=== PATIENT | female | born 1955 | race Caucasian/White ===

== ENCOUNTER → 2016-06-27 | Outpatient (CLI) | payer MEDICARE, MEDICAID ==
--- NOTE | 2016-06-27 19:43 | Diagnostic Imaging Report ---
INDICATION: Right knee pain x1 week. No known injury. TECHNIQUE: Three views of the right knee. CORRELATION STUDY: None FINDINGS: There is mild asymmetric joint space narrowing medially. Mild marginal osteophyte formation present. The articular surfaces demonstrate very slight loss of smooth contour medially. No definitive calcified intra-articular loose body. Minimal spur formation at the superior pole of patella. IMPRESSION: 1. Negative for acute bony abnormality of the knee. Mild degenerative changes particularly at the medial compartment. Dictated by: Dictated on workstation # [id number]
== END ==
LOC: RAD 15:12
PROVIDERS: ATTEND Family Medicine
DX: M25.561 Pain in right knee (principal)
CPT/HCPCS: 73562

== ENCOUNTER 2016-10-26 12:13 | Emergency (ER) | payer MEDICARE, MEDICAID ==
[2016-10-26] MEDS ORDERED: VIT1TABL82 PO (12:31)
[2016-10-26] MEDS ORDERED: CETI10TA17 (12:31)
[2016-10-26] MEDS ORDERED: DIVA500T PO (12:31)
[2016-10-26] MEDS ORDERED: HYDR-757 PO (12:43)
[2016-10-26] MEDS ORDERED: NS IV 500 ML 500 ML ONE (12:44)
[2016-10-26] MEDS ORDERED: ETOMIDATE IV SOLN 20 MG/10 ML VIAL IV ONE (12:45)
== END 2016-10-26 13:44 | disposition home or self-care (01) ==
DX: S43.004A Unspecified dislocation of right shoulder joint, initial encounter (principal); X58.XXXA Exposure to other specified factors, initial encounter

== ENCOUNTER → 2016-10-26 | Outpatient (CLI) | payer MEDICARE, MEDICAID ==
[~2016-10-26] MED LIST: CETI10TA17; DIVA500T PO; HYDR-757 PO; VIT1TABL82 PO
--- NOTE | 2016-10-26 11:03 | Diagnostic Imaging Report ---
INDICATION: Patient quit using right arm. Findings: There is anterior inferior dislocation of the humeral head with respect to the glenoid fossa. There are no humeral fractures present. Elbow appears in good alignment. IMPRESSION: Dislocation of the glenohumeral joint with no fractures demonstrated. Dictated by: Dictated on workstation # [id number]
--- NOTE | 2016-10-26 11:03 | Diagnostic Imaging Report ---
INDICATION: Quit using right arm. FINDINGS: There is anterior inferior dislocation of the humeral head with respect to the glenoid fossa. No fractures are demonstrated. AC joint is in good alignment. Scapula appears intact. IMPRESSION: Anterior-inferior dislocation of the humerus. Report was called to Dr. Arellano by roberto at 11:03 am. Dictated by: Dictated on workstation # [id number]
== END ==
LOC: RAD 10:38
PROVIDERS: ATTEND Family Medicine
DX: S43.014A Anterior dislocation of right humerus, initial encounter (principal); X58.XXXA Exposure to other specified factors, initial encounter; Y99.8 Other external cause status
CPT/HCPCS: 73030; 73060

== ENCOUNTER 2020-08-02 09:46 | Emergency (ER) | payer MEDICARE, MEDICAID ==
[~2020-08-02] VITALS: Ht 149.8 cm; Wt 40.8 kg
[2020-08-02 09:46] VITALS: BP 128/84
[~2020-08-02 09:46] MED LIST changes: +HYDR-4226 PO; -HYDR-757 PO
--- NOTE | 2020-08-02 10:27 | ED General ---
General Chief Complaint: Hip/Pelvic Problems Stated Complaint: HIP PAIN Source of Information: Caregiver, Old Records Exam Limitations: Physical Impairments History of Present Illness Date Seen by Provider: Aug 02, 2020 Time Seen by Provider: 10:18 Initial Comments Patient is a 65-year-old female who is brought to the emergency department by a caregiver today with a chief complaint of concern for possible hip pain or illness. Keenan has a history of significant mental impairment and is nonverbal on a routine basis. Caregiver at the bedside states that she really did not want to get herself dressed today. She does not seem to be is eager to participate in activities and she is not moving around like she normally does. No reported fevers or chills. No vomiting or diarrhea is noted. The patient wears adult diapers. No concern for recent falls or trauma. She did receive her Covid vaccination on July 22, her first dose. Caregiver at the bedside does not believe that the symptoms have been ongoing since the Covid vaccination but he states could be related to her vaccination. She was given a dose of ibuprofen yesterday and he seemed to believe that she was a little bit more perky this morning when she was gotten up. Review of systems limited secondary to the patient's nonverbal/mental impairment state. Severity: Mild Associated Systoms: Malaise; No Nausea/Vomiting Allergies and Home Medications Allergies Coded Allergies: No Known Drug Allergies (Unverified , 10/26/16) Home Medications Hydrocodone/Acetaminophen 1 Each Tablet, 1 EACH PO Q4H PRN for PAIN-SEVERE Prescribed by: SRINIVAS LEONARD on 10/26/16 1243 Patient Home Medication List Home Medication List Reviewed: Yes Review of Systems Review of Systems Constitutional: see HPI EENTM: no symptoms reported Respiratory: no symptoms reported; No cough Cardiovascular: no symptoms reported Gastrointestinal: No diarrhea, No vomiting Genitourinary: no symptoms reported Skin: no symptoms reported Psychiatric/Neurological: Other (patient less active than normal) Past Iryqulw-Cfsskh-Oxxyvl Hx Patient Social History Alcohol Use: Denies Use Smoking Status: Never a Smoker Recent Hopitalizations: No Immunizations Up To Date Tetanus Booster (TDap): Unknown Seasonal Allergies Seasonal Allergies: Yes Past Medical History Surgeries: Yes (BILATERAL HIP PAIN) Orthopedic Respiratory: No Cardiac: No Neurological: No Genitourinary: No Gastrointestinal: No Musculoskeletal: No Endocrine: No HEENT: No Cancer: No Psychosocial: No Integumentary: No Blood Disorders: No Physical Exam Vital Signs Capillary Refill : Height, Weight, BMI Height: 5'0" Weight: 96lbs. oz. 43.798599fo; BMI Method:Stated General Appearance: No Apparent Distress, WD/WN HEENT: Other (Patient has anisocoria left eye, chronic) Neck: Normal Inspection Respiratory: Lungs Clear, Normal Breath Sounds, No Accessory Muscle Use, No Respiratory Distress Cardiovascular: Regular Rate, Rhythm Gastrointestinal: Normal Bowel Sounds, Non Tender, Soft Extremity: Normal Capillary Refill, Normal Inspection, Normal Range of Motion, Non Tender Neurologic/Psychiatric: Alert, No Motor/Sensory Deficits, Normal Mood/Affect Skin: Normal Color, Warm/Dry Procedures/Interventions Patient Education: Explained Benefits Breath Sounds per Auscultation: Clear Heart Sounds per Auscultation: Regular Airway Exam: Mouth opens >2 fingers Sedation Adminstration Time: 1257 Re-examination Time: 1326 Progress/Results/Core Measures Suspected Sepsis SIRS Temperature: Pulse: Respiratory Rate: Blood Pressure / Mean: Results/Orders Vital Signs/I&O Capillary Refill : Progress Note : Time: 10:29 Progress Note Patient seen and examined, 65-year-old with severe mental impairment presents to the emergency department with concern for "not acting right". Evaluation today includes a physical exam. On exam Keenan looks well she is appropriately alert and interactive with this examiner. She grunts and groans on a normal basis according to the caregiver at the bedside. She does not seem to be in any distress with manipulation of her lower extremities. She has good strength. Appears to have intact sensation. Palpation of the abdomen and suprapubic area does not elicit any grimacing or distress from the patient. I do not believe that she has any clinical indications for concern for urinary tract infection. She is clean and well-kept. She does not have any objective findings concerning for sepsis. She is not tachycardic hypotensive or hypoxic. Reassurance is given to the caregiver. He verbalizes understanding. All questions are sought and answered. Patient is stable for discharge. Departure Impression Primary Impression: Well adult exam Disposition: 01 HOME, SELF-CARE Condition: Stable Departure-Patient Inst. Decision time for Depature: 10:31 Referrals: JORI TOLENTINO DO (PCP/Family) Primary Care Physician Patient Instructions: Yearly Physical for Adults Add. Discharge Instructions: Continue current medications as previously prescribed. Offer a dose of Tylenol or ibuprofen today to see if this improves symptoms. Otherwise, return to the emergency room for re evaluation for any fevers, vomiting, new emergent concerns. WENDY MANNING MD Aug 02, 2020 10:27
== END 2020-08-02 10:38 | disposition home or self-care (01) ==
LOC: EDUNIT# 09:46 → ER 09:47
DX: Z00.00 Encounter for general adult medical examination without abnormal findings (principal); H57.02 Anisocoria
CPT/HCPCS: 99282

== ENCOUNTER 2021-06-16 13:54 | Inpatient (IN) | payer MEDICARE, MEDICAID ==
[~2021-06-16] VITALS: Ht 152.4 cm; Wt 43.5 kg
[~2021-06-16 13:54] MED LIST changes: -CETI10TA17; +CETI10TA17 PO
--- NOTE | 2021-06-16 14:17 | ED General ---
General Stated Complaint: DEHYDRATION Source of Information: Patient Exam Limitations: No Limitations History of Present Illness Date Seen by Provider: Jun 16, 2021 Time Seen by Provider: 14:17 Initial Comments To ER by private vehicle from Dr. Tolentino's office with reports of general weakness. She is less active today. Normally the patient is ambulatory but is not today. She is mentally retarded and nonverbal per baseline though she is typically more perk and active. She was seen at Dr. Tolentino's office, had some outpatient labs done, those showed hypernatremia with a sodium of 152, GFR 35 and some slightly elevated liver enzymes. She was referred to the emergency room. Timing/Duration: 1-2 Days Severity: Moderate Associated Systoms: Denies Symptoms Allergies and Home Medications Allergies Coded Allergies: No Known Drug Allergies (Unverified , 10/26/16) Patient Home Medication List Home Medication List Reviewed: Yes Cetirizine HCl (Cetirizine HCl) 10 Mg Tablet, (Reported) Entered as Reported by: MARCUS GONZALEZ on 10/26/16 1231 Divalproex Sodium (Depakote) 500 Mg Tablet., Unknown Dose PO, (Reported) Entered as Reported by: MARCUS GONZALEZ on 10/26/16 1231 Hydrocodone/Acetaminophen (Hydrocodone/Acetaminophen 5 MG/325 MG TAB) 1 Each Tablet, 1 EACH PO Q4H PRN for PAIN-SEVERE Prescribed by: SRINIVAS LEONARD on 10/26/16 1243 Vit B Comp/C/FA/Iron/Vit E (Vitamin B Complex Tablet) 1 Each Tablet, 1 EACH PO, (Reported) Entered as Reported by: MARCUS GONZALEZ on 10/26/16 1231 Review of Systems Review of Systems Constitutional: see HPI EENTM: see HPI Respiratory: no symptoms reported Cardiovascular: no symptoms reported Genitourinary: no symptoms reported Musculoskeletal: no symptoms reported Skin: no symptoms reported Psychiatric/Neurological: No Symptoms Reported Hematologic/Lymphatic: No Symptoms Reported Immunological/Allergic: no symptoms reported Past Avjtnlx-Jioaxe-Qlhjya Hx Immunizations Up To Date Tetanus Booster (TDap): Unknown Seasonal Allergies Seasonal Allergies: Yes Past Medical History Surgeries: Yes (BILATERAL HIP PAIN) Orthopedic Respiratory: No Cardiac: No Neurological: No Genitourinary: No Gastrointestinal: No Musculoskeletal: No Endocrine: No HEENT: No Cancer: No Psychosocial: No Integumentary: No Blood Disorders: No Physical Exam Vital Signs Vital Signs - First Documented 06/16/21 14:00 Temp 36.0 Pulse 84 Resp 16 B/P (MAP) 109/71 (84) O2 Delivery Room Air Capillary Refill : Height, Weight, BMI Height: 5'0" Weight: 96lbs. oz. 43.313994fk; 18.00 BMI Method:Stated General Appearance: No Apparent Distress, WD/WN, Thin Eyes: Bilateral Eye Normal Inspection, Bilateral Eye PERRL, Bilateral Eye EOMI Neck: Full Range of Motion, Normal Inspection Respiratory: No Accessory Muscle Use, No Respiratory Distress Cardiovascular: Regular Rate, Rhythm, Normal Peripheral Pulses Gastrointestinal: Normal Bowel Sounds, Non Tender, Soft Genital/Rectal: Other (Assisted RN with straight catheterization. 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 We were unable to pass any catheter through that including even a 5 Grenadian feeding tube.) Extremity: Normal Capillary Refill, Normal Inspection Neurologic/Psychiatric: Other Skin: Normal Color, Warm/Dry, Other (Nonverbal, alert looking around the room. Minor bruising proximal right thigh) Focused Exam Lactate Level 06/16/21 15:00: Lactic Acid Level 1.35 Lactic Acid Level Laboratory Tests Test 06/16/21 15:00 Lactic Acid Level 1.35 MMOL/L (0.50-2.00) Procedures/Interventions Patient Education: Explained Benefits Breath Sounds per Auscultation: Clear Heart Sounds per Auscultation: Regular Airway Exam: Mouth opens >2 fingers Sedation Adminstration Time: 1257 Re-examination Time: 1326 Progress/Results/Core Measures Suspected Sepsis SIRS Temperature: Pulse: Respiratory Rate: Laboratory Tests 06/16/21 14:28: White Blood Count 8.7 Blood Pressure / Mean: 06/16/21 15:00: Lactic Acid Level 1.35 Laboratory Tests 06/16/21 14:28: Creatinine 1.32H, INR Comment 1.0, Platelet Count 259, Total Bilirubin 0.5 Results/Orders Lab Results Laboratory Tests Test 06/16/21 14:28 06/16/21 15:00 Range/Units White Blood Count 8.7 4.3-11.0 10^3/uL Red Blood Count 3.47 L 3.80-5.11 10^6/uL Hemoglobin 10.8 L 11.5-16.0 g/dL Hematocrit 34 L 35-52 % Mean Corpuscular Volume 98 80-99 fL Mean Corpuscular Hemoglobin 31 25-34 pg Mean Corpuscular Hemoglobin Concent 32 32-36 g/dL Red Cell Distribution Width 16.1 H 10.0-14.5 % Platelet Count 259 130-400 10^3/uL Mean Platelet Volume 11.9 9.0-12.2 fL Immature Granulocyte % (Auto) 1 % Neutrophils (%) (Auto) 78 H 42-75 % Lymphocytes (%) (Auto) 14 12-44 % Monocytes (%) (Auto) 5 0-12 % Eosinophils (%) (Auto) 2 0-10 % Basophils (%) (Auto) 0 0-10 % Neutrophils # (Auto) 6.8 1.8-7.8 10^3/uL Lymphocytes # (Auto) 1.2 1.0-4.0 10^3/uL Monocytes # (Auto) 0.5 0.0-1.0 10^3/uL Eosinophils # (Auto) 0.2 0.0-0.3 10^3/uL Basophils # (Auto) 0.0 0.0-0.1 10^3/uL Immature Granulocyte # (Auto) 0.1 0.0-0.1 10^3/uL Prothrombin Time 13.4 12.2-14.7 SEC INR Comment 1.0 0.8-1.4 Activated Partial Thromboplast Time 34 24-35 SEC Sodium Level 151 H 135-145 MMOL/L Potassium Level 4.1 3.6-5.0 MMOL/L Chloride Level 112 H 98-107 MMOL/L Carbon Dioxide Level 28 21-32 MMOL/L Anion Gap 11 5-14 MMOL/L Blood Urea Nitrogen 46 H 7-18 MG/DL Creatinine 1.32 H 0.60-1.30 MG/DL Estimat Glomerular Filtration Rate 45 BUN/Creatinine Ratio 35 Glucose Level 122 H 70-105 MG/DL Calcium Level 10.0 8.5-10.1 MG/DL Corrected Calcium 10.5 H 8.5-10.1 MG/DL Total Bilirubin 0.5 0.1-1.0 MG/DL Aspartate Amino Transf (AST/SGOT) 136 H 5-34 U/L Alanine Aminotransferase (ALT/SGPT) 286 H 0-55 U/L Alkaline Phosphatase 175 H 40-136 U/L Total Protein 7.2 6.4-8.2 GM/DL Albumin 3.4 3.2-4.5 GM/DL Lactic Acid Level 1.35 0.50-2.00 MMOL/L My Orders Orders - SRINIVAS LEONARD APRN Cbc With Automated Diff (06/16/21 14:16) Comprehensive Metabolic Panel (06/16/21 14:16) Blood Culture (06/16/21 14:16) Sputum Culture (06/16/21 14:16) Urinalysis (06/16/21 14:16) Urine Culture (06/16/21 14:16) Protime With Inr (06/16/21 14:16) Partial Thromboplastin Time (06/16/21 14:16) Chest 1 View, Ap/Pa Only (06/16/21 14:16) Ed Iv/Invasive Line Start (06/16/21 14:16) Ed Iv/Invasive Line Start (06/16/21 14:16) Vital Signs Adult Sepsis Patie Q15M (06/16/21 14:16) O2 (06/16/21 14:16) Remove Rings In Anticipation O (06/16/21 14:16) Lactic Acid Analyzer (06/16/21 14:16) Lactated Ringers (Lr 1000 Ml Iv Solution (06/16/21 14:30) Straight Cath (Urinary) (06/16/21 14:16) Ct Head/Cervical Spine Wo (06/16/21 15:32) Pelvis With Right Hip 2-3views (06/16/21 15:30) Fentanyl Inj (Sublimaze Injection) (06/16/21 15:45) Lidocaine 2% (Urojet) (Xylocaine Urojet) (06/16/21 16:30) Medications Given in ED Current Medications Medications Dose Ordered Sig/Seng Route Start Time Stop Time Status Last Admin Dose Admin Fentanyl Citrate 25 mcg ONCE PRN IVP 06/16/21 15:45 06/16/21 16:39 25 MCG Vital Signs/I&O 06/16/21 14:00 Temp 36.0 Pulse 84 Resp 16 B/P (MAP) 109/71 (84) O2 Delivery Room Air Capillary Refill : Departure Communication (Admissions) NAME: JAMAR HUTCHINSON MED REC#: [id number] PT STATUS: REG ER : 1955 PHYSICIAN: SRINIVAS LEONARD APRN ADMIT DATE: 06/16/21/ER Draft Date of Exam:06/16/21 PELVIS WITH RIGHT HIP 2-3VIEWS INDICATION: Fall. COMPARISON: None. FINDINGS: Frontal radiographic view of the pelvis and two dedicated radiographic views of the right hip were obtained and show acute appearing intertrochanteric fracture of the proximal right femur. There is mild impaction with angulation at the fracture site. Femoroacetabular joint space is maintained. Postsurgical changes of previous left hip hemiarthroplasty are noted. Femoral component appears well seated. No unexpected radiopaque foreign bodies are seen. Included portions of the abdomen and pelvis show a large amount of air and stool within the colon and rectum. IMPRESSION: 1. Acute intertrochanteric fracture of the proximal right femur. 2. Large amount of colorectal air and stool. Please correlate for impaction/constipation. Dictated on workstation # [id number] Dict: 06/16/21 1546 Trans: 06/16/21 1550 [id number] Interpreted by: JOSE MILLER MD Electronically signed by: NAME: JAMAR HUTCHINSON [facility] REC#: [id number] PT STATUS: REG ER : 1955 PHYSICIAN: SRINIVAS LEONARD APRN ADMIT DATE: 06/16/21/ER Draft Date of Exam:06/16/21 CT HEAD/CERVICAL SPINE WO CLINICAL INDICATION: Patient is status post fall. Patient complains of abnormal labs from PCP. EXAM: Head CT without IV contrast with sagittal and coronal reformations. Axial CT scan of the cervical spine with sagittal and coronal reformations. Auto Exposure Controls were utilized during the CT exam to meet ALARA standards for radiation dose reduction. COMPARISON: None. FINDINGS: Head CT: There is no evidence of acute cerebral infarct, intracranial hemorrhage, or gross mass effect. The brain parenchymal volume appears appropriate for patient's age. There is normal sainz-white matter distinction. There is no significant midline shift or herniation. There is no evidence of hydrocephalus. The basal cisterns are unremarkable. There is no skull fracture. There is a partially visualized dystrophic appearing area of calcification involving the right nasal cavity, which measures 2.9 cm x 1.4 cm in the AP x transverse dimension. There are bony sclerotic changes and thickening of the bilateral maxillary sinuses and sphenoid sinus. Skull, extracranial soft tissue, and orbits are unremarkable. The paranasal sinuses are unremarkable. Temporal bones show no significant abnormality. Cervical spine: There is no acute cervical spine fracture or dislocation. There is loss of cervical lordosis. There are hypertrophic spurs throughout the cervical spine and facet arthropathy. There is multilevel loss of disc space height, which is severe at the C5-C6 and C6-C7 levels, moderate to severe at the C4-C5 level, and moderate at the C2-C3 and C3-C4 levels. There is no significant neck soft tissue abnormality. Visualized portions of the upper lung hernadez are clear. IMPRESSION: 1: There is no evidence of acute intracranial process. There is no skull fracture or intracranial hemorrhage. 2: There is cervical spine degenerative disease with no acute fracture. 3: There is a partially visualized area of dystrophic calcification within the right nasal region. Nonemergent CT scan of the sinuses is suggested for further evaluation. Dictated on workstation # [id number] Dict: 06/16/21 1612 Trans: 06/16/21 1624 [id number] Interpreted by: BROWN TATUM MD Electronically signed by: Family Conversation [id number] spoke with Dr. Batista from orthopedics, I would tentatively plan to ope rate sometime tomorrow depending on OR availability. We will need to get a Gardner catheter in her given that she will be bedridden and she has a very strictured distally urethral meatus. I consulted Dr. Gibson. He will be by to evaluate the patient. I also spoke with Dr. Alcazar who will write admitting orders. Dr. Gibson did stop by and with a female sound was able to identify the urethra within the vaginal introitus and was able to insert a 14 Grenadian coud catheter without much trouble. There was no bleeding patient tolerated well. Sample was collected of the urine and sent to lab. The punctum at the inferior aspect of the partial penis is an imperforate tract. [id number] discussed the broken hip with the patient's caregiver Dianna who is also a staff member from the facility [facility]. She states that Keenan has not wanted to get up for about for 5 days. They do not recall any injury but are not surprised hearing that she has an injury because she has a history of climbing on top of her dresser and jumping off. They had to put her dresser in the closet so she would not do that. Subsequently she has been climbing on furniture and jumping off. They typically do not know that she is done that until she exhibits some sort of symptom of injury such as a limp. I also discussed with Dianna the difficulties we are having with Gardner catheter placement. Dianna replies "she's both parts, male and female. The urethra is in the female part. Impression Primary Impression: Closed right hip fracture Disposition: ADMITTED INPATIENT Condition: Stable Admissions Decision to Admit Reason: Admit from ER (General) Decision to Admit/Date: Jun 16, 2021 Time/Decision to Admit Time: 15:34 Departure-Patient Inst. Referrals: JORI TOLENTINO DO (PCP/Family) Primary Care Physician SRINIVAS LEONARD APRN Jun 16, 2021 14:17
[2021-06-16] MEDS ORDERED: LACTATED RINGERS 1,000 ML IV SCH (14:30)
[2021-06-16 14:54] LABS: BASOPHILS % (AUTO) 0 % (0-10); EOSINOPHILS # (AUTO) 0.2 10^3/uL (0.0-0.3); EOSINOPHILS % (AUTO) 2 % (0-10); HEMATOCRIT 34 % (35-52); HEMOGLOBIN 10.8 g/dL (11.5-16.0); LYMPHOCYTES # (AUTO) 1.2 10^3/uL (1.0-4.0); LYMPHOCYTES % (AUTO) 14 % (12-44); MEAN CORPUSCULAR HEMOGLOBIN 31 pg (25-34); MEAN CORPUSCULAR HGB CONC 32 g/dL (32-36); MEAN CORPUSCULAR VOLUME 98 fL (80-99); MEAN PLATELET VOLUME 11.9 fL (9.0-12.2); MONOCYTES # (AUTO) 0.5 10^3/uL (0.0-1.0); MONOCYTES % (AUTO) 5 % (0-12); NEUTROPHILS # (AUTO) 6.8 10^3/uL (1.8-7.8); NEUTROPHILS % (AUTO) 78 % (42-75); PLATELET COUNT 259 10^3/uL (130-400); WHITE BLOOD COUNT 8.7 10^3/uL (4.3-11.0)
[2021-06-16 15:03] LABS: ALBUMIN 3.4 GM/DL (3.2-4.5); POTASSIUM 4.1 MMOL/L (3.6-5.0)
[2021-06-16 15:05] LABS: TOTAL PROTEIN 7.2 GM/DL (6.4-8.2)
[2021-06-16 15:06] LABS: PROTHROMBIN TIME PATIENT 13.4 SEC (12.2-14.7)
[2021-06-16 15:07] LABS: BILIRUBIN,TOTAL 0.5 MG/DL (0.1-1.0)
[2021-06-16 15:09] LABS: CREATININE SERUM 1.32 MG/DL (0.60-1.30)
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
[2021-06-16] MEDS ORDERED: fentaNYL INJ 100 MCG/2 ML AMP IVP PRN (15:45)
--- NOTE | 2021-06-16 15:50 | Diagnostic Imaging Report ---
INDICATION: Fall. COMPARISON: None. FINDINGS: Frontal radiographic view of the pelvis and two dedicated radiographic views of the right hip were obtained and show acute appearing intertrochanteric fracture of the proximal right femur. There is mild impaction with angulation at the fracture site. Femoroacetabular joint space is maintained. Postsurgical changes of previous left hip hemiarthroplasty are noted. Femoral component appears well seated. No unexpected radiopaque foreign bodies are seen. Included portions of the abdomen and pelvis show a large amount of air and stool within the colon and rectum. IMPRESSION: 1. Acute intertrochanteric fracture of the proximal right femur. 2. Large amount of colorectal air and stool. Please correlate for impaction/constipation. Dictated by: Dictated on workstation # [id number]
--- NOTE | 2021-06-16 16:24 | Diagnostic Imaging Report ---
CLINICAL INDICATION: Patient is status post fall. Patient complains of abnormal labs from PCP. EXAM: Head CT without IV contrast with sagittal and coronal reformations. Axial CT scan of the cervical spine with sagittal and coronal reformations. Auto Exposure Controls were utilized during the CT exam to meet ALARA standards for radiation dose reduction. COMPARISON: None. FINDINGS: Head CT: There is no evidence of acute cerebral infarct, intracranial hemorrhage, or gross mass effect. The brain parenchymal volume appears appropriate for patient's age. There is normal sainz-white matter distinction. There is no significant midline shift or herniation. There is no evidence of hydrocephalus. The basal cisterns are unremarkable. There is no skull fracture. There is a partially visualized dystrophic appearing area of calcification involving the right nasal cavity, which measures 2.9 cm x 1.4 cm in the AP x transverse dimension. There are bony sclerotic changes and thickening of the bilateral maxillary sinuses and sphenoid sinus. Skull, extracranial soft tissue, and orbits are unremarkable. The paranasal sinuses are unremarkable. Temporal bones show no significant abnormality. Cervical spine: There is no acute cervical spine fracture or dislocation. There is loss of cervical lordosis. There are hypertrophic spurs throughout the cervical spine and facet arthropathy. There is multilevel loss of disc space height, which is severe at the C5-C6 and C6-C7 levels, moderate to severe at the C4-C5 level, and moderate at the C2-C3 and C3-C4 levels. There is no significant neck soft tissue abnormality. Visualized portions of the upper lung hernadez are clear. IMPRESSION: 1: There is no evidence of acute intracranial process. There is no skull fracture or intracranial hemorrhage. 2: There is cervical spine degenerative disease with no acute fracture. 3: There is a partially visualized area of dystrophic calcification within the right nasal region. Nonemergent CT scan of the sinuses is suggested for further evaluation. Dictated by: Dictated on workstation # [id number]
[2021-06-16] MEDS ORDERED: LIDOCAINE UROJET 2% GEL 10 ML PKG TOP ONE (16:30)
[2021-06-16 17:33] LABS: BILIRUBIN,URINE NEGATIVE (NEGATIVE); CLARITY,URINE CLEAR; COLOR,URINE YELLOW; GLUCOSE, URINE (UA) NEGATIVE (NEGATIVE); KETONES,URINE NEGATIVE (NEGATIVE); LEUKOCYTE ESTERASE ,URINE 3+ (NEGATIVE); NITRITE,URINE NEGATIVE (NEGATIVE); PROTEIN,URINE NEGATIVE (NEGATIVE)
[2021-06-16 17:40] LABS: BACTERIA,URINE NEGATIVE /HPF
[2021-06-16 18:07] VITALS: BP 93/61
[2021-06-16] MEDS ORDERED: ANTACID SUSP 30 ML UDC (MYLANTA) PO PRN (18:30)
[2021-06-16] MEDS ORDERED: morphine INJ 4 MG/ML 1 ML (VIAL/SYRINGE) IV PRN (18:30)
[2021-06-16] MEDS ORDERED: ACETAMINOPHEN 325 MG TABLET PO PRN (18:30)
[2021-06-16] MEDS ORDERED: polyethylene glycoL POWDER 17 GM (MIRALAX) PACK PO PRN (18:30)
[2021-06-16] MEDS ORDERED: ONDANSETRON 4 MG (ZOFRAN) ORAL DISSOLVE TAB PO PRN (18:30)
[2021-06-16] MEDS ORDERED: MILK OF MAGNESIA 400 MG/5 ML 30 ML UDC PO PRN (18:30)
[2021-06-16] MEDS ORDERED: CALCIUM CARBONATE 500 MG (TUMS) TAB.CHEW PO PRN (18:30)
[2021-06-16] MEDS ORDERED: BISACODYL 10 MG SUPP (DULCOLAX) PR PRN (18:30)
[2021-06-16] MEDS ORDERED: MELATONIN 3 MG TABLET PO PRN (18:30)
[2021-06-16] MEDS ORDERED: NALOXONE 0.4 MG/ML 1 ML (NARCAN) VIAL IV PRN (18:30)
[2021-06-16] MEDS ORDERED: ONDANSETRON 4 MG/2 ML (SDV) Z0FRAN IV PRN (18:30)
[2021-06-16] MEDS ORDERED: diphenhydrAMINE 25 MG TAB (BENADRYL) PO PRN (18:30)
[2021-06-16] MEDS ORDERED: diphenhydrAMINE 50 MG/ML INJ (BENADRYL) IVP PRN (18:30)
[2021-06-16] MEDS ORDERED: LACTULOSE SYRUP 10GM/15ML (ENULOSE) 30ML UDC PO PRN (18:30)
[2021-06-16] MEDS: D5 1/2 NS W/KCL 20 MEQ/L 1,000 ML IV SCH (18:46)
[2021-06-16 19:01] VITALS: BP 96/70
[2021-06-16 19:21] VITALS: BP 109/71
[2021-06-16] MEDS ORDERED: cefTRIAXone 1 GM PRE-MIX 50 ML IV ONE (19:30)
[2021-06-16] MEDS ORDERED: RT-ALBUTEROL SULF 2.5 MG/3 ML PRE-MIX VIAL INH PRN (19:30)
[2021-06-16 20:00] VITALS: BP 96/70
[2021-06-16] MEDS: SENNOSIDES 8.6 MG (SENOKOT) TAB PO SCH (20:37)
[2021-06-16] MEDS: DOCUSATE SODIUM 100 MG (COLACE) CAP PO SCH (20:37)
[2021-06-16] MEDS: KETOROLAC 15 MG/ML VIAL IV SCH (23:28)
[2021-06-17] VITALS (15 sets, daily range): BP systolic 79–109; BP diastolic 51–71
--- NOTE | 2021-06-17 04:32 | CONSULTATION REPORT ---
DATE OF SERVICE: 06/16/2021 CONSULTATION AND PROCEDURE REPORT ATTENDING PHYSICIANS: Dr. Alcazar and Dr. Batista. 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 Maldonado. Catheter was ordered by Dr. Alcazar. Emergency room staff were unable to insert the catheter because of ambiguous genitalia and I was consulted. I came to the emergency room of course could not obtain any history from the patient because of her mental condition. Examination of the genitalia revealed a microphallus with an obliterated, pinpoint opening in the shafts of the penis that was leading to nowhere and then there was an opening that looked like a urethral meatus in a woman in a very stenotic vagina, which give the picture of pseudohermaphrodite. IMPRESSION: Ambiguous genitalia with pseudohermaphrodite and inability to insert Gardner catheter. PLAN: I went ahead using pediatric dilators starting with 8-Maltese, I was able to dilate the meatus carefully without going too deep just to opening the meatus and I was able to open it to admit a 14-Maltese coude catheter inserted. The balloon was no pressure. Irrigated the catheter easily with a recovery of barbie urine color send that for culture and sensitivity. Connected the catheter to dependent drainage. There was no trauma at all. There was no bleeding from anywhere whether in the urine or in the genitalia. PLAN: We will see how the catheter drain over the next few hours and if there is any issue or problem with that, I recommend transfer to a tertiary center more familiar with this particular rare condition. This was explained to the ER staff. CC: Dr. Mel Mcfarlane -- requested, unable to deliver. CC: Silas Montano -- requested, unable to deliver. CC: Dr. Batista. Job ID: [id number] DocumentID: [id number] Dictated Date: 06/16/2021 22:32:11 Telesales Supervisor Date: 06/17/2021 00:46:09 Dictated By: DALILA ACROS MD [facility]
[2021-06-17] MEDS: D5 1/2 NS W/KCL 20 MEQ/L 1,000 ML IV SCH ×2 (04:51→17:29)
[2021-06-17] MEDS: KETOROLAC 15 MG/ML VIAL IV SCH ×3 (04:52→17:27)
[2021-06-17] MEDS ORDERED: ceFAZolin INJECTION 1,000 MG VIAL IV NR (07:00)
[2021-06-17] MEDS ORDERED: FLU QUADRIvalent (3YOA+) 60 mcg/0.5 ml 2021-22(AFLURIA) IM ONE (07:00)
[2021-06-17] MEDS ORDERED: LACTATED RINGERS 1,000 ML IV PRN (07:15)
[2021-06-17] MEDS ORDERED: ONDANSETRON 4 MG/2 ML (SDV) Z0FRAN IVP PRN (07:15)
[2021-06-17] MEDS ORDERED: morphine INJ 10 MG/ML 1ML (SYR OR VIAL) IVP ONE (07:15)
[2021-06-17] MEDS ORDERED: proPOfol 200 MG/20 ML (DIPRIVAN) VIAL IV ONE (07:16)
[2021-06-17] MEDS ORDERED: fentaNYL INJ 100 MCG/2 ML AMP ONE (07:16)
[2021-06-17] MEDS ORDERED: MIDAZOLAM 2 MG/2 ML (VERSED) VIAL ONE (07:16)
[2021-06-17] MEDS ORDERED: ONDANSETRON 4 MG/2 ML (SDV) Z0FRAN ONE (07:16)
[2021-06-17] MEDS ORDERED: LIDOCAINE PF 2% 5 ML (XYLOCAINE) VIAL ONE (07:16)
[2021-06-17] MEDS ORDERED: ceFAZolin INJECTION 1,000 MG ONE (07:17)
--- NOTE | 2021-06-17 07:19 | Consultation - Ortho ---
Consult - Ortho Subjective Date of Exam 06/17/21 Chief Complaint Not walking HPI/Events since last exam patient lives in a retirement, was brought to ER for lack of activity and some medical issues, ER evaluation did find an intertrochanteric fracture of the right hip, I was consulted to manage the fracture Medical, Surgical History - Social History - Family History - Review of Systems - Allergies: Coded Allergies: No Known Drug Allergies (Unverified , 10/26/16) Home Meds Active Scripts Hydrocodone/Acetaminophen (Hydrocodone/Acetaminophen 5 MG/325 MG TAB) 1 Each Tablet, 1 EACH PO Q4H PRN for PAIN-SEVERE, #10 TAB Prov:SRINIVAS LEONARD HANDYMAN 10/26/16 Reported Medications Vit B Comp/C/FA/Iron/Vit E (Vitamin B Complex Tablet) 1 Each Tablet, 1 EACH PO, TAB 10/26/16 Divalproex Sodium (Depakote) 500 Mg Tablet., PO, TAB 10/26/16 Cetirizine HCl (Cetirizine HCl) 10 Mg Tablet, #30 10/26/16 Objective Exam Right Hip: skin intact, sensation grossly intact to light touch, pulses 2+ Vital Signs Vital Signs Date Time Temp Pulse Resp B/P (MAP) Pulse Ox O2 Delivery O2 Flow Rate FiO2 06/17/21 04:13 36.1 66 20 96/63 (74) 95 Room Air 06/17/21 00:52 35.9 67 109/70 (83) 96 Room Air 06/16/21 20:45 Room Air 06/16/21 20:00 36.5 74 18 96/70 (79) 89 Room Air 06/16/21 19:21 36.0 84 96 21 06/16/21 19:01 36.5 74 16 96/70 (79) 89 Room Air 06/16/21 18:50 Room Air 06/16/21 18:07 36.2 59 16 93/61 (72) 95 Room Air 06/16/21 17:42 79 16 119/68 96 Room Air 06/16/21 14:00 36.0 84 16 109/71 (84) Room Air I & O 06/17/21 07:00 Intake Total 1050 ml Output Total 0 ml Balance 1050 ml Lab Results Laboratory Tests 06/16/21 14:28: White Blood Count 8.7, Red Blood Count 3.47L, Hemoglobin 10.8L, Hematocrit 34L, Mean Corpuscular Volume 98, Mean Corpuscular Hemoglobin 31, Mean Corpuscular Hemoglobin Concent 32, Red Cell Distribution Width 16.1H, Platelet Count 259, Mean Platelet Volume 11.9, Immature Granulocyte % (Auto) 1, Neutrophils (%) (Auto) 78H, Lymphocytes (%) (Auto) 14, Monocytes (%) (Auto) 5, Eosinophils (%) (Auto) 2, Basophils (%) (Auto) 0, Neutrophils # (Auto) 6.8, Lymphocytes # (Auto) 1.2, Monocytes # (Auto) 0.5, Eosinophils # (Auto) 0.2, Basophils # (Auto) 0.0, Immature Granulocyte # (Auto) 0.1, Prothrombin Time 13.4, INR Comment 1.0, Activated Partial Thromboplast Time 34, Sodium Level 151H, Potassium Level 4.1, Chloride Level 112H, Carbon Dioxide Level 28, Anion Gap 11, Blood Urea Nitrogen 46H, Creatinine 1.32H, Estimat Glomerular Filtration Rate 45, BUN/Creatinine Ratio 35, Glucose Level 122H, Calcium Level 10.0, Corrected Calcium 10.5H, Total Bilirubin 0.5, Aspartate Amino Transf (AST/SGOT) 136H, Alanine Aminotransferase (ALT/SGPT) 286H, Alkaline Phosphatase 175H, Total Protein 7.2, Albumin 3.4 06/16/21 15:00: Lactic Acid Level 1.35 06/16/21 17:24: Urine Color YELLOW, Urine Clarity CLEAR, Urine pH 6.0, Urine Specific Telephone 1.010L, Urine Protein NEGATIVE, Urine Glucose (UA) NEGATIVE, Urine Ketones NEGATIVE, Urine Nitrite NEGATIVE, Urine Bilirubin NEGATIVE, Urine Urobilinogen 0.2, Urine Leukocyte Esterase 3+H, Urine RBC (Auto) 3+H, Urine RBC 5-10H, Urine WBC 10-25H, Urine Squamous Epithelial Cells 5-10, Urine Renal Epithelial Cells NONE, Urine Crystals NONE, Urine Bacteria NEGATIVE, Urine Casts NONE, Urine Mucus NEGATIVE, Urine Culture Indicated CULTURE PENDING 06/16/21 23:45: Influenza Type A Antigen NEGATIVE, Influenza Type B Antigen NEGATIVE, SARS-CoV-2 RNA (RT-PCR) Negative Imaging Pelvis and 2 views of the right hip dated 06/16/21 were reviewed from PACS and demonstrated a comminuted right intertrochanteric femur fracture Assessment and Plan Assessment Right Intertrochanteric Femur Fracture Problem List Right Intertrochanteric Femur Fracture Plan I have recommended proceeding with reduction and fixation of the right IT femur fracture. Consent has been obtained from her guardian. Will proceed with stabilization of the fracture this AM. Final Diagonsis Right Intertrochanteric Femur Fracture Level of the visit: Level 3 (preop global) KASSIDY STARR MD Jun 17, 2021 07:19
[2021-06-17] MEDS ORDERED: PHENYLEPHRINE 100 MCG/ML 10 ML (ANESTHESIA) SYR ONE (07:43)
[2021-06-17] MEDS ORDERED: GLYCOPYRROLATE 0.2 MG/ML (ROBINUL) 2 ML VIAL ONE (07:43)
[2021-06-17] MEDS ORDERED: ESMOLOL 100 MG/10 ML (BREVIBLOC) VIAL ONE (07:52)
[2021-06-17] MEDS ORDERED: SEVOFLURANE (ULTANE) 15 ML INHAL SOLN ONE (08:33)
--- NOTE | 2021-06-17 08:46 | Operative Report - Ortho ---
Operative Report Surgeon (s)/Film Reproducer (s) Surgeon KASSIDY STARR MD Film Reproducer n/a Pre-Operative Diagnosis Right Intertrochanteric Femur Fracture Post-Operative Diagnosis same Operative Report Date of Procedure: Jun 17, 2021 Name of Procedure Performed: Intramedullary Nailing of Right Intertrochanteric Femur Fracture Description & Findings After obtaining informed consent and marking the patient in the preoperative holding area, the patient was administered IV antibiotics and taken to the operating room. Anesthesia was induced. Patient was transferred to the fracture table. Surgical timeout was taken. The right lower extremity was placed in the traction spar and the left was placed in the well leg pond. The right lower extremity was prepped and draped in the usual sterile fashion. Incision was made just proximal to the greater trochanter. Blunt dissection was performed down to the tip of the trochanter. A guide wire was placed through a trochanteric entry point. Position of the wire was confirmed using C-arm. An entry reamer was then placed over the guidewire and reamed to the level of the lesser trochanter. Secondary to patient's small stature, the canal was reamed over a guide wire through the isthmus of the intramedullary canal beginning with a 9.5 mm reamer and reaming to an 11.5 mm reamer. A trochanteric gamma nail with a 125 degree angle was selected and assembled on the back table. Nail was inserted through the trochanteric entry point and seated by hand. Position of the nail was confirmed using C-arm. A guide wire was placed for the cephalomedullary screw. Version of the wire was obtained on the lateral. Measurement was taken and the reamer was set to 75 mm. Reamer was used over the guidewire and then the cephalomedullary screw was placed. Position of the cephalomedullary screw was confirmed on C-arm. Set screw was then tightened onto the cephalomedullary screw and then backed off 1/4 turn. Attention was then turned to the distal screw and using the provided guides, a 32.5 mm screw was placed through the dynamic portion of the distal slot. Final C arm images were obtained, demonstrated appropriate placement of hardware with adequate reduction, and were transferred to PACS. Incision sites were irrigated with normal saline. Closed subcutaneously with 2- 0 vicryl and skin was closed with maxine. Dressed with xeroform, 4x4s, ABD, and tape. Patient tolerated the procedure well and was stable to the recovery room. Anesthesia Type General Estimated Blood Loss 100 mL Specimen(s) collected/removed None KASSIDY STARR MD Jun 17, 2021 08:46
[2021-06-17] MEDS ORDERED: BUPIVACAINE 0.25% 30 ML (SENSORCAINE) VIAL ONE (08:54)
--- NOTE | 2021-06-17 08:55 | Diagnostic Imaging Report ---
INDICATION: Right hip pain IMPRESSION: 71.7 seconds of fluoroscopy and 3 intraoperative digital images were used in surgery by Dr. Batista during internal fixation of the right hip. The bones appear to be transfixed in good alignment with a dynamic compression screw. Dictated by: Dictated on workstation # [id number]
[2021-06-17] MEDS: DOCUSATE SODIUM 100 MG (COLACE) CAP PO SCH ×2 (09:00→19:49)
[2021-06-17 09:05] LABS: BASOPHILS % (AUTO) 0 % (0-10); EOSINOPHILS # (AUTO) 0.3 10^3/uL (0.0-0.3); EOSINOPHILS % (AUTO) 5 % (0-10); HEMATOCRIT 28 % (35-52); HEMOGLOBIN 9.1 g/dL (11.5-16.0); LYMPHOCYTES # (AUTO) 1.7 10^3/uL (1.0-4.0); LYMPHOCYTES % (AUTO) 24 % (12-44); MEAN CORPUSCULAR HEMOGLOBIN 32 pg (25-34); MEAN CORPUSCULAR HGB CONC 33 g/dL (32-36); MEAN CORPUSCULAR VOLUME 99 fL (80-99); MEAN PLATELET VOLUME 11.5 fL (9.0-12.2); MONOCYTES # (AUTO) 0.3 10^3/uL (0.0-1.0); MONOCYTES % (AUTO) 5 % (0-12); NEUTROPHILS # (AUTO) 4.5 10^3/uL (1.8-7.8); NEUTROPHILS % (AUTO) 65 % (42-75); PLATELET COUNT 214 10^3/uL (130-400); WHITE BLOOD COUNT 6.9 10^3/uL (4.3-11.0)
[2021-06-17 09:15] LABS: ALBUMIN 2.7 GM/DL (3.2-4.5); POTASSIUM 4.2 MMOL/L (3.6-5.0)
[2021-06-17 09:16] LABS: CALCIUM 8.5 MG/DL (8.5-10.1)
[2021-06-17 09:17] LABS: TOTAL PROTEIN 5.6 GM/DL (6.4-8.2)
[2021-06-17 09:19] LABS: BILIRUBIN,TOTAL 0.3 MG/DL (0.1-1.0)
[2021-06-17 09:21] LABS: CREATININE SERUM 1.13 MG/DL (0.60-1.30)
--- NOTE | 2021-06-17 10:15 | Occ Therapy Progress Note ---
Therapy Progress Note OT orders received, pt underwent surgery today. OT will initiate evaluation/tx tomorrow. WICHO PUCKETT OT Jun 17, 2021 10:15
[2021-06-17] MEDS: SENNOSIDES 8.6 MG (SENOKOT) TAB PO SCH ×2 (11:53→19:50)
--- NOTE | 2021-06-17 12:43 | History & Physical-Hospitalist ---
HOPEDRO 06/17/21 1243: History of Present Illness HPI/Chief Complaint CC: Decreased activity, decreased oral intake HPI: Kandace Che is a 66yoF with PMHx of mental disability and ambiguous genitalia who presents to the ED from a group facility. Her caregiver states that the patient has had decreased activity and decreased oral intake over the past couple of days prior to presentation. The patient was evaluated at an outpatient clinic prior to presentation and her laboratory values were measured. The caregiver stated that she could not remember anything being abnormal from those values. Upon evaluation in the ED, the patient was found to be dehydrated and an incidental right intertrochanteric femur fracture was found. Dr. Batista was consulted for surgical treatment and plans for surgical fixation on 06/17/21. Additionally, nursing staff had difficulty inserting a ziegler catheter, so Dr. Gibson was consulted. He evaluated the patient and was able to insert a ziegler catheter successfully prior to surgery. Source: RN/MD, caregiver Exam Limitations: physical impairment Date Seen 06/17/21 Time Seen by a Provider: 10:30 Attending Physician Danna Lee DO PCP Julian Arellano DO Referring Physician Date of Admission Jun 16, 2021 at 16:23 Home Medications & Allergies Home Medications Reviewed patient Home Medication Reconciliation performed by pharmacy medication reconciliations cad technician and/or nursing. Patients Allergies have been reviewed. Allergies Allergies Coded Allergies No Known Drug Allergies (Unverified10/26/16) Past Qpggbal-Mgljor-Jefbmj Hx Patient Social History Tobacco Use?: No Smoking Status: Never a Smoker Smokeless Tobacco Frequency: Never a User Use of E-Cig and/or Vaping dev: No Use of E-Cig and/or Vaping Andrade: Never a User Substance use?: No Alcohol Use?: No Seasonal Allergies Seasonal Allergies: Yes Current Status status: No status: No Advance Directives: No Communicates: Does Not Communicate Primary Language: Sinhala Preferred Spoken Language: Sinhala Is interpretation needed?: No Implanted or Applied Medical D: None Past Medical History Surgeries: Orthopedic Currently Using CPAP: No Currently Using BIPAP: No Blood Disorders: No Mentally Handicapped, Ambiguous Genitalia Review of Systems ROS-Unable to Obtain: Obtained from Caregiver Constitutional: see HPI EENTM: no symptoms reported Respiratory: no symptoms reported Cardiovascular: no symptoms reported Gastrointestinal: loss of appetite Genitourinary: no symptoms reported Musculoskeletal: other (favoring left leg) Skin: no symptoms reported Psychiatric/Neurological: No Symptoms Reported Physical Exam Physical Exam Vital Signs Vital Signs - First Documented 06/16/21 06/16/21 06/16/21 06/17/21 14:00 17:42 19:21 08:00 Temp 36.0 Pulse 84 Resp 16 B/P (MAP) 109/71 (84) Pulse Ox 96 O2 Delivery Room Air O2 Flow Rate 1.00 FiO2 21 Capillary Refill : Less Than 3 Seconds Height, Weight, BMI Height: 5'0" Weight: 96lbs. oz. 43.541007ow; 15.00 BMI Method:Stated General Appearance: No Apparent Distress, WD/WN, Chronically ill HEENT: PERRL/EOMI, Pharynx Normal, Moist Mucous Membranes Neck: Normal Inspection Respiratory: Chest Non Tender, Lungs Clear, Normal Breath Sounds, No Accessory Muscle Use, No Respiratory Distress Cardiovascular: Regular Rate, Rhythm, No Gallop, No JVD, No Murmur, Normal Peripheral Pulses Gastrointestinal: Normal Bowel Sounds, No Organomegaly, Soft Rectal: Deferred Back: Normal Inspection Extremity: Normal Capillary Refill, Normal Inspection Neurologic/Psychiatric: Other (sleeping following anesthesia) Skin: Normal Color, Warm/Dry Results Results/Procedures Labs Laboratory Tests 06/16/21 14:28 06/17/21 08:45 Patient resulted labs reviewed. Imaging: Reviewed Imaging Report Assessment/Plan Admission Diagnosis Right Intertrochanteric Femur Fracture Admission Status: Observation Assessment and Plan Assessment: Right Intertrochanteric Femur Fracture Ambiguous Genitalia Mental Disability Anemia Plan: Surgery with Dr. Batista for Right Intertrochanteric Femur Fx on 06/17/[address] Gibson consult help with ziegler catheter and ambiguous genitalia Awaiting culture and sensitivity results from urine colleted during ziegler insertion Medical management Diagnosis/Problems Diagnosis/Problems (1) Closed right hip fracture Status: Acute (2) Ambiguous genitalia Status: Chronic (3) Mental disability Status: Chronic Clinical Quality Measures DVT/VTE Risk/Contraindication: Contraindications-Pharm: Other *list below* Other: OR DANNA LEE DO 06/18/21 0523: History of Present Illness HPI/Chief Complaint CC: right hip fracture HPI: 66 yr old WF intellectually delayed individual who lives in a half-way. She presented with a right hip fracture. She hadn't been eating or drinking for a few days. Labs revealed dehydration. She was assessed in the ER and found to have a right hip fracture due to favoring that leg and wouldn't walk like she usually does. She had an uneventful hip fracture repair by Dr. Batista. IV fluids maintained with good resolution of hypernatremia. Source: RN/MD Past Yvlpstw-Stdqtx-Nzqyuc Hx Patient Social History Marrital Status: single Employed/Student: unemployed Smoking Status: Never a Smoker Past Medical History Developmental Disorder Review of Systems Constitutional: see HPI Physical Exam Physical Exam General Appearance: No Apparent Distress, Chronically ill, Thin Respiratory: Lungs Clear, Normal Breath Sounds Cardiovascular: Regular Rate, Rhythm Neurologic/Psychiatric: Disoriented, Other (sleeping following anesthesia) Assessment/Plan Admission Diagnosis Assessment: Right hip fracture Developmental disability Hypernatremia Hermaphrodite Urinary retention BMI 15 Plan: Pain control Monitor labs IV fluids Admission Status: Inpatient Order (span 2 midnights) Reason for Inpatient Admission: Hip fracture Supervisory-Addendum Brief Verification & Attestation Participated in pt care: history, MDM, physical Personally performed: exam, history, MDM, supervision of care Care discussed with: Medical Student Procedures: n/a Results interpretation: Verified all documentation Verification and Attestation of Medical Student E/M Service A medical student performed and documented this service in my presence. I reviewed and verified all information documented by the medical student and made modifications to such information, when appropriate. I personally performed the physical exam and medical decision making. Danna Lee, Jun 18, 2021,05:21 PEDRO TEAGUE Jun 17, 2021 12:43 DANNA LEE DO Jun 18, 2021 05:23
--- NOTE | 2021-06-17 13:15 | Progress Note - Urology ---
Progress Note-Urology Progress Notes/Assess & Plan Progress/Assessment & Plan NO URINE FROM BARNES?IN VAGINA, REMOVED. PATIENT WETTED THE PAD LAST NIGHT. WE WILL OBSERVE POSTOP Final Diagnosis AMBIGUOUS GENITALIA DALILA ARCOS MD Jun 17, 2021 13:15
[2021-06-17] MEDS ORDERED: MELA3TAB39 PO (13:49)
[2021-06-17] MEDS ORDERED: FEXO-46 PO (13:49)
[2021-06-17] MEDS ORDERED: ACET325T38 PO (13:49)
[2021-06-17] MEDS ORDERED: VITA1TAB17 PO (13:49)
[2021-06-17] MEDS ORDERED: CALC1TAB99 PO (13:49)
[2021-06-17] MEDS ORDERED: DIVA125C10 PO ×2 (13:49)
[2021-06-17] MEDS ORDERED: CALC-140 PO (13:49)
[2021-06-17] MEDS ORDERED: NYST1POW22 MC (14:06)
[2021-06-17] MEDS ORDERED: DICL1TAB PO (14:06)
--- NOTE | 2021-06-17 14:20 | Physical Therapy Evaluation ---
PT Evaluation-General Medical Diagnosis Admission Date Jun 16, 2021 at 16:23 Medical Diagnosis: s/p R femur fracture Onset Date: Jun 16, 2021 Therapy Diagnosis Therapy Diagnosis: Weakness, debility, s/p R hip surgery Height/Weight Height (Feet): 5 Height (Inches): 0 Weight (Pounds): 96 Precautions Precautions/Isolations: Fall Prevention, Standard Precautions Weight Bear Status Right Lower Extremity: Right Weight Bearing/Tolerated Left Lower Extremity: Left Full Weight Bearing Referral Physician: Lester Reason for Referral: Evaluation/Treatment Medical History Additional Medical History Patient is mentally handicapped and non verbal. Current History Patient was not walking and caregiver brought her to the hospital and determined she had a broken hip. Patient is from [facility] of [facility] and has 24 hour care at this facility. Reviewed History: Yes Social History Home: Single Level Current Living Status: Entry Into Home: Level Entry Prior Prior Level of Function SCALE: Activities may be completed with or without assistive devices. 2-Yayuebqurv-qgzzssn completes the activity by him/herself with no assistance from a helper. 5-Set-up or Clean-up Assistance-helper sets up or cleans up; patient completes activity. [place] assists only prior to or following the activity. 4-Supervision or Touching Assistance-helper provides verbal cues and/or touching/steadying and/or contact guard assistance as patient completes activity. Assistance may be provided throughout the activity or intermittently. 3-Partial/Moderate Assistance-helper does LESS THAN HALF the effort. [place] lifts, holds or supports trunk or limbs, but provides less than half the effort. 2-Substantial/Maximal Assistance-helper does MORE THAN HALF the effort. [place] lifts or holds trunk or limbs and provides more than half the effort. 9-Fmvovywvk-eljlks does ALL the effort. Patient does none of the effort to complete the activity. Or, the assistance of 2 or more helpers is required for the patient to complete the activity. If activity was not attempted, code reason: 7-Patient Refused. 9-Not Applicable-not attempted and the patient did not perform the activity before the current illness, exacerbation or injury. 10-Not Attempted due to Environmental Limitations-(lack of equipment, weather restraints, etc.). 88-Not Attempted due to Medical Conditions or Safety Concerns. Bed Mobility: 6 Transfers (B,C,W/C): 6 Gait: 6 Indoor Mobility (Ambulation): Independent PT Evaluation-Current Subjective Patient presented laying in bed. Objective Patient Orientation: Person ROM/Strength ROM Lower Extremities WFL Strength Lower Extremities 3/5 strength bilateral grossly Integumentary/Posture Bowel Incontinence: Yes Bladder Incontinence: No Neuromuscular (Tone, Coordination, Reflexes) Coordination diminished due to recent surgery Sensory Vision: Functional Hearing: Functional Transfers Lying to Sitting/Side of Bed(Q: 1 Sit to Stand (QC): 1 Chair/Kfb-co-Efyci Xfer(QC): 1 Toilet Transfer (QC): 1 Patient required min assist x2 for sit to stand and transferring to a chair. Patient was dependent x1 to move from supine to EOB. Patient performed toilet transfer with min assist x2 for stability. Gait Does the Patient Walk?: Yes Mode of Locomotion: Walk Anticipated Mode of Locomotion: Walk Walk 10 feet (QC): 1 Distance: 15' x 2 Gait Assistive Device: Handheld Assist Comments/Gait Description Patient ambulated around her room with hand held assist x2 and min assist with gait belt. Patient completed ambulation with minimal signs of fatigue or discomfort. Patient stood looking out the window for 3 minutes with min assist x2. Balance Sitting Static: Normal Sitting Dynamic: Fair Standing Static: Fair Standing Dynamic: Poor Assessment/Needs Patient ambulated around her room and into the bathroom without sign of discomfort or pain. Patient required min assist x2 with a gait belt for stability and assistance while ambulating and performing transfers. Rehab Potential: Fair PT Prison Goals Prison Goals PT Prison Goals Time Frame: Jun 26, 2021 Roll Left & Right (QC): 3 Sit to Lying (QC): 3 Lying-Sitting on Side/Bed(QC): 3 Sit to Stand (QC): 3 Chair/Zly-sf-Skcdj Xfer(QC): 3 Toilet Transfer (QC): 3 Does the Patient Walk: Yes Walk 10 feet (QC): 3 Walk 50ft with 2 Turns (QC): 3 Walk 150 ft (QC): 3 PT Plan Problem List Problem List: Activity Tolerance, Functional Strength, Safety, Balance, Gait, Transfer, Bed Mobility, ROM Treatment/Plan Treatment Plan: Continue Plan of Care Treatment Plan: Bed Mobility, Education, Functional Activity Dayami, Functional Strength, Group Therapy, Gait, Safety, Therapeutic Exercise, Transfers Treatment Duration: Jun 26, 2021 Frequency: 6 times per week Estimated Hrs Per Day: .25 hour per day Safety Risks/Education Patient Education: Gait Training, Reviewed Precautions Teaching Recipient: Patient, Primary Caregiver Teaching Methods: Discussion Time/GCodes Time In: 1340 Time Out: 1400 Total Billed Treatment Time: 20 Total Billed Treatment 1 Visit EVMod 20 min CORINNA FERRER PT Jun 17, 2021 14:20
[2021-06-17] MEDS ORDERED: NS IV 1000 ML 1,000 ML IV SCH (19:45)
[2021-06-17] MEDS ORDERED: NS IV 1000 ML 1,000 ML ONE (19:47)
[2021-06-18] VITALS (7 sets, daily range): BP systolic 70–122; BP diastolic 43–64
[2021-06-18] MEDS: KETOROLAC 15 MG/ML VIAL IV SCH ×4 (00:18→18:11)
[2021-06-18] MEDS: NS (IVPB) 250 ML IV PRN ×2 (03:48→08:21)
[2021-06-18] MEDS: D5 1/2 NS W/KCL 20 MEQ/L 1,000 ML IV SCH ×3 (05:12→21:50)
[2021-06-18 06:04] LABS: BASOPHILS % (AUTO) 0 % (0-10); EOSINOPHILS % (AUTO) 0 % (0-10); HEMATOCRIT 23 % (35-52); HEMOGLOBIN 7.3 g/dL (11.5-16.0); LYMPHOCYTES # (AUTO) 1.2 10^3/uL (1.0-4.0); LYMPHOCYTES % (AUTO) 13 % (12-44); MEAN CORPUSCULAR HEMOGLOBIN 32 pg (25-34); MEAN CORPUSCULAR HGB CONC 32 g/dL (32-36); MEAN CORPUSCULAR VOLUME 99 fL (80-99); MEAN PLATELET VOLUME 11.5 fL (9.0-12.2); MONOCYTES # (AUTO) 0.5 10^3/uL (0.0-1.0); MONOCYTES % (AUTO) 5 % (0-12); NEUTROPHILS # (AUTO) 7.3 10^3/uL (1.8-7.8); NEUTROPHILS % (AUTO) 81 % (42-75); PLATELET COUNT 219 10^3/uL (130-400); WHITE BLOOD COUNT 9.1 10^3/uL (4.3-11.0)
[2021-06-18 06:14] LABS: ALBUMIN 2.6 GM/DL (3.2-4.5)
[2021-06-18 06:15] LABS: POTASSIUM 5.1 MMOL/L (3.6-5.0)
[2021-06-18 06:16] LABS: CALCIUM 7.7 MG/DL (8.5-10.1)
[2021-06-18 06:17] LABS: TOTAL PROTEIN 5.2 GM/DL (6.4-8.2)
[2021-06-18 06:19] LABS: BILIRUBIN,TOTAL 0.3 MG/DL (0.1-1.0)
[2021-06-18 06:21] LABS: CREATININE SERUM 1.06 MG/DL (0.60-1.30)
--- NOTE | 2021-06-18 09:47 | Progress Note - Urology ---
Progress Note-Urology Progress Notes/Assess & Plan Progress/Assessment & Plan BARNES DRAINING WELL. URINE CLEAR. SEE PRN Final Diagnosis AMBIGUOUS GENITALIA DALILA ARCOS MD Jun 18, 2021 09:47
--- NOTE | 2021-06-18 09:47 | Progress Note - Ortho ---
Progress Note Subjective Date of Exam 06/18/21 Chief Complaint POD #1 R IT Femur Fx s/p IM nailing HPI/Events since last exam up with therapy after surgery yesterday and did well, pain has appeared to be controlled, guardian in room assisting with her care Review of Systems - Allergies: Coded Allergies: No Known Drug Allergies (Unverified , 10/26/16) Home Meds Reported Medications Nystatin (Nystatin) 1 Each Powder.ea., 1 EACH MC BID PRN for RASH, UNIT 06/17/21 Diclofenac Sodium/Misoprostol (Diclofenac-Misoprost 50-0.2 Tb) 1 Each Tab.ir.dr, 1 EACH PO BID PRN for PAIN/INFLAMMATION 06/17/21 Fexofenadine HCl (Fexofenadine HCl) 180 Mg Tablet, 180 MG PO HS, TAB 06/17/21 Acetaminophen (Tylenol) 325 Mg Tablet, 650 MG PO Q4H PRN for PAIN-MILD (1-4), TAB 06/17/21 Melatonin (Melatonin) 3 Mg Tablet, 3 MG PO HS, TAB 06/17/21 Calcium Carbonate/Vitamin D3 (Oyster Shell Calcium-Vit D Tab) 1 Each Tablet, 1 EA PO BID, TAB 06/17/21 Divalproex Sodium (Divalproex Sodium) 125 Mg Cap.sprink, 250 MG PO 0800,1700, CAP 06/17/21 Vitamin B Complex (Vitamin B Complex) 1 Each Tablet, 1 EACH PO DAILY, TAB 06/17/21 Divalproex Sodium (Divalproex Sodium) 125 Mg Cap.sprink, 125 MG PO HS, CAP TAKES WITH FOOD 06/17/21 Cetirizine HCl (Cetirizine HCl) 10 Mg Tablet, 10 MG PO 1700, TAB 10/26/16 Discontinued Reported Medications Calcium Carbonate/Vitamin D3 (Calcium + Vitamin D Tablet) 1 Each Tablet, 1 EACH PO BID, TAB 06/17/21 Vit B Comp/C/FA/Iron/Vit E (Vitamin B Complex Tablet) 1 Each Tablet, 1 EACH PO, TAB 10/26/16 Divalproex Sodium (Depakote) 500 Mg Tablet.dr, PO, TAB 10/26/16 Discontinued Scripts Hydrocodone/Acetaminophen (Hydrocodone/Acetaminophen 5 MG/325 MG TAB) 1 Each Tablet, 1 EACH PO Q4H PRN for PAIN-SEVERE, #10 TAB Prov:SRINIVAS LEONARD STRAIGHT CUTTER 10/26/16 Objective Exam R Hip: Dressing C/D/I, +DF of ankle, no s/s of DVT Vital Signs Vital Signs Date Time Temp Pulse Resp B/P (MAP) Pulse Ox O2 Delivery O2 Flow Rate FiO2 06/18/21 09:24 92 Room Air 0.00 06/18/21 08:00 36.1 68 16 89/50 (63) 92 Room Air 06/18/21 04:12 36.9 71 18 106/56 (73) 96 06/18/21 00:02 36.7 77 18 100/64 (76) 91 06/17/21 20:50 97/59 (72) 06/17/21 19:50 Room Air 06/17/21 19:44 80 89/52 (64) 06/17/21 19:14 36.0 103 16 79/51 (60) 92 Room Air 06/17/21 18:19 Room Air 06/17/21 15:46 35.6 98 16 91/61 (71) 98 Room Air 06/17/21 12:00 96 Room Air 06/17/21 11:54 35.3 81 16 96/53 (67) 98 Nasal Cannula 1.00 06/17/21 10:30 96 Room Air 06/17/21 09:50 Room Air I & O 06/18/21 07:00 Intake Total 4460 ml Output Total 250 ml Balance 4210 ml Lab Results Laboratory Tests 06/18/21 05:43: White Blood Count 9.1, Red Blood Count 2.31L, Hemoglobin 7.3L, Hematocrit 23L, Mean Corpuscular Volume 99, Mean Corpuscular Hemoglobin 32, Mean Corpuscular Hemoglobin Concent 32, Red Cell Distribution Width 16.1H, Platelet Count 219, Mean Platelet Volume 11.5, Immature Granulocyte % (Auto) 0, Neutrophils (%) (Auto) 81H, Lymphocytes (%) (Auto) 13, Monocytes (%) (Auto) 5, Eosinophils (%) (Auto) 0, Basophils (%) (Auto) 0, Neutrophils # (Auto) 7.3, Lymphocytes # (Auto) 1.2, Monocytes # (Auto) 0.5, Eosinophils # (Auto) 0.0, Basophils # (Auto) 0.0, Immature Granulocyte # (Auto) 0.0, Sodium Level 142, Potassium Level 5.1H, Chloride Level 114H, Carbon Dioxide Level 20L, Anion Gap 8, Blood Urea Nitrogen 44H, Creatinine 1.06, Estimat Glomerular Filtration Rate 59, BUN/Creatinine Ratio 42, Glucose Level 115H, Calcium Level 7.7L, Corrected Calcium 8.8, Total Bilirubin 0.3, Aspartate Amino Transf (AST/SGOT) 138H, Alanine Aminotransferase (ALT/SGPT) 157H, Alkaline Phosphatase 129, Total Protein 5.2L, Albumin 2.6L Microbiology 06/16/21 MRSA Screen - Final, Complete MRSA not isolated 06/16/21 Urine Culture - Final, Complete NO GROWTH Assessment and Plan Assessment Right Intertrochanteric Femur Fracture s/p Intramedullary Nailing Problem List Right Intertrochanteric Femur Fracture s/p Intramedullary Nailing Plan Continue therapy efforts DVT prophylaxis Return to assisted living when ready Final Diagonsis Right Intertrochanteric Femur Fracture s/p Intramedullary Nailing Level of the visit: Level 3 (postop global) Focused Exam Lactate Level 06/16/21 15:00: Lactic Acid Level 1.35 Clinical Quality Measures DVT/VTE Risk/Contraindication: Contraindications-Pharm: Other *list below* Other: OR KASSIDY STARR MD Jun 18, 2021 09:47
--- NOTE | 2021-06-18 10:02 | Anesthesia-General Post-Op ---
General Patient Condition Mental Status/LOC: Same as Preop Cardiovascular: Satisfactory Nausea/Vomiting: Absent Respiratory: Satisfactory Pain: Controlled Complications: Absent Post Op Complications Complications None Follow Up Care/Instructions Patient Instructions None needed. Anesthesia/Patient Condition Patient Condition Patient is doing well, no complaints, stable vital signs, no apparent adverse anesthesia problems. No complications reported per nursing. SOULEYMANE HERNANDEZ CRNA Jun 18, 2021 10:02
--- NOTE | 2021-06-18 10:16 | Occupational Therapy Eval ---
OT Evaluation-General/PLF Medical Diagnosis Admission Date Jun 16, 2021 at 16:23 Medical Diagnosis: s/p R femur fracture Onset Date: Jun 16, 2021 Therapy Diagnosis Therapy Diagnosis: decreased ADL status Height/Weight Height (Feet): 5 Height (Inches): 0 Weight (Pounds): 96 Precautions Precautions/Isolations: Fall Prevention, Standard Precautions, Pressure Ulcer Referral Physician: Ottoniel Referral Reason: Evaluation/Treatment Medical History Additional Medical History mental disability Current History ED due to lack of activity, found to have R hip fx, s/p IM nail 06/17/21 Social History Home: Single Level Current Living Status: caregivers Entry Into Home: Level Entry ADL-Prior Level of Function SCALE: Activities may be completed with or without assistive devices. 3-Auoicblwvp-rrbvbev completes the activity by him/herself with no assistance from a helper. 5-Set-up or Clean-up Assistance-helper sets up or cleans up; patient completes activity. [place] assists only prior to or following the activity. 4-Supervision or Touching Assistance-helper provides verbal cues and/or touching/steadying and/or contact guard assistance as patient completes activity. Assistance may be provided throughout the activity or intermittently. 3-Partial/Moderate Assistance-helper does LESS THAN HALF the effort. [place] lifts, holds or supports trunk or limbs, but provides less than half the effort. 2-Substantial/Maximal Assistance-helper does MORE THAN HALF the effort. [place] lifts or holds trunk or limbs and provides more than half the effort. 0-Uanvfnneb-nrnjrl does ALL the effort. Patient does none of the effort to complete the activity. Or, the assistance of 2 or more helpers is required for the patient to complete the activity. If activity was not attempted, code reason: 7-Patient Refused. 9-Not Applicable-not attempted and the patient did not perform the activity before the current illness, exacerbation or injury. 10-Not Attempted due to Environmental Limitations-(lack of equipment, weather restraints, etc.). 88-Not Attempted due to Medical Conditions or Safety Concerns. ADL PLOF Comments Pt unable to provide information about PLOF, per chart review, pt has 24 hour caregiver assistance. Level of assistance required with ADLs is unknown at this time. Self Care: Needed Some Help Functional Cognition: Needed Some Help OT Current Status Subjective Pt in bed, pulling covers up over her eyes. OT closed the blind and shut off the lights, then pt stopped pulling covers over her face. Pt nonverbal and unable to follow instructions throughout session. Mental Status/Objective Patient Orientation: Non-Verbal/Aphasic ADL-Treatment Eating (QC): 2 (Per nursing report, pt requires feeding assistance.) Oral Hygiene (QC): 1 (Per clincial judgment) Shower/Bathe Self (QC): 1 (Per clincial judgment) Upper Body Dressing (QC): 1 (Per clincial judgment) Lower Body Dressing (QC): 1 (Per clincial judgment) On/Off Footwear (QC): 1 (Per clincial judgment) Toileting Hygiene (QC): 1 (Per clincial judgment) Other Treatments Pt in bed, pulling covers over her eyes. OT turned off lights and shut blinds. Pt is nonverbal throughout session, no family/caregivers present to provide information about PLOF. OT placed hair brush near pt, she did not attempt to grasp brush. OT attempted to place brush in pt's grasp but unable. OT dependently brushed pt's hair. OT then applied a warm washcloth to pt's face in order to wash, pt kept turning her head away from the wash cloth. Per clinical judgment, pt would require total assistance with all ADLs. Pt currently has 24 hour caregiver assistance per chart review. Post tx, pt in bed, call light in reach and all needs met. Education OT Patient Education: Correct positioning, Modified ADL techniques, Progress toward Goal/Update tx plan, Purpose of tx/functional activities, Rehab process Teaching Recipient: Patient Response to Teaching: Unable to Return Demonstration, Unable to Comprehend OT Mechanical Design Engineer Goals Mechanical Design Engineer Goals 1=Demonstrate adherence to instructed precautions during ADL tasks. 2=Patient will verbalize/demonstrate understanding of assistive devices/modifications for ADL. 3=Patient will improve strength/tolerance for activity to enable patient to per form ADL's. OT Education/Plan Problem List/Assessment Assessment: No Skilled OT Needs ID'd No skilled OT services indicated at this time as pt is currently dependent with ADLs and has 24 hour caregiver assistance at baseline. If further OT services are needed, send new OT orders and another evaluation will be complete. Discharge Recommendations Plan/Recommendations: Discharge/Goals Met Treatment Plan/Plan of Care Patient would benefit from OT for education, treatment and training to promote independence in ADL's, mobility, safety and/or upper extremity function for ADL's. Plan of Care: ADL Retraining Treatment Duration: Jun 18, 2021 Frequency: 1 time per week (eval only) Rehab Potential: Guarded Time/GCodes Start Time: 09:48 Stop Time: 09:56 Total Time Billed (hr/min): 8 Billed Treatment Time 1, WICHO FREDERICK OT Jun 18, 2021 10:15
[2021-06-18] MEDS: SENNOSIDES 8.6 MG (SENOKOT) TAB PO SCH ×2 (10:24→21:19)
[2021-06-18] MEDS: DOCUSATE SODIUM 100 MG (COLACE) CAP PO SCH ×2 (10:24→21:19)
[2021-06-18] MEDS ORDERED: VANCOMYCIN INJECTION 1,000 MG in NS (IVPB) 250 ML IV SCH (10:30)
[2021-06-18] MEDS ORDERED: VANCOMYCIN 1 GM/NS 250 ML IVPB IV NR ×2 (11:15)
--- NOTE | 2021-06-18 11:54 | Physical Therapy Daily Note ---
PT Daily Note-Current Subjective Patient presented in bed. Mental Status Patient Orientation: Non-Verbal/Aphasic Attachments: [place] Catheter, IV Transfers SCALE: Activities may be completed with or without assistive devices. 1-Ecoozxfoou-rvwuwcn completes the activity by him/herself with no assistance from a helper. 5-Set-up or Clean-up Assistance-helper sets up or cleans up; patient completes activity. [place] assists only prior to or following the activity. 4-Supervision or Touching Assistance-helper provides verbal cues and/or touching/steadying and/or contact guard assistance as patient completes activity. Assistance may be provided throughout the activity or intermittently. 3-Partial/Moderate Assistance-helper does LESS THAN HALF the effort. [place] lifts, holds or supports trunk or limbs, but provides less than half the effort. 2-Substantial/Maximal Assistance-helper does MORE THAN HALF the effort. [place] lifts or holds trunk or limbs and provides more than half the effort. 9-Thqafyqjk-jmlnol does ALL the effort. Patient does none of the effort to complete the activity. Or, the assistance of 2 or more helpers is required for the patient to complete the activity. If activity was not attempted, code reason: 7-Patient Refused. 9-Not Applicable-not attempted and the patient did not perform the activity before the current illness, exacerbation or injury. 10-Not Attempted due to Environmental Limitations-(lack of equipment, weather restraints, etc.). 88-Not Attempted due to Medical Conditions or Safety Concerns. Lying to Sitting/Side of Bed(Q: 1 Sit to Stand (QC): 1 Chair/Otg-ka-Fhkgq Xfer(QC): 1 Patient was mod assist x2 for all transfers with hand held assist. Weight Bearing Right Lower Extremity: Right Weight Bearing/Tolerated Left Lower Extremity: Left Full Weight Bearing Gait Training Does the Patient Walk?: Yes Distance: 75' Walk 10 feet (QC): 1 Walk 50 ft with 2 Turns(QC): 1 Patient ambulated with mod assist x2 and hand held assist for 75'. Patient is unable to use a FWW due to cognition level but is able to ambulate with hand held assist. Treatments Standing endurance Ambulation Assessment Patient ambulated and performed standing endurance during therapy session. Patient cognition level does not allow her to use a walker but the patient is able to follow commands and ambulate with hand held assist. PT Process Mechanic Goals Senior Living Goals PT Process Mechanic Goals Time Frame: Jun 26, 2021 Roll Left & Right (QC): 3 Sit to Lying (QC): 3 Lying-Sitting on Side/Bed(QC): 3 Sit to Stand (QC): 3 Chair/Jbj-rg-Zvvvx Xfer(QC): 3 Toilet Transfer (QC): 3 Does the Patient Walk: Yes Walk 10 feet (QC): 3 Walk 50ft with 2 Turns (QC): 3 Walk 150 ft (QC): 3 PT Plan Problem List Problem List: Activity Tolerance, Functional Strength, Safety, Balance, Gait, Transfer, Bed Mobility, ROM Treatment/Plan Treatment Plan: Continue Plan of Care Treatment Plan: Bed Mobility, Education, Functional Activity Dayami, Functional Strength, Group Therapy, Gait, Safety, Therapeutic Exercise, Transfers Treatment Duration: Jun 26, 2021 Frequency: 6 times per week Estimated Hrs Per Day: .25 hour per day Safety Risks/Education Patient Education: Gait Training Teaching Recipient: Patient Teaching Methods: Discussion Time/GCodes Time In: 1124 Time Out: 1140 Total Billed Treatment Time: 17 Total Billed Treatment 1 visit FA 16 min CORINNA FERRER PT Jun 18, 2021 11:54
--- NOTE | 2021-06-18 12:24 | Diagnostic Imaging Report ---
INDICATION: Sepsis. TIME OF EXAM: 12:00 p.m. Comparison is made with prior chest from 06/16/2021. FINDINGS: Heart size is stable. Patient has developed some infiltrate in both lung bases as well as left perihilar region. Left hemidiaphragm is mildly elevated. There is no effusion. No pneumothorax is identified. IMPRESSION: Developing bilateral infiltrates when compared with exam from 2 days earlier. Dictated by: Dictated on workstation # [id number]
--- NOTE | 2021-06-18 12:34 | Progress Note - Hospitalist ---
PEDRO TEAGUE 06/18/21 1234: Subjective HPI/CC On Admission Date Seen by Provider: Jun 18, 2021 Time Seen by Provider: 09:30 CC: right hip fracture HPI: 66 yr old WF intellectually delayed individual who lives in a custodial. She presented with a right hip fracture. She hadn't been eating or drinking for a few days. Labs revealed dehydration. She was assessed in the ER and found to have a right hip fracture due to favoring that leg and wouldn't walk like she usually does. She had an uneventful hip fracture repair by Dr. Batista. IV fluids maintained with good resolution of hypernatremia. Subjective/Events-last exam Patient eating in bed with caregiver at bedside this AM. Caregiver states that she is being "more herself" today. She has no other complaints. Patient's blood cultures resulted last night as positive; will evaluate for source and address. ROS unable to obtain Focused Exam Sepsis Stage: Sepsis Possible Source: Bone/Joint Lactate Level 06/16/21 15:00: Lactic Acid Level 1.35 06/18/21 10:42: Lactic Acid Level 2.27*H Respiratory: Chest Non Tender, Lungs Clear, Normal Breath Sounds, No Accessory Muscle Use, No Respiratory Distress Cardiovascular: Regular Rate, Rhythm, No Edema, No Gallop, No JVD, No Murmur, Normal Peripheral Pulses Capillary Refill: Less Than 3 Seconds Skin: normal color, warm/dry Lactic Acid Level Laboratory Tests Test 06/18/21 10:42 Lactic Acid Level 2.27 MMOL/L (0.50-2.00) *H Objective Exam Vital Signs Vital Signs Date Time Temp Pulse Resp B/P (MAP) Pulse Ox O2 Delivery O2 Flow Rate FiO2 06/18/21 09:24 92 Room Air 0.00 06/18/21 08:00 36.1 68 16 89/50 (63) 06/16/21 19:21 21 Capillary Refill : Less Than 3 Seconds General Appearance: No Apparent Distress, WD/WN HEENT: PERRL/EOMI, Pharynx Normal, Moist Mucous Membranes Neck: Full Range of Motion, Normal Inspection, Non Tender, Supple Respiratory: Chest Non Tender, Lungs Clear, Normal Breath Sounds, No Accessory Muscle Use, No Respiratory Distress Cardiovascular: Regular Rate, Rhythm, No Edema, No Gallop, No JVD, No Murmur, Normal Peripheral Pulses Gastrointestinal: Normal Bowel Sounds, Non Tender, Distended (chronic); No Guarding, No Rebound Rectal: Deferred Back: Normal Inspection Extremity: Normal Capillary Refill, Normal Inspection, Normal Range of Motion Neurologic/Psychiatric: Alert, No Motor/Sensory Deficits, Normal Mood/Affect (according to caregiver), millwright helper II-XII Norm as Tested, Other (non-verbal) Skin: Normal Color, Warm/Dry Results/Procedures Lab Laboratory Tests 06/18/21 05:43 Patient resulted labs reviewed. Imaging: Reviewed Imaging Report Assessment/Plan Assessment and Plan Assess & Plan/Chief Complaint Assessment: Right Intertrochanteric Femur Fracture s/p Surgical Fixation on 06/17/21 Ambiguous Genitalia Mental Disability Sepsis Difficulty Swallowing Urinary Retention Hypotension Anemia Plan: Completed Surgery with Dr. Batista for Right Intertrochanteric Femur Fx on 06/17/21 Pain regimen Bowel regimen PT/OT Appreciate Dr. Gibson consult help with ziegler catheter and ambiguous genitalia; order for straight cath placed if necessary Blood Cultures (06/16/21): Coagulase Negative Staphylococcus CXR, Lactic Acid, Procalcitonin Empiric Antibiotics: Vancomycin and Cefepime Continue IVF for hypotension Bedside swallow study Diagnosis/Problems Diagnosis/Problems (1) Closed right hip fracture Status: Acute (2) Sepsis Status: Acute Qualifiers: Qualified Codes: A41.9 - Sepsis, unspecified organism (3) Ambiguous genitalia Status: Chronic (4) Hypotension Status: Chronic (5) Urinary retention Status: Chronic (6) Dysphagia Status: Acute (7) Anemia Status: Chronic (8) Mental disability Status: Chronic Clinical Quality Measures DVT/VTE Risk/Contraindication: Contraindications-Pharm: Other *list below* Other: OR DANNA LEE DO 06/19/21 0548: Subjective Subjective/Events-last exam Patient now stable Urinary catheter in place Patient will have slow recovery IV fluids continue Baseline systolic blood pressure is 80 per vehicle body sander Blood cultures positive we will add vancomycin and I will add gram-negative coverage for UA that is abnormal No evidence of sepsis but hypotension continues Review of Systems Musculoskeletal: leg pain Neurological: Confusion Objective Exam General Appearance: No Apparent Distress, WD/WN, Chronically ill Respiratory: Lungs Clear, Normal Breath Sounds Cardiovascular: Regular Rate, Rhythm Assessment/Plan Assessment and Plan Assess & Plan/Chief Complaint Hypotension without evidence of sepsis Bacteremia? Blood cultures positive so we will add vancomycin empirically Abnormal UA placed on antibiotics empirically Supportive care Supervisory-Addendum Brief Verification & Attestation Participated in pt care: history, MDM, physical Personally performed: exam, history, MDM, supervision of care Care discussed with: Medical Student Procedures: n/a Results interpretation: Verified all documentation Verification and Attestation of Medical Student E/M Service A medical student performed and documented this service in my presence. I reviewed and verified all information documented by the medical student and made modifications to such information, when appropriate. I personally performed the physical exam and medical decision making. Danna Lee, Jun 19, 2021,05:48 PEDRO TEAGUE Jun 18, 2021 12:34 DANNA LEE DO Jun 19, 2021 05:48
[2021-06-18] MEDS: IRON SUCROSE 200 MG/10 ML (VENOFER) VIAL IV SCH (13:02)
[2021-06-18] MEDS: CEFEPIME INJECTION 1,000 MG in NS (IVPB) 50 ML IV SCH (13:02)
--- NOTE | 2021-06-18 14:21 | ST Dysphagia Evaluation ---
Speech Evaluation-General Medical Diagnosis s/p R Femur Fracture Onset Date: Jun 16, 2021 Therapy Diagnosis Therapy Diagnosis: Moderate to Severe Oropharyngeal Dysphagia Precautions Precautions: Fall, Aspiration Precautions/Isolations: Standard Precautions Referral Referring Physician: Dr. Danna Alcazar Reason for Referral: Evaluation/Treatment Medical History Current History The patient is a 66 year-old female with a past medical history of mental disability and ambiguous genitalia, who presented to [facility] wit decreased activity and reduced oral intake. Upon evaluation in the ED, the patient was found to be dehydrated and have an incidental right intertrochanteric femur fracture which received surgical fixation on 06/17/21. 06/18/21: CXR: Developing bilateral infiltrates when compared with exam from 2 days earlier. Reviewed History: Yes Social History Current Living Status: caregivers Speech PLF/Current-Dysphagia Prior Level of Function The patient's prior PO consistency is unknown to this clinician. Following a discussion with additional therapists, the patient's caregiver stated she is receiving a regular diet with thin liquids at home. Additionally, the patient's caregiver stated the patient's method and strategies of PO intake (large, consecutive cup edge drinks) are consistent with her behavior at home. The clinician does not have additional information regarding concerning suspicion of aspiration per chart documentation. Subjective The patient is seated upright in her recliner, with her blanket over her head upon entrance to the room. The blanket is removed and the clinician provided AIDET information. The patient does not verbalize a greeting, return the clinician's greeting, or make eye contact during communication attempts by the clinician. The patient has thin liquids at bedside. At this time, the patient is receiving full feeding assistance. The project inspector discussed the patient with the clinician briefly, stating physical therapy had noted "coughing with thin liquids" during their treatment session. Due to the s/s of suspected aspiration, the consult to speech pathology was generated for a full clinical bedside swallowing evaluation. Cognitive Status Patient Orientation: Unable to Assess, Non-Verbal/Aphasic The patient does not respond to orientation questions asked by the clinician. The patient does not make eye contact when her name is spoken. Oral Motor Skills Dentition: Edentalous Current Food Consistancy: Pureed, Thin Liquids Ability to Follow Directions: Unable Oral Expression Ability: Severe Impairment Face Facial Symmetry: Asymmetrical Oral-Facial Assessment Oral-Facial Dentition: Lateral Displacement Labial Seal Description: Reduced ROM, Weak, Poor Coordination Volitional Dry Swallow: No Voluntary Cough: No Can Clear Throat Volitionally: No Productive Cough: Yes Productive Throat Clear: Yes Dysphagia Evaluation Consistencies Presented: Thin Liquid, [place] Thick Liquid, Honey Thick Liquid, Pureed Oral Phase: Anterior Spillage, Oral Residue, Unable to Form Bolus, Unable to Suck Straw, Reduced Oral Transit Pharyngeal Phase: Decreased A/P Bolus Transit, Multiple Swallow Attempts, Delayed Laryngeal Elevation, Delayed Swallow Funct. Velo/Pharyngeal Symptom: Clears Throat, Cough After Swallow, Wet Voice Dietary Recommendations: Pureed Liquid Recommendations: Honey Consistancy Recommendations: - Dysphagia one (pureed) with moderately thick (honey-thick) liquids, as tolerated. - Fully upright and alert for PO intake. - Small, single bites and sips (only). - Edge of cup, only (the patient is unable to draw material through a straw). - Full, 1:1 feeding supervision and assistance. - Frequent oral care to reduce the transfer of oral bacteria to the lungs should aspiration of secretions occur. - Crush medication and place in puree for administration. - Monitor for s/s of suspected aspiration with PO intake. If demonstrated, place the patient NPO and contact the physician. - Speech pathology to reassess diet tolerance three times per week or as appropriate. The patient remains at an elevated risk for aspiration with PO intake of any kind secondary to the patient's severely reduced oral coordination and bolus control. If concerns of aspiration continue, s/s of suspected aspiration are demonstrated with the modified diet consistency recommendation, or the patient's chest exam worsen, the clinician highly recommends placing the patient NPO and considering an alternative source for nutrition, hydration and medication. The recommendations were shared with the RN following completion of the session. Swallowing Precautions: No Straw, Oral Supervision Staff, Small Bites and Sips, Sitting 90 Degrees 30 Post Intake Dysphagia Evaluation Summary The patient displayed moderate to severe oropharyngeal dysphagia (oral>pharyngeal) characterized by decreased labial, lingual, and oral coordination, reduced bolus control, decreased anterior to posterior transfer of the bolus in the oral cavity, and delayed onset of the pharyngeal swallow. The patient was provided teaspoons of thin liquid, teaspoons of nectar-thick liquid, cup edge drinks of nectar-thick liquid, teaspoons of honey-thick liquid, cup edge drinks of honey-thick liquid, and puree. Straw drinks were attempted, however, the patient was unable to draw the material through the utensil. Severely impaired oral bolus coordination was noted with all consistencies tested, as bolus material was visualized to display anterior spillage bilaterally and lingual thrusting was appreciated. Anterior to posterior transfer of the material displayed decreased coordination and multiple pharyng eal swallow attempts were demonstrated. The patient demonstrated an immediate, rigorous cough and a wet vocal quality following thin liquid attempts. Delayed, rigorous coughing was experienced following nectar-thick liquid attempts. Overt s/s of suspected aspiration were not demonstrated with four ounces of puree, five teaspoons of honey-thick liquid, or five cup edge drinks of honey-thick liquid. While overt s/s of suspected aspiration were not displayed with honey-thick liquid or puree, the patient remains at an elevated risk for aspiration with all PO consistencies secondary to the poorly coordinated oral phase. Speech Short Term Goals Short Term Goals Short Term Goals 1. The patient and staff will display 90% accuracy with safe swallowing strategies, independently. Speech Dust Control Engineer Goals Nursing Home Goals 1. The patient will tolerate the least restrictive diet consistency without the presence of s/s of suspected aspiration with 90% accuracy. Speech-Plan Treatment Plan Speech Therapy Treatment Plan: Continue Plan of Care Frequency: 3 times per week Estimated Hrs Per Day: .25 hour per day Rehab Potential: Poor Safety Risks/Education Teaching Recipient: Patient Teaching Methods: Discussion Response to Teaching: Unable to Comprehend Education Topics Provided: Plan of Care, Results, Safe Swallowing Recommendations Time Speech Therapy Time In: 13:45 Speech Therapy Time Out: 14:10 Total Billed Time: 25 Billed Treatment Time KATIE Rosas MK [facility] 14:21
[2021-06-19] VITALS: BP 91/55
[2021-06-19] MEDS: CEFEPIME INJECTION 1,000 MG in NS (IVPB) 50 ML IV SCH ×3 (00:26→19:53)
[2021-06-19] MEDS: KETOROLAC 15 MG/ML VIAL IV SCH ×5 (00:26→23:31)
[2021-06-19 04:00] VITALS: BP 93/51
[2021-06-19] MEDS ORDERED: SCOPOLAMINE 1.5 MG (TRANSDERM-SCOP) PATCH TD ONE (06:30)
[2021-06-19 06:38] LABS: BASOPHILS # (AUTO) 0.1 10^3/uL (0.0-0.1); BASOPHILS % (AUTO) 1 % (0-10); EOSINOPHILS # (AUTO) 0.2 10^3/uL (0.0-0.3); EOSINOPHILS % (AUTO) 2 % (0-10); HEMATOCRIT 28 % (35-52); HEMOGLOBIN 8.6 g/dL (11.5-16.0); LYMPHOCYTES # (AUTO) 1.4 10^3/uL (1.0-4.0); LYMPHOCYTES % (AUTO) 15 % (12-44); MEAN CORPUSCULAR HEMOGLOBIN 31 pg (25-34); MEAN CORPUSCULAR HGB CONC 31 g/dL (32-36); MEAN CORPUSCULAR VOLUME 100 fL (80-99); MEAN PLATELET VOLUME 11.2 fL (9.0-12.2); MONOCYTES # (AUTO) 0.2 10^3/uL (0.0-1.0); MONOCYTES % (AUTO) 3 % (0-12); NEUTROPHILS # (AUTO) 7.1 10^3/uL (1.8-7.8); NEUTROPHILS % (AUTO) 76 % (42-75); PLATELET COUNT 292 10^3/uL (130-400); WHITE BLOOD COUNT 9.4 10^3/uL (4.3-11.0)
[2021-06-19 06:41] LABS: ABG BASE EXCESS -4.3 MMOL/L (-2.5-2.5); ABG OXYGEN SATURATION 91 % (94-100); ABG PCO2 40 MMHG (35-45); ABG PO2 65 MMHG (79-93); ABG TCO2 22.1 MMOL/L (21.0-31.0)
[2021-06-19 06:42] LABS: ALLENS TEST YES-POS; INSPIRED O2 7L OXYMASK; VENTILATOR NO
--- NOTE | 2021-06-19 06:42 | Progress Note - Hospitalist ---
Subjective HPI/CC On Admission Date Seen by Provider: Jun 19, 2021 Time Seen by Provider: 10:00 CC: right hip fracture HPI: 66 yr old WF intellectually delayed individual who lives in a senior living. She presented with a right hip fracture. She hadn't been eating or drinking for a few days. Labs revealed dehydration. She was assessed in the ER and found to have a right hip fracture due to favoring that leg and wouldn't walk like she usually does. She had an uneventful hip fracture repair by Dr. Batista. IV fluids maintained with good resolution of hypernatremia. Subjective/Events-last exam Patient becoming more complex Overall very frail status and developmentally challenged gives rise to poor p rognosis She could have aspirated early this morning when she had her hand in her mouth likely to clear secretions so we have started suctioning and removed a lot of fluid. Labs reviewed Blood pressure normally runs 80 systolic per barge loader IV was restarted in the left upper arm Antibiotics maintained Review of Systems General: Fatigue, Malaise Focused Exam Lactate Level 06/18/21 12:47: Lactic Acid Level 2.31*H 06/19/21 06:20: Lactic Acid Level 2.33*H 06/19/21 08:40: Lactic Acid Level 1.38 Lactic Acid Level Objective Exam Vital Signs Vital Signs Date Time Temp Pulse Resp B/P (MAP) Pulse Ox O2 Delivery O2 Flow Rate FiO2 06/20/21 04:00 37.2 76 19 92/59 (70) 97 Nasal Cannula 4.00 06/16/21 19:21 21 Capillary Refill : Less Than 3 Seconds General Appearance: WD/WN, Anxious, Chronically ill, Mild Distress Respiratory: No Accessory Muscle Use, No Respiratory Distress, Decreased Breath Sounds Cardiovascular: Regular Rate, Rhythm Neurologic/Psychiatric: Alert Results/Procedures Lab Laboratory Tests 06/19/21 06:20 Patient resulted labs reviewed. Imaging: Reviewed Imaging Report Assessment/Plan Assessment and Plan Assess & Plan/Chief Complaint Assessment: Right Intertrochanteric Femur Fracture s/p Surgical Fixation on 06/17/21 Ambiguous Genitalia Mental Disability Sepsis Difficulty Swallowing Urinary Retention Hypotension Anemia Staph bacteremia? Placed on vancomycin UTI? Placed on gram-negative coverage Hypotension without evidence of sepsis usual systolic blood pressure 80 per barge loader Plan: Continue antibiotics Nebulizer treatments Chest x-ray worse likely fluid but blood pressure too low to diurese Supportive care Clinical Quality Measures DVT/VTE Risk/Contraindication: Contraindications-Pharm: Other *list below* Other: OR WILMAN LEE DO Jun 19, 2021 06:42
[2021-06-19 06:43] LABS: ABG PH 7.33 (7.37-7.43); PATIENT TEMP 36.1
--- NOTE | 2021-06-19 06:43 | Diagnostic Imaging Report ---
INDICATION: Hypoxia COMPARISON: 06/18/2021 TECHNIQUE: Single frontal radiography of the chest dated 06/19/2019 FINDINGS: The cardiac silhouette is within normal limits in size. Worsening bilateral perihilar interstitial infiltrate is again noted. Round density is seen overlying the peripheral left lung base. The left hemidiaphragm is no longer elevated on this examination. No significant pleural effusion. No pneumothorax. No acute osseous abnormality. IMPRESSION: Slightly worsening bilateral perihilar infiltrates with resolution of previously noted elevated left hemidiaphragm. Round nodular density overlying the left lung base, favored to relate to nipple shadow. Dictated by: Dictated on workstation # [id number]
[2021-06-19 06:49] LABS: ALBUMIN 2.8 GM/DL (3.2-4.5); POTASSIUM 4.9 MMOL/L (3.6-5.0)
[2021-06-19 06:51] LABS: CALCIUM 8.2 MG/DL (8.5-10.1)
[2021-06-19 06:52] LABS: TOTAL PROTEIN 5.8 GM/DL (6.4-8.2)
[2021-06-19 06:54] LABS: BILIRUBIN,TOTAL 0.4 MG/DL (0.1-1.0)
[2021-06-19 06:55] LABS: CREATININE SERUM 0.92 MG/DL (0.60-1.30)
[2021-06-19 07:53] VITALS: BP 123/74
[2021-06-19] MEDS: ENOXAPARIN 30 MG/0.3 ML (LOVENOX) SYR SC SCH (08:00)
[2021-06-19] MEDS: DOCUSATE SODIUM 100 MG (COLACE) CAP PO SCH ×2 (08:06→19:52)
[2021-06-19] MEDS: SENNOSIDES 8.6 MG (SENOKOT) TAB PO SCH ×2 (08:07→19:52)
[2021-06-19] MEDS ORDERED: RT-ALBUTEROL SULF 2.5 MG/3 ML PRE-MIX VIAL INH PRN (10:00)
[2021-06-19] MEDS: RT-ALBUTEROL SULF 2.5 MG/3 ML PRE-MIX VIAL INH SCH ×3 (10:23→20:21)
[2021-06-19] MEDS: VANCOMYCIN 750 MG/NS 250 ML IVPB IV SCH ×2 (10:50)
--- NOTE | 2021-06-19 10:54 | Physical Therapy Daily Note ---
PT Daily Note-Current Subjective Patient lying supine in bed upon PT arrival with sitter and caregiver in the room. Caregiver reports the patient was pulling at all of her attachments last night and this morning. She also reports that the patient was given pain medicine and they have been unable to get her to fully awaken. Transfers SCALE: Activities may be completed with or without assistive devices. 1-Tutsmmavrl-ikmzpup completes the activity by him/herself with no assistance from a helper. 5-Set-up or Clean-up Assistance-helper sets up or cleans up; patient completes activity. [place] assists only prior to or following the activity. 4-Supervision or Touching Assistance-helper provides verbal cues and/or touching/steadying and/or contact guard assistance as patient completes activity. Assistance may be provided throughout the activity or intermittently. 3-Partial/Moderate Assistance-helper does LESS THAN HALF the effort. [place] lifts, holds or supports trunk or limbs, but provides less than half the effort. 2-Substantial/Maximal Assistance-helper does MORE THAN HALF the effort. [place] lifts or holds trunk or limbs and provides more than half the effort. 0-Orkevtejb-fffamq does ALL the effort. Patient does none of the effort to complete the activity. Or, the assistance of 2 or more helpers is required for the patient to complete the activity. If activity was not attempted, code reason: 7-Patient Refused. 9-Not Applicable-not attempted and the patient did not perform the activity before the current illness, exacerbation or injury. 10-Not Attempted due to Environmental Limitations-(lack of equipment, weather restraints, etc.). 88-Not Attempted due to Medical Conditions or Safety Concerns. Roll Left & Right (QC): 2 Sit to Lying (QC): 2 Lying to Sitting/Side of Bed(Q: 2 Sit to Stand (QC): 2 Chair/Cvu-nu-Lknmb Xfer(QC): 2 Weight Bearing Right Lower Extremity: Right Weight Bearing/Tolerated Left Lower Extremity: Left Full Weight Bearing Gait Training Does the Patient Walk?: Yes Distance: 60 Walk 10 feet (QC): 2 Walk 50 ft with 2 Turns(QC): 2 Gait Assistive Device: None Assessment Current Status: Fair Progress Patient was maximally drowsy upon PT arrival. Patient eventually did awaken and participated to her ability, however appears to grimace quite often with movement of the LEs, including the left LE. Patient required max A for all bed mobility and transfers. She ambulates 60 feet with max A and one person for O2. Patient ambulates with significant antalgic gait pattern on the right LE. Pat ient in chair post treatment with all needs met, nursing notified, call light in reach, sitter and caregiver in the room. PT Trouble Operator Goals Fpc Goals PT Fpc Goals Time Frame: Jun 26, 2021 Roll Left & Right (QC): 3 Sit to Lying (QC): 3 Lying-Sitting on Side/Bed(QC): 3 Sit to Stand (QC): 3 Chair/Veb-dr-Gsmit Xfer(QC): 3 Toilet Transfer (QC): 3 Does the Patient Walk: Yes Walk 10 feet (QC): 3 Walk 50ft with 2 Turns (QC): 3 Walk 150 ft (QC): 3 PT Plan Treatment/Plan Treatment Plan: Continue Plan of Care Treatment Plan: Bed Mobility, Education, Functional Activity Dayami, Functional Strength, Group Therapy, Gait, Safety, Therapeutic Exercise, Transfers Treatment Duration: Jun 26, 2021 Frequency: 6 times per week Estimated Hrs Per Day: .25 hour per day Safety Risks/Education Patient Education: Gait Training Teaching Recipient: Patient, Primary Caregiver Teaching Methods: Demonstration, Discussion Response to Teaching: Reinforcement Needed Time/GCodes Time In: 845 Time Out: 905 Total Billed Treatment Time: 20 Total Billed Treatment Visit, AIDE Mendez PT Jun 19, 2021 10:54
[2021-06-19 11:49] VITALS: BP 89/82
[2021-06-19 15:07] VITALS: BP 88/47
[2021-06-19 19:15] VITALS: BP 82/55
[2021-06-20] VITALS (11 sets, daily range): BP systolic 76–92; BP diastolic 40–62
[2021-06-20] MEDS: CEFEPIME INJECTION 1,000 MG in NS (IVPB) 50 ML IV SCH ×3 (03:43→20:21)
[2021-06-20 06:16] LABS: BASOPHILS # (AUTO) 0.1 10^3/uL (0.0-0.1); BASOPHILS % (AUTO) 1 % (0-10); EOSINOPHILS # (AUTO) 0.2 10^3/uL (0.0-0.3); EOSINOPHILS % (AUTO) 2 % (0-10); LYMPHOCYTES # (AUTO) 1.3 10^3/uL (1.0-4.0); LYMPHOCYTES % (AUTO) 13 % (12-44); MEAN CORPUSCULAR HEMOGLOBIN 32 pg (25-34); MEAN CORPUSCULAR HGB CONC 32 g/dL (32-36); MEAN CORPUSCULAR VOLUME 101 fL (80-99); MEAN PLATELET VOLUME 10.8 fL (9.0-12.2); MONOCYTES # (AUTO) 0.3 10^3/uL (0.0-1.0); MONOCYTES % (AUTO) 3 % (0-12); NEUTROPHILS % (AUTO) 81 % (42-75); PLATELET COUNT 242 10^3/uL (130-400); WHITE BLOOD COUNT 9.9 10^3/uL (4.3-11.0)
[2021-06-20 06:19] LABS: HEMATOCRIT 19 % (35-52); HEMOGLOBIN 6.1 g/dL (11.5-16.0)
[2021-06-20 06:28] LABS: ALBUMIN 2.2 GM/DL (3.2-4.5); POTASSIUM 5.1 MMOL/L (3.6-5.0)
[2021-06-20 06:29] LABS: CALCIUM 7.7 MG/DL (8.5-10.1)
[2021-06-20 06:31] LABS: TOTAL PROTEIN 4.4 GM/DL (6.4-8.2)
[2021-06-20 06:32] LABS: BILIRUBIN,TOTAL 0.3 MG/DL (0.1-1.0)
[2021-06-20 06:34] LABS: CREATININE SERUM 1.16 MG/DL (0.60-1.30)
[2021-06-20] MEDS ORDERED: NS IV 500 ML 500 ML IV SCH ×2 (06:45)
--- NOTE | 2021-06-20 06:47 | Progress Note - Hospitalist ---
Subjective HPI/CC On Admission Date Seen by Provider: Jun 20, 2021 Time Seen by Provider: 10:00 CC: right hip fracture HPI: 66 yr old WF intellectually delayed individual who lives in a halfway. She presented with a right hip fracture. She hadn't been eating or drinking for a few days. Labs revealed dehydration. She was assessed in the ER and found to have a right hip fracture due to favoring that leg and wouldn't walk like she usually does. She had an uneventful hip fracture repair by Dr. Batista. IV fluids maintained with good resolution of hypernatremia. Subjective/Events-last exam Patient about the same Eating and drinking a bit Checked meds and labs Hemoglobin 6.1 order 1 unit of blood Patient is very debilitated Review of Systems Neurological: Confusion Focused Exam Lactate Level 06/18/21 12:47: Lactic Acid Level 2.31*H 06/19/21 06:20: Lactic Acid Level 2.33*H 06/19/21 08:40: Lactic Acid Level 1.38 Objective Exam Vital Signs Vital Signs Date Time Temp Pulse Resp B/P (MAP) Pulse Ox O2 Delivery O2 Flow Rate FiO2 06/21/21 03:38 36.6 63 18 92/54 (67) 99 Nasal Cannula 2.00 06/16/21 19:21 21 Capillary Refill : Less Than 3 Seconds General Appearance: No Apparent Distress, WD/WN, Anxious, Thin Respiratory: Crackles Cardiovascular: Regular Rate, Rhythm Results/Procedures Lab Laboratory Tests 06/20/21 06:05 Patient resulted labs reviewed. Imaging: Reviewed Imaging Report Assessment/Plan Assessment and Plan Assess & Plan/Chief Complaint Assessment: Right Intertrochanteric Femur Fracture s/p Surgical Fixation on 06/17/21 Ambiguous Genitalia Mental Disability Sepsis Difficulty Swallowing Urinary Retention Hypotension Anemia Staph bacteremia? Placed on vancomycin UTI? Placed on gram-negative coverage Hypotension without evidence of sepsis usual systolic blood pressure 80 per well surveying engineer Postop acute blood loss anemia hemoglobin 6.1 ordered blood Plan: Continue antibiotics Nebulizer treatments Chest x-ray worse likely fluid but blood pressure too low to diurese Supportive care 06/20/2021: Blood transfusion Continue antibiotics Prognosis poor Clinical Quality Measures DVT/VTE Risk/Contraindication: Contraindications-Pharm: Other *list below* Other: OR WILMAN LEE DO Jun 20, 2021 06:47
[2021-06-20] MEDS: KETOROLAC 15 MG/ML VIAL IV SCH ×4 (07:00→23:36)
[2021-06-20] MEDS: ENOXAPARIN 30 MG/0.3 ML (LOVENOX) SYR SC SCH (08:50)
[2021-06-20] MEDS: IRON SUCROSE 200 MG/10 ML (VENOFER) VIAL IV SCH (08:50)
[2021-06-20] MEDS: SENNOSIDES 8.6 MG (SENOKOT) TAB PO SCH ×2 (09:00→20:21)
[2021-06-20] MEDS: DOCUSATE SODIUM 100 MG (COLACE) CAP PO SCH ×2 (09:00→20:21)
[2021-06-20] MEDS ORDERED: TROUGH ORDER-PHARMACY XX NR (10:00)
[2021-06-20] MEDS: RT-ALBUTEROL SULF 2.5 MG/3 ML PRE-MIX VIAL INH SCH ×3 (11:06→18:21)
[2021-06-20] MEDS: VANCOMYCIN 750 MG/NS 250 ML IVPB IV SCH ×2 (13:27)
[2021-06-21 03:38] VITALS: BP 92/54
[2021-06-21] MEDS: CEFEPIME INJECTION 1,000 MG in NS (IVPB) 50 ML IV SCH ×2 (04:08→11:10)
[2021-06-21] MEDS: KETOROLAC 15 MG/ML VIAL IV SCH ×3 (05:58→17:08)
[2021-06-21 06:14] LABS: BASOPHILS # (AUTO) 0.1 10^3/uL (0.0-0.1); BASOPHILS % (AUTO) 1 % (0-10); EOSINOPHILS # (AUTO) 0.2 10^3/uL (0.0-0.3); EOSINOPHILS % (AUTO) 2 % (0-10); HEMATOCRIT 26 % (35-52); HEMOGLOBIN 8.5 g/dL (11.5-16.0); LYMPHOCYTES # (AUTO) 1.1 10^3/uL (1.0-4.0); LYMPHOCYTES % (AUTO) 10 % (12-44); MEAN CORPUSCULAR HEMOGLOBIN 31 pg (25-34); MEAN CORPUSCULAR HGB CONC 33 g/dL (32-36); MEAN CORPUSCULAR VOLUME 94 fL (80-99); MONOCYTES # (AUTO) 0.3 10^3/uL (0.0-1.0); MONOCYTES % (AUTO) 3 % (0-12); NEUTROPHILS # (AUTO) 9.4 10^3/uL (1.8-7.8); NEUTROPHILS % (AUTO) 85 % (42-75); PLATELET COUNT 287 10^3/uL (130-400); WHITE BLOOD COUNT 11.1 10^3/uL (4.3-11.0)
[2021-06-21 06:23] LABS: ALBUMIN 2.2 GM/DL (3.2-4.5)
[2021-06-21 06:24] LABS: POTASSIUM 4.6 MMOL/L (3.6-5.0)
[2021-06-21 06:25] LABS: CALCIUM 8.2 MG/DL (8.5-10.1)
[2021-06-21 06:26] LABS: TOTAL PROTEIN 4.7 GM/DL (6.4-8.2)
[2021-06-21 06:28] LABS: BILIRUBIN,TOTAL 0.4 MG/DL (0.1-1.0)
[2021-06-21 06:29] LABS: CREATININE SERUM 1.07 MG/DL (0.60-1.30)
[2021-06-21] MEDS: RT-ALBUTEROL SULF 2.5 MG/3 ML PRE-MIX VIAL INH SCH ×2 (07:19→20:07)
[2021-06-21 08:00] VITALS: BP 80/50
--- NOTE | 2021-06-21 09:04 | Speech Therapy Progress Note ---
Therapy Progress Note Following an extensive chart review on this date, the patient's chest exam appears to be worsening at this time. Additionally, there is documentation reporting the necessity of suctioning of secretions and questionable aspiration of the patient's own secretions with an increase in oxygen needs. Per speech pathologist's evaluation on 06/18/21, "The patient remains at an elevated risk for aspiration with PO intake of any kind secondary to the patient's severely reduced oral coordination and bolus control. If concerns of aspiration continue, s/s of suspected aspiration are demonstrated with the modified diet consistency recommendation, or the patient's chest exam worsens, the clinician highly recommends placing the patient NPO and considering an alternative source for nutrition, hydration and medication." The clinician contacted the assigned RN for this date and shared her recommendations of placing the patient NPO due to the documentation of aspiration concerns, increased oxygen needs, and worsening chest exams. Speech pathology will re-assess the patient as soon as possible (discussed with the RN due to scheduling conflicts, the clinician will not arrive to the floor until after 1300) and provide appropriate recommendations at that time. MK NAVARRO Jun 21, 2021 09:04
[2021-06-21] MEDS: DOCUSATE SODIUM 100 MG (COLACE) CAP PO SCH ×2 (09:30→19:23)
[2021-06-21] MEDS: SENNOSIDES 8.6 MG (SENOKOT) TAB PO SCH ×2 (09:31→19:23)
[2021-06-21] MEDS: VANCOMYCIN 750 MG/NS 250 ML IVPB IV SCH ×2 (10:17)
[2021-06-21] MEDS: ENOXAPARIN 30 MG/0.3 ML (LOVENOX) SYR SC SCH (10:17)
--- NOTE | 2021-06-21 11:11 | Progress Note - Urology ---
Progress Note-Urology Progress Notes/Assess & Plan Progress/Assessment & Plan MAY DC BARNES ANY TIME WALKER Final Diagnosis AMBIGUOUS GENITALIA DALILA ARCOS MD Jun 21, 2021 11:11
--- NOTE | 2021-06-21 11:24 | Physical Therapy Daily Note ---
PT Daily Note-Current Subjective Patient presented laying in bed with her caregiver at bedside. Mental Status Patient Orientation: Non-Verbal/Aphasic Attachments: Oxygen (2L NC), IV Transfers SCALE: Activities may be completed with or without assistive devices. 8-Umcyndpmaz-vrbfgih completes the activity by him/herself with no assistance from a helper. 5-Set-up or Clean-up Assistance-helper sets up or cleans up; patient completes activity. [place] assists only prior to or following the activity. 4-Supervision or Touching Assistance-helper provides verbal cues and/or touching/steadying and/or contact guard assistance as patient completes activity. Assistance may be provided throughout the activity or intermittently. 3-Partial/Moderate Assistance-helper does LESS THAN HALF the effort. [place] lifts, holds or supports trunk or limbs, but provides less than half the effort. 2-Substantial/Maximal Assistance-helper does MORE THAN HALF the effort. [place] lifts or holds trunk or limbs and provides more than half the effort. 1-Knqwkcmhp-adlyoc does ALL the effort. Patient does none of the effort to complete the activity. Or, the assistance of 2 or more helpers is required for the patient to complete the activity. If activity was not attempted, code reason: 7-Patient Refused. 9-Not Applicable-not attempted and the patient did not perform the activity before the current illness, exacerbation or injury. 10-Not Attempted due to Environmental Limitations-(lack of equipment, weather restraints, etc.). 88-Not Attempted due to Medical Conditions or Safety Concerns. Lying to Sitting/Side of Bed(Q: 1 Sit to Stand (QC): 1 Chair/Qak-if-Irisa Xfer(QC): 1 Patient was dependent for transfer to side of bed and into the chair. Patient was max assist for sit to stand transfer. Weight Bearing Right Lower Extremity: Right Weight Bearing/Tolerated Left Lower Extremity: Left Full Weight Bearing Gait Training Distance: 100' Walk 10 feet (QC): 1 Walk 50 ft with 2 Turns(QC): 1 Patient was dependent for ambulation. Patient ambulated with scissoring gait. Patient required assistance from therapist standing behind her and holding her up while helping advance her feet. Assessment Patient ambulated for 100' but was dependent for ambulation. Patient required assistance to move her feet forward. Patient was left post tx sitting in her chair with her caregiver at her side. PT Industrial Mechanic Goals Custodial Goals PT Custodial Goals Time Frame: Jun 26, 2021 Roll Left & Right (QC): 3 Sit to Lying (QC): 3 Lying-Sitting on Side/Bed(QC): 3 Sit to Stand (QC): 3 Chair/Bjn-gs-Funpe Xfer(QC): 3 Toilet Transfer (QC): 3 Does the Patient Walk: Yes Walk 10 feet (QC): 3 Walk 50ft with 2 Turns (QC): 3 Walk 150 ft (QC): 3 PT Plan Problem List Problem List: Activity Tolerance, Functional Strength, Safety, Balance, Gait, Transfer, Bed Mobility, ROM Treatment/Plan Treatment Plan: Continue Plan of Care Treatment Plan: Bed Mobility, Education, Functional Activity Dayami, Functional Strength, Group Therapy, Gait, Safety, Therapeutic Exercise, Transfers Treatment Duration: Jun 26, 2021 Frequency: 6 times per week Estimated Hrs Per Day: .25 hour per day Time/GCodes Time In: 1042 Time Out: 1055 Total Billed Treatment Time: 13 Total Billed Treatment 1 Visit Gait 13 min CORINNA FERRER PT Jun 21, 2021 11:23
[2021-06-21 11:34] VITALS: BP 116/70
--- NOTE | 2021-06-21 13:12 | Speech Therapy Daily Note ---
Speech Daily Progress Note Subjective Date Seen by Provider: Jun 21, 2021 Time Seen by Provider: 12:41 The patient was seated upright in her recliner, awake and alert upon entrance to the room. The patient's caregiver was at bedside, allowing the clinician to hold conversations and education regarding the patient's oropharyngeal swallow function. Per caregiver, the patient does not display s/s of suspected aspiration with PO consistencies at home. The patient is currently receiving 2L supplemental oxygen via nasal cannula. Objective The clinician provided the patient with thin liquid via teaspoon (three teaspoons) and puree via half teaspoon (three teaspoons). Prior to PO trials, a cough response was not present. Immediately following each trial, a rigorous, productive cough was displayed and audible, wet respirations were present. For patient safety, PO trials were ended at this time. Due to the persistent s/s of suspected aspiration with PO intake and the patient's inability to follow verbal commands, the clinician highly recommends a modified barium swallow study to investigate the presence of aspiration with PO consistencies during the oropharyngeal swallow response. The patient has been cooperative and participatory throughout each session and at this time is deemed appropriate for participation in the study by the clinician. Recommendations: - The patient should continue NPO status. - Frequent and excellent oral care to reduce the transfer of oral bacteria to the lungs should aspiration of secretions occur. - Moist oral swabs for oral comfort, sparingly. - Completion of a modified barium swallow evaluation to definitively study the suspected presence of aspiration with PO consistencies during the oropharyngeal swallow function. The recommendations were provided to the caregiver at bedside. The caregiver's questions were answered within the clinician's scope of practice. Once an order is placed for the modified barium swallow, the clinician will contact scheduling for the soonest availability. The clinician will continue attempts at contacting the RN for order placement. Assessment Assessment Current Status: Poor Progress Treatment Plan Continue Plan of Care Speech Short Term Goals Short Term Goals Short Term Goals 1. The patient and staff will display 90% accuracy with safe swallowing strategies, independently. [facility] Director Goals Jail Goals 1. The patient will tolerate the least restrictive diet consistency without the presence of s/s of suspected aspiration with 90% accuracy. Speech-Plan Treatment Plan Speech Therapy Treatment Plan: Continue Plan of Care Frequency: 3 times per week Estimated Hrs Per Day: .25 hour per day Rehab Potential: Poor Pt/Family Agrees to Plan: Yes Safety Risks/Education Teaching Recipient: Patient, Primary Caregiver Teaching Methods: Discussion Response to Teaching: Verbalize Understanding Education Topics Provided: Results, Recommendations, Modified Barium Swallow Education Time Speech Therapy Time In: 12:41 Speech Therapy Time Out: 12:56 Total Billed Time: 15 Billed Treatment Time 1, DYST MK Lucero Jun 21, 2021 13:12
[2021-06-21 15:11] VITALS: BP 105/70
--- NOTE | 2021-06-21 17:59 | Progress Note - Hospitalist ---
Subjective HPI/CC On Admission Date Seen by Provider: Jun 21, 2021 Time Seen by Provider: 10:10 CC: right hip fracture HPI: 66 yr old WF intellectually delayed individual who lives in a [place] [facility]. She presented with a right hip fracture. She hadn't been eating or drinking for a few days. Labs revealed dehydration. She was assessed in the ER and found to have a right hip fracture due to favoring that leg and wouldn't walk like she usually does. She had an uneventful hip fracture repair by Dr. Batista. IV fluids maintained with good resolution of hypernatremia. Subjective/Events-last exam She is nonverbal. Her caregiver is at the bedside. She has been having trouble swallowing. Focused Exam Lactate Level 06/19/21 06:20: Lactic Acid Level 2.33*H 06/19/21 08:40: Lactic Acid Level 1.38 Objective Exam Vital Signs Vital Signs Date Time Temp Pulse Resp B/P (MAP) Pulse Ox O2 Delivery O2 Flow Rate FiO2 06/21/21 15:11 35.8 58 20 105/70 (82) 100 Nasal Cannula 2.00 06/16/21 19:21 21 Capillary Refill : Less Than 3 Seconds General Appearance: No Apparent Distress, Chronically ill, Thin Respiratory: No Respiratory Distress, Rhonci Cardiovascular: Regular Rate, Rhythm, No Murmur Gastrointestinal: Normal Bowel Sounds, Soft Extremity: Normal Inspection, No Pedal Edema Neurologic/Psychiatric: Alert, Aphasia Skin: Warm/Dry, Pallor Results/Procedures Lab Laboratory Tests 06/21/21 05:38 Patient resulted labs reviewed. Imaging: Reviewed Imaging Report Assessment/Plan Assessment and Plan Assess & Plan/Chief Complaint Hip fracture Ortho following s/p surgical repair 06/17 Pain regimen Bowel regimen PT/OT Postoperative anemia due to acute blood loss s/p 1 unit PRBC Hgb 8.5 Monitor Dysphagia Speech/swallow evaluation Modified barium swallow recommended NPO Possible Staph capitis bacteremia Blood cultures with Staph capitis Currently on Vanc and Cefepime Susceptibilities show sensitivity to Ancef Urine culture with no growth Transition to Ancef Cognitive impairment Chronic, at baseline DVT prophylaxis: Lovenox Diagnosis/Problems Diagnosis/Problems (1) Closed right hip fracture Status: Acute (2) Anemia Status: Acute (3) Dysphagia Status: Acute (4) Mental disability Status: Chronic Clinical Quality Measures DVT/VTE Risk/Contraindication: Contraindications-Pharm: Other *list below* Other: OR HEBER ÁLVAREZ MD Jun 21, 2021 17:58
[2021-06-21] MEDS: ceFAZolin 2 GM IV Premixed 50 ML IV SCH (19:23)
[2021-06-21 19:39] VITALS: BP 101/57
[2021-06-22] VITALS (7 sets, daily range): BP systolic 101–117; BP diastolic 55–65
[2021-06-22] MEDS: ceFAZolin 2 GM IV Premixed 50 ML IV SCH ×3 (02:18→18:26)
[2021-06-22 06:23] LABS: BASOPHILS # (AUTO) 0.1 10^3/uL (0.0-0.1); BASOPHILS % (AUTO) 0 % (0-10); EOSINOPHILS # (AUTO) 0.2 10^3/uL (0.0-0.3); EOSINOPHILS % (AUTO) 2 % (0-10); HEMATOCRIT 28 % (35-52); HEMOGLOBIN 9.2 g/dL (11.5-16.0); LYMPHOCYTES # (AUTO) 1.1 10^3/uL (1.0-4.0); LYMPHOCYTES % (AUTO) 8 % (12-44); MEAN CORPUSCULAR HEMOGLOBIN 31 pg (25-34); MEAN CORPUSCULAR HGB CONC 33 g/dL (32-36); MEAN CORPUSCULAR VOLUME 95 fL (80-99); MEAN PLATELET VOLUME 10.5 fL (9.0-12.2); MONOCYTES # (AUTO) 0.4 10^3/uL (0.0-1.0); MONOCYTES % (AUTO) 3 % (0-12); NEUTROPHILS # (AUTO) 11.3 10^3/uL (1.8-7.8); NEUTROPHILS % (AUTO) 85 % (42-75); PLATELET COUNT 414 10^3/uL (130-400); WHITE BLOOD COUNT 13.3 10^3/uL (4.3-11.0)
[2021-06-22 06:36] LABS: ALBUMIN 2.3 GM/DL (3.2-4.5); POTASSIUM 4.4 MMOL/L (3.6-5.0)
[2021-06-22 06:37] LABS: CALCIUM 8.4 MG/DL (8.5-10.1)
[2021-06-22 06:40] LABS: BILIRUBIN,TOTAL 0.3 MG/DL (0.1-1.0)
[2021-06-22 06:42] LABS: CREATININE SERUM 1.05 MG/DL (0.60-1.30)
[2021-06-22] MEDS: RT-ALBUTEROL SULF 2.5 MG/3 ML PRE-MIX VIAL INH SCH ×3 (07:39→21:18)
[2021-06-22] MEDS: D5 1/2 NS W/KCL 20 MEQ/L 1,000 ML IV SCH ×2 (08:34→23:36)
[2021-06-22] MEDS: SENNOSIDES 8.6 MG (SENOKOT) TAB PO SCH ×2 (08:35→21:09)
[2021-06-22] MEDS: IRON SUCROSE 200 MG/10 ML (VENOFER) VIAL IV SCH (08:35)
[2021-06-22] MEDS: DOCUSATE SODIUM 100 MG (COLACE) CAP PO SCH ×2 (08:35→21:09)
[2021-06-22] MEDS: ENOXAPARIN 30 MG/0.3 ML (LOVENOX) SYR SC SCH (08:35)
--- NOTE | 2021-06-22 09:18 | Progress Note - Urology ---
Progress Note-Urology Progress Notes/Assess & Plan Progress/Assessment & Plan BARNES OUT. VOIDING ON OWN. WE WILL SEE PRN Final Diagnosis AMBIGUOUS GENITALIA DALILA ARCOS MD Jun 22, 2021 09:18
--- NOTE | 2021-06-22 11:27 | Physical Therapy Daily Note ---
PT Daily Note-Current Subjective Patient presented laying in bed. Mental Status Attachments: Oxygen (3L NC), IV Transfers SCALE: Activities may be completed with or without assistive devices. 6-Admxlcdppa-roqfwad completes the activity by him/herself with no assistance from a helper. 5-Set-up or Clean-up Assistance-helper sets up or cleans up; patient completes activity. [place] assists only prior to or following the activity. 4-Supervision or Touching Assistance-helper provides verbal cues and/or touching/steadying and/or contact guard assistance as patient completes activity. Assistance may be provided throughout the activity or intermittently. 3-Partial/Moderate Assistance-helper does LESS THAN HALF the effort. [place] lifts, holds or supports trunk or limbs, but provides less than half the effort. 2-Substantial/Maximal Assistance-helper does MORE THAN HALF the effort. [place] lifts or holds trunk or limbs and provides more than half the effort. 9-Himqwudjz-jzbyfq does ALL the effort. Patient does none of the effort to com plete the activity. Or, the assistance of 2 or more helpers is required for the patient to complete the activity. If activity was not attempted, code reason: 7-Patient Refused. 9-Not Applicable-not attempted and the patient did not perform the activity before the current illness, exacerbation or injury. 10-Not Attempted due to Environmental Limitations-(lack of equipment, weather restraints, etc.). 88-Not Attempted due to Medical Conditions or Safety Concerns. Lying to Sitting/Side of Bed(Q: 1 Sit to Stand (QC): 1 Chair/Mnt-hh-Xfrbg Xfer(QC): 1 Patient was dependent for all transfers and bed mobility. Weight Bearing Right Lower Extremity: Right Weight Bearing/Tolerated Left Lower Extremity: Left Full Weight Bearing Gait Training Distance: 150' Walk 10 feet (QC): 1 Walk 50 ft with 2 Turns(QC): 1 Walk 150 ft (QC): 1 Patient was dependent for ambulation. Patient was able to move her feet forward today but required dependence for ambulation. PT stood behind the patient and held the patient up while ambulating. Patient did not ambulate with FWW due to lack of cognitive function. Assessment Patient ambulated for 150' with PT assist. Patient was dependent for all transfers and ambulation. Patient was able to move her feet while ambulating better today than yesterday. PT Detention Goals Detention Goals PT Detention Goals Time Frame: Jun 26, 2021 Roll Left & Right (QC): 3 Sit to Lying (QC): 3 Lying-Sitting on Side/Bed(QC): 3 Sit to Stand (QC): 3 Chair/Oja-mg-Czsjt Xfer(QC): 3 Toilet Transfer (QC): 3 Does the Patient Walk: Yes Walk 10 feet (QC): 3 Walk 50ft with 2 Turns (QC): 3 Walk 150 ft (QC): 3 PT Plan Problem List Problem List: Activity Tolerance, Functional Strength, Safety, Balance, Gait, Transfer, Bed Mobility, ROM Treatment/Plan Treatment Plan: Continue Plan of Care Treatment Plan: Bed Mobility, Education, Functional Activity Dayami, Functional Strength, Group Therapy, Gait, Safety, Therapeutic Exercise, Transfers Treatment Duration: Jun 26, 2021 Frequency: 6 times per week Estimated Hrs Per Day: .25 hour per day Patient and/or Family Agrees t: Yes Time/GCodes Time In: 1012 Time Out: 1023 Total Billed Treatment Time: 11 Total Billed Treatment 1 Visit FA 11 min CORINNA FERRER PT Jun 22, 2021 11:27
--- NOTE | 2021-06-22 15:43 | Progress Note - Hospitalist ---
Subjective HPI/CC On Admission Date Seen by Provider: Jun 22, 2021 Time Seen by Provider: 09:20 CC: right hip fracture HPI: 66 yr old WF intellectually delayed individual who [facility]. She presented with a right hip fracture. She hadn't been eating or drinking for a few days. Labs revealed dehydration. She was assessed in the ER and found to have a right hip fracture due to favoring that leg and wouldn't walk like she usually does. She had an uneventful hip fracture repair by Dr. Batista. IV fluids maintained with good resolution of hypernatremia. Subjective/Events-last exam She is nonverbal. Her caregiver is not at the bedside this morning. Objective Exam Vital Signs Vital Signs Date Time Temp Pulse Resp B/P (MAP) Pulse Ox O2 Delivery O2 Flow Rate FiO2 06/22/21 15:34 58 20 117/63 (81) 97 Nasal Cannula 2.00 06/22/21 12:00 35.9 06/16/21 19:21 21 Capillary Refill : Less Than 3 Seconds General Appearance: No Apparent Distress, Chronically ill, Thin Respiratory: No Respiratory Distress, Rhonci Cardiovascular: Regular Rate, Rhythm, No Murmur Gastrointestinal: Normal Bowel Sounds, Soft Extremity: Normal Inspection, No Pedal Edema Neurologic/Psychiatric: Alert, Aphasia Skin: Warm/Dry Results/Procedures Lab Laboratory Tests 06/22/21 06:10 Patient resulted labs reviewed. Imaging: Reviewed Imaging Report Assessment/Plan Assessment and Plan Assess & Plan/Chief Complaint Hip fracture Ortho following s/p surgical repair 06/17 Pain regimen Bowel regimen PT/OT Postoperative anemia due to acute blood loss s/p 1 unit PRBC Hgb stable Monitor Dysphagia Speech/swallow evaluation Modified barium swallow tomorrow NPO Possible Staph capitis bacteremia Continue Ancef Cognitive impairment Social work consulted Does not appear to have an appointed guardian Pursuing emergency guardianship DVT prophylaxis: Lovenox Diagnosis/Problems Diagnosis/Problems (1) Closed right hip fracture Status: Acute (2) Anemia Status: Acute (3) Dysphagia Status: Acute (4) Mental disability Status: Chronic Clinical Quality Measures DVT/VTE Risk/Contraindication: Contraindications-Pharm: Other *list below* Other: OR HEBER ÁLVAREZ MD Jun 22, 2021 15:43
[2021-06-23] VITALS (7 sets, daily range): BP systolic 104–139; BP diastolic 56–73
[2021-06-23] MEDS: ceFAZolin 2 GM IV Premixed 50 ML IV SCH ×3 (02:39→17:35)
[2021-06-23 05:49] LABS: BASOPHILS # (AUTO) 0.1 10^3/uL (0.0-0.1); BASOPHILS % (AUTO) 1 % (0-10); EOSINOPHILS # (AUTO) 0.3 10^3/uL (0.0-0.3); EOSINOPHILS % (AUTO) 2 % (0-10); HEMATOCRIT 28 % (35-52); HEMOGLOBIN 9.4 g/dL (11.5-16.0); LYMPHOCYTES # (AUTO) 1.2 10^3/uL (1.0-4.0); LYMPHOCYTES % (AUTO) 10 % (12-44); MEAN CORPUSCULAR HEMOGLOBIN 32 pg (25-34); MEAN CORPUSCULAR HGB CONC 33 g/dL (32-36); MEAN CORPUSCULAR VOLUME 95 fL (80-99); MONOCYTES # (AUTO) 0.7 10^3/uL (0.0-1.0); MONOCYTES % (AUTO) 6 % (0-12); NEUTROPHILS # (AUTO) 8.9 10^3/uL (1.8-7.8); NEUTROPHILS % (AUTO) 78 % (42-75); PLATELET COUNT 469 10^3/uL (130-400); WHITE BLOOD COUNT 11.4 10^3/uL (4.3-11.0)
[2021-06-23 06:12] LABS: ALBUMIN 2.3 GM/DL (3.2-4.5); BILIRUBIN,TOTAL 0.3 MG/DL (0.1-1.0); CALCIUM 8.3 MG/DL (8.5-10.1); CREATININE SERUM 0.96 MG/DL (0.60-1.30); POTASSIUM 4.4 MMOL/L (3.6-5.0); TOTAL PROTEIN 5.2 GM/DL (6.4-8.2)
[2021-06-23] MEDS: RT-ALBUTEROL SULF 2.5 MG/3 ML PRE-MIX VIAL INH SCH ×3 (08:30→20:54)
[2021-06-23] MEDS: DOCUSATE SODIUM 100 MG (COLACE) CAP PO SCH ×2 (08:39→19:08)
[2021-06-23] MEDS: SENNOSIDES 8.6 MG (SENOKOT) TAB PO SCH ×3 (08:39→19:08)
[2021-06-23] MEDS: ENOXAPARIN 30 MG/0.3 ML (LOVENOX) SYR SC SCH (08:39)
--- NOTE | 2021-06-23 09:19 | Physical Therapy Daily Note ---
PT Daily Note-Current Subjective Patient presents sitting in bed. Appearance Patient in recliner post tx with sitter in room. Mental Status Attachments: Oxygen (2L NC), IV Transfers SCALE: Activities may be completed with or without assistive devices. 1-Obgnjwqvhp-bnjbges completes the activity by him/herself with no assistance from a helper. 5-Set-up or Clean-up Assistance-helper sets up or cleans up; patient completes activity. [place] assists only prior to or following the activity. 4-Supervision or Touching Assistance-helper provides verbal cues and/or touching/steadying and/or contact guard assistance as patient completes activ ity. Assistance may be provided throughout the activity or intermittently. 3-Partial/Moderate Assistance-helper does LESS THAN HALF the effort. [place] lifts, holds or supports trunk or limbs, but provides less than half the effort. 2-Substantial/Maximal Assistance-helper does MORE THAN HALF the effort. [place] lifts or holds trunk or limbs and provides more than half the effort. 4-Bnyjulcdr-khgdff does ALL the effort. Patient does none of the effort to complete the activity. Or, the assistance of 2 or more helpers is required for the patient to complete the activity. If activity was not attempted, code reason: 7-Patient Refused. 9-Not Applicable-not attempted and the patient did not perform the activity before the current illness, exacerbation or injury. 10-Not Attempted due to Environmental Limitations-(lack of equipment, weather restraints, etc.). 88-Not Attempted due to Medical Conditions or Safety Concerns. Lying to Sitting/Side of Bed(Q: 1 Sit to Stand (QC): 1 Chair/Puk-ft-Daciv Xfer(QC): 1 Patient is dependent for all transfers. Weight Bearing Right Lower Extremity: Right Weight Bearing/Tolerated Left Lower Extremity: Left Full Weight Bearing Gait Training Does the Patient Walk?: Yes Distance: 150' Walk 10 feet (QC): 1 Walk 50 ft with 2 Turns(QC): 1 Walk 150 ft (QC): 1 Patient ambulated for 150' but was dependent for ambulation. Patient was able to take steps but the PT was holding her up as she was walking. Assessment Current Status: Poor Progress Patient continues to ambulate with therapy but is not progressing. Patient is still dependent for all transfers and ambulation. Patient cognitive status is limiting her progression. PT Clinical Manager Home Care Goals Clinical Manager Home Care Goals PT [facility] Goals Time Frame: Jun 26, 2021 Roll Left & Right (QC): 3 Sit to Lying (QC): 3 Lying-Sitting on Side/Bed(QC): 3 Sit to Stand (QC): 3 Chair/Ujc-an-Hdlcq Xfer(QC): 3 Toilet Transfer (QC): 3 Does the Patient Walk: Yes Walk 10 feet (QC): 3 Walk 50ft with 2 Turns (QC): 3 Walk 150 ft (QC): 3 PT Plan Problem List Problem List: Activity Tolerance, Functional Strength, Safety, Balance, Gait, Transfer, Bed Mobility, ROM Treatment/Plan Treatment Plan: Continue Plan of Care Treatment Plan: Bed Mobility, Education, Functional Activity Dayami, Functional Strength, Group Therapy, Gait, Safety, Therapeutic Exercise, Transfers Treatment Duration: Jun 26, 2021 Frequency: 6 times per week Estimated Hrs Per Day: .25 hour per day Patient and/or Family Agrees t: Yes Safety Risks/Education Patient Education: Gait Training, Transfer Techniques, Correct Positioning, Safety Issues Teaching Recipient: Patient Teaching Methods: Demonstration, Discussion Response to Teaching: Reinforcement Needed Time/GCodes Time In: 848 Time Out: 900 Total Billed Treatment Time: 12 Total Billed Treatment 1 Visit FA 12 min CHANDLER NO PT Jun 23, 2021 09:19
[2021-06-23] MEDS: D5 1/2 NS W/KCL 20 MEQ/L 1,000 ML IV SCH ×2 (10:40→16:10)
--- NOTE | 2021-06-23 10:58 | Speech Therapy Progress Note ---
Therapy Progress Note The speech pathologist completed the modified barium swallowing evaluation at 1015. The patient demonstrated gross, silent aspiration of honey-thick liquid throughout the assessment. The patient was unable to follow verbal cues or direct modeling in attempts to clear the aspirated material from the airway. As the patient is unable to follow directions to complete dysphagia exercises or swallowing strategies, the patient is not deemed appropriate for skilled speech pathology therapy and improvement of the oropharyngeal swallow function is not expected. The clinician recommends the following: Recommendations: - The patient should remain NPO. - Frequent and excellent oral care to reduce the transfer of aspiration to the lungs should aspiration of secretions occur. - Consider long-term alternative nutrition, hydration, and medication options ( PEG). The results and recommendations were discussed with the assigned RN. Full report with details to follow. MK NAVARRO Jun 23, 2021 10:58
--- NOTE | 2021-06-23 12:20 | Diagnostic Imaging Report ---
EXAMINATION: Modified barium swallow. INDICATION: Dysphagia. FINDINGS: This exam was performed in the presence of the speech pathologistGeon. There are no prior studies available for comparison. The patient was given barium with honey consistency to swallow. The patient exhibited an extremely sluggish oral phase and it seemed as if the barium-impregnated honey was only transferred to the upper esophagus by gravity. There was aspiration but there was no cough. Subsequently, the exam was terminated. IMPRESSION: The swallowing mechanism is severely compromised. There was aspiration but there was no cough. Dictated by: Dictated on workstation # [id number]
--- NOTE | 2021-06-23 13:00 | Progress Note - Hospitalist ---
Subjective HPI/CC On Admission Date Seen by Provider: Jun 23, 2021 Time Seen by Provider: 09:45 CC: right hip fracture HPI: 66 yr old WF intellectually delayed individual who lives in a long term. She presented with a right hip fracture. She hadn't been eating or drinking for a few days. Labs revealed dehydration. She was assessed in the ER and found to have a right hip fracture due to favoring that leg and wouldn't walk like she usually does. She had an uneventful hip fracture repair by Dr. Batista. IV fluids maintained with good resolution of hypernatremia. Subjective/Events-last exam She is nonverbal. She is awake and alert. She is restless. Her caregiver is at her side. Objective Exam Vital Signs Vital Signs Date Time Temp Pulse Resp B/P (MAP) Pulse Ox O2 Delivery O2 Flow Rate FiO2 06/23/21 12:01 36.7 57 18 104/58 (73) 99 Nasal Cannula 2.00 Capillary Refill : Less Than 3 Seconds General Appearance: No Apparent Distress, Chronically ill, Thin Respiratory: No Respiratory Distress, Rhonci Cardiovascular: Regular Rate, Rhythm, No Murmur Gastrointestinal: Normal Bowel Sounds, Soft Extremity: Normal Inspection, No Pedal Edema Neurologic/Psychiatric: Alert, Aphasia, Other (uncooperative) Skin: Normal Color, Warm/Dry Results/Procedures Lab Laboratory Tests 06/23/21 05:42 Patient resulted labs reviewed. Imaging: Reviewed Imaging Report Assessment/Plan Assessment and Plan Assess & Plan/Chief Complaint Hip fracture Ortho following s/p surgical repair 06/17 Pain regimen Bowel regimen PT/OT Postoperative anemia due to acute blood loss s/p 1 unit PRBC Hgb stable Monitor Dysphagia Modified barium swallow consistent with aspiration NPO Discussed PEG placement for tube feeding vs hospice care with her guardian Plans to discuss options with [facility] staff and caregivers Awaiting call back once decision made Possible Staph capitis bacteremia Continue Ancef Cognitive impairment Social work consulted Guardian in place, Cristina Felix [phone] DVT prophylaxis: Lovenox Diagnosis/Problems Diagnosis/Problems (1) Closed right hip fracture Status: Acute (2) Anemia Status: Acute (3) Dysphagia Status: Acute (4) Mental disability Status: Chronic Clinical Quality Measures DVT/VTE Risk/Contraindication: Contraindications-Pharm: Other *list below* Other: OR HEBER ÁLVAREZ MD Jun 23, 2021 13:00
--- NOTE | 2021-06-23 13:36 | ST Mod Barium Swallow ---
Speech Evaluation-General Medical Diagnosis s/p R Femur Fracture Onset Date: Jun 16, 2021 Therapy Diagnosis Therapy Diagnosis: Severe Oropharyngeal Dysphagia Precautions Precautions: Fall, Aspiration Precautions/Isolations: Standard Precautions Referral Referring Physician: Dr. Burger Reason for Referral: Evaluation/Treatment Medical History Current History The patient is a 66 year-old female with a past medical history of mental disability and ambiguous genitalia, who presented to [facility] wit decreased activity and reduced oral intake. Upon evaluation in the ED, the patient was found to be dehydrated and have an incidental right intertrochanteric femur fracture (surgical fixation on 06/17/21). 06/19/21: Slightly worsening bilateral perihilar infiltrates with resolution of previously noted elevated left hemidiaphragm. Round nodular density overlying the left lung base, favored to relate to nipple shadow. Reviewed History: Yes Social History Current Living Status: caregivers Speech Mod Barium Swallow Prior Level of Function Prior to the patient's recent admission to [facility], the patient was consuming a regular diet with thin liquids. The patient is nonverbal and is unable to provide additional information to the clinician. Oral Motor Skills Dentition Comments: The patient is edentulous. Lingual ROM: Abnormal (The patient does not follow verbal commands for completion of an oral mechanism examination. ) Lingual Strength: Abnormal Volitional Dry Swallow: No Voluntary Cough: No Can Clear Throat Volitionally: No Textures-Lateral View Lateral View Food Presentation: Honey Liquid via Spoon Oral Phase Labial Closure: Severe Impairment Bolus Formation Pooling L/R: Severe Impairment Bolus Formation Placement: Severe Impairment A/P Lingual Propulsion: Severe Impairment Lingual Movement: Severe Impairment Oral Phase Residue: Severe Impairment The patient demonstrates an open-mouth posture at rest. Once a teaspoon is presented by the clinician, the patient demonstrates a tongue thrusting behavior and displays difficulty with removal of the bolus material from the utensil. Once removal occurs, immediate anterior spillage (moderate) is present, bilaterally (past mid-chin). The patient continues tongue thrusting behavior, attempting to transfer the bolus posterior in the oral cavity. The bolus displays lateral spill to the bilaterally, inferior buccal spaces and posterior spill to the pyriform sinuses. A large amount of residual material is visualized on the lingual surface, in the bilateral buccal surfaces and in the oral cavity following posterior transfer to the pharynx. Pharyngeal Phase Swallow Response: Severe Impairment Base of Tongue: Moderate Impairment Epiglottic Movement: Moderate Impairment Laryngeal Elevation: Moderate Impairment Vallecular Residue: Moderate Pharyngeal Wall Residue: Moderate Piriform Sinus Residue: Moderate Laryngeal Penetration: Moderate Aspiration Observations: Severe Other Pharyngeal Observations: The patient displays a severe delay in the pharyngeal onset of the swallow, as the bolus material reaches and remains in the pyriform sinuses. The patient attempts initiation of the pharyngeal swallow, as a "bobbing" and tilting behavior is displayed of the laryngeal unit. Throughout attempts, the bolus material from the pyriform sinuses flows into the laryngeal vestibule through the posterior region, displaying deep laryngeal penetration (to the true vocal cords) following the swallow. Reduced hyo-laryngeal excursion and laryngeal elevation were present resulting in delayed and intermittently absent epiglottic inversion. Upon initiation of the swallow, subsequent gross, silent aspiration is visualized during the swallow of the honey-thick liquid. The patient does not display a protective response to the aspiration and is unable to follow theclinician's verbal cues or direct modeling attempts to elicit a cough. A moderate decrease is present in base of tongue retraction and pharyngeal contraction during the swallow resulting in moderate pharyngeal residue following the swallow. Performed-A/P View Not Applicable/Performed Summary/Impressions Oral Phase Impression: Severe Impairment The patient displayed severe oropharyngeal dysphagia characterized by severely decreased oral and lingual coordination, a moderately delayed pharyngeal swallow response, decreased laryngeal elevation, reduced hyo-laryngeal excursion, poor airway protection in the presence of bolus material, diminished laryngeal sensation in the presence of bolus material, decreased base of tongue retraction and reduced pharyngeal contraction. Deep laryngeal penetration occurred prior to the swallow with honey-thick liquids with subsequent, gross SILENT aspiration during the swallow with honey- thick liquids. Recommendations: - The patient should remain NPO. - Frequent and excellent oral care to reduce the transfer of oral bacteria to the lungs should aspiration of secretions occur. - Consider long-term alternatives for nutrition, hydration, and medication (PEG). - Speech pathology to sign off as the patient is not appropriate for skilled speech pathology services. Speech Short Term Goals Short Term Goals Short Term Goals 1. The patient and staff will display 90% accuracy with safe swallowing strategies, independently. Speech Pulmonology Physician Goals Pulmonology Physician Goals 1. The patient will tolerate the least restrictive diet consistency without the presence of s/s of suspected aspiration with 90% accuracy. Speech-Plan Treatment Plan Speech Therapy Treatment Plan: Discontinue ST The patient is not appropriate for skilled speech pathology at this time. Speech pathology will discharge the patient from skilled services. Frequency: 1 time per week Estimated Hrs Per Day: .25 hour per day Rehab Potential: Poor Safety Risks/Education Teaching Recipient: Patient Teaching Methods: Discussion, Audiovisual Response to Teaching: Unable to Comprehend Education Topics Provided: Results and Recommendations of the Modified Barium Swallow Assessment Time Speech Therapy Time In: 10:00 Speech Therapy Time Out: 10:30 Total Billed Time: 30 Billed Treatment Time 1, MARCELLA MK NAVARRO Jun 23, 2021 13:36
[2021-06-24] VITALS (19 sets, daily range): BP systolic 86–135; BP diastolic 50–97
[2021-06-24] MEDS: ceFAZolin 2 GM IV Premixed 50 ML IV SCH ×3 (02:27→18:40)
[2021-06-24] MEDS: D5 1/2 NS W/KCL 20 MEQ/L 1,000 ML IV SCH (03:41)
[2021-06-24 06:25] LABS: BASOPHILS # (AUTO) 0.1 10^3/uL (0.0-0.1); BASOPHILS % (AUTO) 1 % (0-10); EOSINOPHILS # (AUTO) 0.2 10^3/uL (0.0-0.3); EOSINOPHILS % (AUTO) 1 % (0-10); HEMATOCRIT 28 % (35-52); HEMOGLOBIN 9.1 g/dL (11.5-16.0); LYMPHOCYTES # (AUTO) 1.3 10^3/uL (1.0-4.0); LYMPHOCYTES % (AUTO) 10 % (12-44); MEAN CORPUSCULAR HEMOGLOBIN 32 pg (25-34); MEAN CORPUSCULAR HGB CONC 33 g/dL (32-36); MEAN CORPUSCULAR VOLUME 95 fL (80-99); MEAN PLATELET VOLUME 10.5 fL (9.0-12.2); MONOCYTES # (AUTO) 0.9 10^3/uL (0.0-1.0); MONOCYTES % (AUTO) 7 % (0-12); NEUTROPHILS # (AUTO) 10.5 10^3/uL (1.8-7.8); NEUTROPHILS % (AUTO) 79 % (42-75); PLATELET COUNT 480 10^3/uL (130-400); WHITE BLOOD COUNT 13.2 10^3/uL (4.3-11.0)
[2021-06-24 06:33] LABS: ALBUMIN 2.4 GM/DL (3.2-4.5); POTASSIUM 4.5 MMOL/L (3.6-5.0)
[2021-06-24 06:35] LABS: CALCIUM 8.2 MG/DL (8.5-10.1)
[2021-06-24 06:36] LABS: TOTAL PROTEIN 5.1 GM/DL (6.4-8.2)
[2021-06-24 06:38] LABS: BILIRUBIN,TOTAL 0.3 MG/DL (0.1-1.0)
[2021-06-24 06:39] LABS: CREATININE SERUM 0.8 MG/DL (0.60-1.30)
[2021-06-24] MEDS: RT-ALBUTEROL SULF 2.5 MG/3 ML PRE-MIX VIAL INH SCH ×3 (07:43→21:26)
[2021-06-24] MEDS: SENNOSIDES 8.6 MG (SENOKOT) TAB PO SCH ×2 (08:34→22:36)
[2021-06-24] MEDS: DOCUSATE SODIUM 100 MG (COLACE) CAP PO SCH ×2 (08:34→22:35)
[2021-06-24] MEDS: ENOXAPARIN 30 MG/0.3 ML (LOVENOX) SYR SC SCH (09:41)
[2021-06-24] MEDS: IRON SUCROSE 200 MG/10 ML (VENOFER) VIAL IV SCH (09:41)
--- NOTE | 2021-06-24 09:46 | Progress Note - Hospitalist ---
Subjective HPI/CC On Admission Date Seen by Provider: Jun 24, 2021 Time Seen by Provider: 08:40 CC: right hip fracture HPI: 66 yr old WF intellectually delayed individual who lives in a long term. She presented with a right hip fracture. She hadn't been eating or drinking for a few days. Labs revealed dehydration. She was assessed in the ER and found to have a right hip fracture due to favoring that leg and wouldn't walk like she usually does. She had an uneventful hip fracture repair by Dr. Batista. IV fluids maintained with good resolution of hypernatremia. Subjective/Events-last exam She is restless and appears uncomfortable. She is trying to pull at her IV. There is a nurse aide at her bedside. Objective Exam Vital Signs Vital Signs Date Time Temp Pulse Resp B/P (MAP) Pulse Ox O2 Delivery O2 Flow Rate FiO2 06/24/21 08:00 37.0 68 18 114/68 (83) 93 Nasal Cannula 2.00 Capillary Refill : Less Than 3 Seconds General Appearance: Chronically ill, Mild Distress (uncomfortable, restless), Thin Respiratory: No Respiratory Distress, Rhonci Cardiovascular: Regular Rate, Rhythm, No Edema, No Murmur Gastrointestinal: Normal Bowel Sounds, Soft Extremity: Normal Inspection, No Pedal Edema Neurologic/Psychiatric: Alert, Aphasia, Disoriented Skin: Warm/Dry, Pallor Results/Procedures Lab Laboratory Tests 06/24/21 05:00 Patient resulted labs reviewed. Imaging: Reviewed Imaging Report Assessment/Plan Assessment and Plan Assess & Plan/Chief Complaint Dysphagia Goals of care discussion Modified barium swallow consistent with aspiration NPO Discussed PEG placement for tube feeding vs hospice care with her guardian DPWENCESLAO plans to make decision today Hip fracture Ortho following s/p surgical repair 06/17 Pain regimen Bowel regimen PT/OT Postoperative anemia due to acute blood loss s/p 1 unit PRBC Hgb stable Monitor Possible Staph capitis bacteremia Continue Ancef Cognitive impairment Social work consulted Guardian in place, Cristina Washington [phone] DVT prophylaxis: Lovenox Diagnosis/Problems Diagnosis/Problems (1) Closed right hip fracture Status: Acute (2) Anemia Status: Acute (3) Dysphagia Status: Acute (4) Mental disability Status: Chronic Clinical Quality Measures DVT/VTE Risk/Contraindication: Contraindications-Pharm: Other *list below* Other: OR HEBER ÁLVAREZ MD Jun 24, 2021 09:46
--- NOTE | 2021-06-24 10:50 | Consultation - Surgery ---
DAHLIA PAYTON 06/24/21 1050: History of Present Illness History of Present Illness Patient Consulted On(astrid/time) 06/24/21 10:43 Date Seen by Provider: Jun 24, 2021 Time Seen by Provider: 10:40 History of Present Illness Pt is unable to communicate at baseline. HPI obtained from previous notes. A 66 yo mentally disabled female presented to the ER on 06/16 after being seen at Dr. Arellano office which showed abnormal lab values. The past few days before she was having decreased activity and poor oral intake. In the ER they also found a Right hip fracture which was operated on 06/17 without any complications from that surgery. She continues to have poor oral intake since admitted with abnormal lab values including decreased hemoglobin levels and increased WBC. DP OA will decide if peg tube is the best option for this patient in order to obtain adequate nutrition. Allergies and Home Medications Allergies Coded Allergies: No Known Drug Allergies (Unverified , 10/26/16) Patient Home Medication List Acetaminophen (Tylenol) 325 Mg Tablet, 650 MG PO Q4H PRN for PAIN-MILD (1-4), (Reported) Entered as Reported by: CASI SALCIDO on 06/17/211348 Last Action: Reviewed Calcium Carbonate/Vitamin D3 (Oyster Shell Calcium-Vit D Tab) 1 Each Tablet, 1 EA PO BID, (Reported) Entered as Reported by: CASI SALCIDO on 06/17/21 134 Last Action: Reviewed Cetirizine HCl (Cetirizine HCl) 10 Mg Tablet, 10 MG PO 1700, (Reported) Entered as Reported by: MARCUS GONZALEZ on 10/26/16 1231 Last Action: Reviewed Diclofenac Sodium/Misoprostol (Diclofenac-Misoprost 50-0.2 Tb) 1 Each Tab.ir.dr, 1 EACH PO BID PRN for PAIN/INFLAMMATION, (Reported) Entered as Reported by: CASI SALCIDO on 06/17/21 1406 Last Action: Reviewed Divalproex Sodium (Divalproex Sodium) 125 Mg Cap.sprink, 125 MG PO HS, (Reported) Entered as Reported by: CASI SALICDO on 06/17/21 1349 Last Action: Reviewed Divalproex Sodium (Divalproex Sodium) 125 Mg Cap.sprink, 250 MG PO 0800,1700, (Reported) Entered as Reported by: CASI SALCIDO on 06/17/211348 Last Action: Reviewed Fexofenadine HCl (Fexofenadine HCl) 180 Mg Tablet, 180 MG PO HS, (Reported) Entered as Reported by: CASI SALCIDO on 06/17/211348 Last Action: Reviewed Melatonin (Melatonin) 3 Mg Tablet, 3 MG PO HS, (Reported) Entered as Reported by: CASI SALCIDO on 06/17/211348 Last Action: Reviewed Nystatin (Nystatin) 1 Each Powder.ea., 1 EACH MC BID PRN for RASH, (Reported) Entered as Reported by: CASI SALCIDO on 06/17/21 140 Last Action: Reviewed Vitamin B Complex (Vitamin B Complex) 1 Each Tablet, 1 EACH PO DAILY, (Reported) Entered as Reported by: CASI SALCIDO on 06/17/211348 Last Action: Reviewed Discontinued Medications Calcium Carbonate/Vitamin D3 (Calcium + Vitamin D Tablet) 1 Each Tablet, 1 EACH PO BID, (Reported) Discontinued Reason: No Longer Taking Entered as Reported by: CASI SALCIDO on 06/17/211348 Last Action: Discontinued Divalproex Sodium (Depakote) 500 Mg Tablet., Unknown Dose PO, (Reported) Discontinued Reason: Prescription changed Entered as Reported by: MARCUS GONZALEZ on 10/26/16 1231 Hydrocodone/Acetaminophen (Hydrocodone/Acetaminophen 5 MG/325 MG TAB) 1 Each Tablet, 1 EACH PO Q4H PRN for PAIN-SEVERE Discontinued Reason: No Longer Taking Prescribed by: SRINIVAS LEONARD on 10/26/16 1243 Last Action: Discontinued Vit B Comp/C/FA/Iron/Vit E (Vitamin B Complex Tablet) 1 Each Tablet, 1 EACH PO, (Reported) Discontinued Reason: No Longer Taking Entered as Reported by: MARCUS GONZALEZ on 10/26/16 1231 Last Action: Discontinued Past Jcwwouq-Yuzlua-Vdkqsp Hx Patient Social History Smoking Status: Never a Smoker Recent Hopitalizations: No Alcohol Use?: No Have you traveled recently?: No Immunizations Up To Date Tetanus Booster (TDap): Unknown Seasonal Allergies Seasonal Allergies: Yes Surgeries History of Surgeries: Yes (BILATERAL HIP PAIN) Surgeries: Orthopedic Respiratory History of Respiratory Disorde: No Cardiovascular History of Cardiac Disorders: No Neurological History of Neurological Disord: No Neurological Disorders: Developmental Disorder Genitourinary History of Genitourinary Disor: No Gastrointestinal History of Gastrointestinal Di: No Musculoskeletal History of Musculoskeletal Dis: No Endocrine History of Endocrine Disorders: No HEENT History of HEENT Disorders: No Cancer History of Cancer: No Psychosocial History of Psychiatric Problem: No Integumentary History of Skin or Integumenta: No Blood Transfusions History of Blood Disorders: No Review of Systems-General ROS-Unable to Obtain: nonverbal at baseline with mental retardation Physical Exam-General Problems Physical Exam Vital Signs Vital Signs - First Documented 06/18/21 06/18/21 06/18/21 00:02 08:00 09:24 Temp 36.7 Pulse 77 Resp 18 B/P (MAP) 100/64 (76) Pulse Ox 91 O2 Delivery Room Air O2 Flow Rate 0.00 Capillary Refill : Less Than 3 Seconds General Appearance: cachetic, thin Respiratory: decreased breath sounds; No wheezing Cardiovascular: No regular rate, rhythm, No tachycardia Gastrointestinal: No distended; other (thin) Extremities: No no pedal edema; other (thin, with muscle loss ) Neurologic/Psychiatric: No alert, No oriented x 3 Skin: other (hands covered to prevent pulling of IV lines) Data Review Labs Laboratory Tests 06/24/21 05:00: White Blood Count 13.2H, Red Blood Count 2.89L, Hemoglobin 9.1L, Hematocrit 28L, Mean Corpuscular Volume 95, Mean Corpuscular Hemoglobin 32, Mean Corpuscular Hemoglobin Concent 33, Red Cell Distribution Width 17.1H, Platelet Count 480H, Mean Platelet Volume 10.5, Immature Granulocyte % (Auto) 2, Neutrophils (%) (Auto) 79H, Lymphocytes (%) (Auto) 10L, Monocytes (%) (Auto) 7, Eosinophils (%) (Auto) 1, Basophils (%) (Auto) 1, Neutrophils # (Auto) 10.5H, Lymphocytes # (Auto) 1.3, Monocytes # (Auto) 0.9, Eosinophils # (Auto) 0.2, Basophils # (Auto) 0.1, Immature Granulocyte # (Auto) 0.3H, Sodium Level 135, Potassium Level 4.5, Chloride Level 110H, Carbon Dioxide Level 18L, Anion Gap 7, Blood Urea Nitrogen 14, Creatinine 0.80, Estimat Glomerular Filtration Rate 82, BUN/Creatinine Ratio 18, Glucose Level 91, Calcium Level 8.2L, Corrected Calcium 9.5, Total Bilirubin 0.3, Aspartate Amino Transf (AST/SGOT) 26, Alanine Aminotransferase (ALT/SGPT) 12, Alkaline Phosphatase 123, Total Protein 5.1L, Albumin 2.4L Microbiology 06/16/21 MRSA Screen - Final, Complete MRSA not isolated 06/16/21 Urine Culture - Final, Complete NO GROWTH 06/16/21 Blood Culture - Final, Complete Staphylococcus capitis Assessment/Plan Assessment/Plan Assessment/Plan Goals of care discussion Modified barium swallow consistent with aspiration, NPO Discussed PEG placement for tube feeding vs hospice care with her guardian DPOA plans to make decision today Hip fracture Ortho following, s/p surgical repair 06/17 Anemia Transfused 1 unit on 06/20, repeat CBC Guardian in place, Cristina [place] [phone] Clinical Quality Measures DVT/VTE Risk/Contraindication: Contraindications-Pharm: Other *list below* Other: OR ALMA MANZO DO 06/24/21 1112: History of Present Illness History of Present Illness Time Seen by Provider: 10:58 History of Present Illness Surgery asked to consult regarding PEG tube. HPI: pt is mentally disabled pt from a [facility], admitted with decreasing activity and poor oral intake. She was found to have a righ hip fx and subsequently had that repaired. According to hospitalist pt has been unable to eat for the past 3 days. Pt is non-communicative. Allergies and Home Medications Allergies Coded Allergies: No Known Drug Allergies (Unverified , 10/26/16) Patient Home Medication List Home Medication List Reviewed: Yes Acetaminophen (Tylenol) 325 Mg Tablet, 650 MG PO Q4H PRN for PAIN-MILD (1-4), (Reported) Entered as Reported by: CASI SALCIDO on 06/17/21 1349 Last Action: Reviewed Calcium Carbonate/Vitamin D3 (Oyster Shell Calcium-Vit D Tab) 1 Each Tablet, 1 EA PO BID, (Reported) Entered as Reported by: CASI SALCIDO on 06/17/21 1349 Last Action: Reviewed Cetirizine HCl (Cetirizine HCl) 10 Mg Tablet, 10 MG PO 1700, (Reported) Entered as Reported by: MARCUS GONZALEZ on 10/26/16 1231 Last Action: Reviewed Diclofenac Sodium/Misoprostol (Diclofenac-Misoprost 50-0.2 Tb) 1 Each Tab.ir.dr, 1 EACH PO BID PRN for PAIN/INFLAMMATION, (Reported) Entered as Reported by: CASI SALCIDO on 06/17/211405 Last Action: Reviewed Divalproex Sodium (Divalproex Sodium) 125 Mg Cap.sprink, 125 MG PO HS, (Reported) Entered as Reported by: CASI SALCIDO on 06/17/211348 Last Action: Reviewed Divalproex Sodium (Divalproex Sodium) 125 Mg Cap.sprink, 250 MG PO 0800,1700, (Reported) Entered as Reported by: CASI SALCIDO on 06/17/211348 Last Action: Reviewed Fexofenadine HCl (Fexofenadine HCl) 180 Mg Tablet, 180 MG PO HS, (Reported) Entered as Reported by: CASI SALCIDO on 06/17/211348 Last Action: Reviewed Melatonin (Melatonin) 3 Mg Tablet, 3 MG PO HS, (Reported) Entered as Reported by: CASI SALCIDO on 06/17/211348 Last Action: Reviewed Nystatin (Nystatin) 1 Each Powder.ea., 1 EACH MC BID PRN for RASH, (Reported) Entered as Reported by: CASI SALCIDO on 06/17/211405 Last Action: Reviewed Vitamin B Complex (Vitamin B Complex) 1 Each Tablet, 1 EACH PO DAILY, (Reported) Entered as Reported by: CASI SALCIDO on 06/17/211348 Last Action: Reviewed Discontinued Medications Calcium Carbonate/Vitamin D3 (Calcium + Vitamin D Tablet) 1 Each Tablet, 1 EACH PO BID, (Reported) Discontinued Reason: No Longer Taking Entered as Reported by: CASI SALCIDO on 06/17/211348 Last Action: Discontinued Divalproex Sodium (Depakote) 500 Mg Tablet., Unknown Dose PO, (Reported) Discontinued Reason: Prescription changed Entered as Reported by: MARCUS GONZALEZ on 10/26/16 1231 Hydrocodone/Acetaminophen (Hydrocodone/Acetaminophen 5 MG/325 MG TAB) 1 Each Tablet, 1 EACH PO Q4H PRN for PAIN-SEVERE Discontinued Reason: No Longer Taking Prescribed by: SRINIVAS LEONARD on 10/26/16 1243 Last Action: Discontinued Vit B Comp/C/FA/Iron/Vit E (Vitamin B Complex Tablet) 1 Each Tablet, 1 EACH PO, (Reported) Discontinued Reason: No Longer Taking Entered as Reported by: MARCUS M LISA on 10/26/16 1231 Last Action: Discontinued Past Qlpcedf-Qnputc-Fmkdzz Hx Patient Social History Smoking Status: Never a Smoker Surgeries History of Surgeries: Yes Surgeries: Orthopedic Neurological History of Neurological Disord: Yes Neurological Disorders: Developmental Disorder Musculoskeletal History of Musculoskeletal Dis: Yes Musculoskeletal Disorders: Fractures Family Medical History Significant Family History: No Pertinent Family Hx Review of Systems-General ROS-Unable to Obtain: pt non-verbal Physical Exam-General Problems Physical Exam General Appearance: cachetic, thin HEENT: pharynx normal; No scleral icterus (R), No scleral icterus (L); other (edentulous) Respiratory: no respiratory distress, no accessory muscle use, decreased breath sounds; No wheezing Cardiovascular: regular rate, rhythm, no murmur Gastrointestinal: non tender, soft; No distended Extremities: no pedal edema, other (muscle wasting) Neurologic/Psychiatric: No alert, No oriented x 3 Skin: other (hands covered to prevent pulling of IV lines) Assessment/Plan Assessment/Plan Assessment/Plan Goals of care discussion Modified barium swallow consistent with aspiration, NPO Hospitalist Discussed PEG placement for tube feeding vs hospice care with her guardian I spoke with DPOA and she wants to proceed with PEG tube. I went over risks and complications not limited to pain, bleeding, infection, scar, damage to bowel or esophagus and need for further procedure. All questions answered Hip fracture Ortho s/p surgical repair 06/17 Anemia Transfused 1 unit on 06/20, repeat CBC Guardian in place, Cristina Felix [phone] Supervisory-Addendum Brief Verification & Attestation Participated in pt care: history, MDM, physical Personally performed: exam, history, MDM, supervision of care Care discussed with: Medical Student Procedures: n/a Verification and Attestation of Medical Student E/M Service A medical student performed and documented this service. I then reviewed and verified all information documented by the medical student and made modifications to such information, when appropriate. I personally performed a physical exam, medical decision making and then discussed any differences between the notes and made revisions as necessary to create one note. Alma Manzo , 06/24/21 , 11:15 DAHLIA PAYTON Jun 24, 2021 10:50 ALMA MANZO DO Jun 24, 2021 11:12
[2021-06-24] MEDS ORDERED: LACTATED RINGERS 1,000 ML IV ONE (11:44)
[2021-06-24] MEDS ORDERED: proPOfol 200 MG/20 ML (DIPRIVAN) VIAL IV ONE (11:47)
[2021-06-24] MEDS ORDERED: KETAMINE 50 MG/5 ML SYRINGE ONE (11:47)
[2021-06-24] MEDS ORDERED: MIDAZOLAM 2 MG/2 ML (VERSED) VIAL ONE (11:47)
--- NOTE | 2021-06-24 11:59 | Physical Therapy Progress Note ---
Therapy Progress Note Patient on Hold due to surgery. PT to resume in CORINNA Castillo PT Jun 24, 2021 11:59
--- NOTE | 2021-06-24 12:13 | Progress Note-Post Operative ---
Post-Operative Progess Note Surgeon (s)/Press Operator (s) Surgeon ALMA MANZO DO Press Operator: none Pre-Operative Diagnosis Malnutrition, inability to take PO Post-Operative Diagnosis same Procedure & Operative Findings Date of Procedure 06/24/21 Procedure Performed/Findings PEG tube placement Anesthesia Type IV sedation by DIGITAL ENGINEER Estimated Blood Loss Estimated blood loss (mL): scant Specimens/Packing Specimens Removed none ALMA MANZO DO Jun 24, 2021 12:13
[2021-06-24] MEDS ORDERED: LACTATED RINGERS 1,000 ML IV STA (12:16)
[2021-06-24] MEDS ORDERED: HURRICAINE EXT TUBE (BENZOCAINE) XX PRN (12:30)
--- NOTE | 2021-06-24 12:59 | OPERATIVE REPORT ---
DATE OF SERVICE: 06/24/2021 PREOPERATIVE DIAGNOSES: Malnutrition, inability to swallow. POSTOPERATIVE DIAGNOSES: Malnutrition, inability to swallow. PROCEDURE: PEG tube placement. SURGEON: Julio Romo DO HEALTH CARE LEGAL ASSISTANT: None. ANESTHESIA: IV sedation by the CHILDREN'S TUTOR. SPECIMENS: None. BLOOD LOSS: Scant. FLUIDS: Per anesthesia. POSTOPERATIVE CONDITION: Stable. INDICATION FOR PROCEDURE: The patient is a 66-year-old female with some mental disability. She has been unable to swallow, found to have aspiration when she attempts p.o. intake, may have had some aspiration pneumonia and needed a PEG tube for nutrition. FINDINGS: The patient had a PEG tube placed without difficulty. PROCEDURE NOTE: After informed consent was obtained, the patient was brought to the endoscopy suite, placed in bed in the supine position. Dr. Harvey performed an EGD to insufflate the stomach and then could see the light on the stomach wall, pushed on this area, could see the stomach push in. I then sterilely prepped and draped this area in normal fashion. Local lidocaine was used to infiltrate the skin and then made a small stab incision with #11 blade, then advanced the needle through the abdominal wall into the stomach. Dr. Harvey watched the needle come in; I then advanced a guidewire through this needle. He grabbed the wire with a snare and pulled this completely out. We attached the PEG tube and then I gently pulled the guidewire and pulled this PEG tube all the way in and through the esophagus down into the stomach. Dr. Harvey followed it down. It was in good position. I then attached the bolster, put some Betadine around the abdominal wall and then a 2 x 2 drain sponge and then attached the bolster was about at 3 cm little bit less, easily spun and at this point then cut off the distal portion and attached to the clamp as well as the ports to give fluids and medications through. Area was cleaned and dried, dressing placed. The patient tolerated the procedure. She was recovered in the endoscopy suite. Job ID: [id number] DocumentID: [id number] Dictated Date: 06/24/2021 12:12:02 Emergency Medicine Specialist Date: 06/24/2021 12:57:46 Dictated By: JULIO ROMO DO [facility]
[2021-06-24 13:37] LABS: ABG BASE EXCESS -4.7 MMOL/L (-2.5-2.5); ABG OXYGEN SATURATION 99 % (94-100); ABG PCO2 36 MMHG (35-45); ABG PH 7.36 (7.37-7.43); ABG PO2 153 MMHG (79-93); ABG TCO2 21.1 MMOL/L (21.0-31.0)
[2021-06-24 13:38] LABS: ALLENS TEST POSITIVE; INSPIRED O2 90%; PATIENT TEMP 36.3; VENTILATOR NO
--- NOTE | 2021-06-24 15:14 | Tele-ICU Progress Note ---
Subjective Date Seen by a Provider: Jun 24, 2021 Time Seen by a Provider: 15:14 Sepsis Event Evaluation Height, Weight, BMI Height: 5'0" Weight: 96lbs. oz. 43.357848kw; 15.00 BMI Method:Stated Exam Exam Patient acknowledged, consented, and participated in this virtual visit which was conducted using real time audio/video Vital Signs Date Time Temp Pulse Resp B/P (MAP) Pulse Ox O2 Delivery O2 Flow Rate FiO2 06/24/21 14:06 83 06/24/21 14:00 91 35 116/76 (89) 99 NIV Bilevel 70.00 06/24/21 13:53 75 26 98 70.00 06/24/21 13:45 76 24 86/71 (76) 98 Nasal Cannula 2.00 06/24/21 13:05 83 26 95 90.00 06/24/21 12:15 101 22 93 OxyMask 5 06/24/21 12:10 100 22 94 OxyMask 10 06/24/21 12:05 94 22 94 OxyMask 10 06/24/21 08:00 37.0 68 18 114/68 (83) 93 Nasal Cannula 2.00 06/24/21 08:00 Nasal Cannula 2.00 06/24/21 07:43 93 Nasal Cannula 2.00 06/24/21 03:21 37.0 66 20 135/64 (87) 100 Nasal Cannula 3.00 06/23/21 23:51 37.3 68 20 139/67 (91) 94 Nasal Cannula 3.00 06/23/21 20:54 94 Nasal Cannula 2.00 06/23/21 19:48 92 Nasal Cannula 3.00 06/23/21 19:35 37.0 77 22 110/73 (85) 92 Nasal Cannula 3.00 I & O 06/24/21 06:59 Intake Total 1050 ml Balance 1050 ml Height & Weight Height: 5'0" Weight: 96lbs. oz. 43.551290ky; 15.00 BMI Method:Stated General Appearance: Chronically ill, Mild Distress (uncomfortable, restless), Thin HEENT: PERRL/EOMI, Pharynx Normal, Moist Mucous Membranes Neck: Full Range of Motion, Normal Inspection, Non Tender, Supple Respiratory: No Respiratory Distress, Rhonci Cardiovascular: Regular Rate, Rhythm, No Edema, No Murmur Capillary Refill: Less Than 3 Seconds Gastrointestinal: non tender, soft; No distended Extremity: Normal Inspection, No Pedal Edema Neurologic/Psychiatric: Alert, Aphasia, Disoriented Skin: Warm/Dry, Pallor Results Lab Laboratory Tests 06/23/21 05:42 06/24/21 05:00 Assessment/Plan Assessment/Plan (Tele-ICU Physician , consultation) Available chart/ vitals / labs / Images reviewed ROS as per chart and RN report Now in ICU, hemodynamically stable Video assessment done using teleICU camera, rest of exam as per RN Discussed with RN. Consultants: sx Hospital course: A/P Acute resp failure post PEG tube placement 06/24 - ? aspiration - will cont NIPPB - hold opioids - check cxr Possible PNA - follow vitals amd PCT - ? 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 Discussed with RN to reach out if any questions or concerns A total of 33 minutes of critical care time was devoted to this patient today, required to treat and/or prevent further deterioration of critical care condition ( as above SOMMER PEREZ MD Jun 24, 2021 15:14
--- NOTE | 2021-06-24 15:20 | Diagnostic Imaging Report ---
INDICATION: Hypoxia. COMPARISON: 06/19/2021. EXAMINATION: Single view of the chest. FINDINGS: Infiltrate in the right upper lobe and left base. There is a new left-sided effusion with dependent atelectasis. There is a 20% pneumothorax on the left. The heart is normal in size. Osseous structures are stable. IMPRESSION: 1. New left-sided pneumothorax without mediastinal shift. 2. New infiltrate in right upper lobe and left base. 3. New small left-sided effusion. Critical findings. Report was called and faxed to the office of Dr. Llanos at 3:13 p.m., by vincent. Report was also faxed to Dr. Alcazar. Dictated by: Dictated on workstation # [id number]
[2021-06-24 15:44] LABS: BASOPHILS # (AUTO) 0.1 10^3/uL (0.0-0.1); BASOPHILS % (AUTO) 1 % (0-10); EOSINOPHILS # (AUTO) 0.1 10^3/uL (0.0-0.3); EOSINOPHILS % (AUTO) 1 % (0-10); HEMATOCRIT 32 % (35-52); HEMOGLOBIN 10.5 g/dL (11.5-16.0); LYMPHOCYTES # (AUTO) 1.2 10^3/uL (1.0-4.0); LYMPHOCYTES % (AUTO) 8 % (12-44); MEAN CORPUSCULAR HEMOGLOBIN 31 pg (25-34); MEAN CORPUSCULAR HGB CONC 33 g/dL (32-36); MEAN CORPUSCULAR VOLUME 96 fL (80-99); MEAN PLATELET VOLUME 9.8 fL (9.0-12.2); MONOCYTES # (AUTO) 0.3 10^3/uL (0.0-1.0); MONOCYTES % (AUTO) 2 % (0-12); NEUTROPHILS # (AUTO) 12.6 10^3/uL (1.8-7.8); NEUTROPHILS % (AUTO) 86 % (42-75); PLATELET COUNT 530 10^3/uL (130-400); WHITE BLOOD COUNT 14.7 10^3/uL (4.3-11.0)
[2021-06-24] MEDS ORDERED: LIDOCAINE 1% INJ 20 ML VIAL ONE (15:49)
[2021-06-24 15:55] LABS: BAND NEUTROPHILS 5 %; EOSINOPHILS % (MANUAL) 2 %; LYMPHOCYTES % (MANUAL) 7 %; MONOCYTES % (MANUAL) 4 %; NEUTROPHILS % (MANUAL) 82 %
[2021-06-24 15:56] LABS: ANISOCYTOSIS SLIGHT
[2021-06-24] MEDS ORDERED: PIPERACILLIN SODIUM/TAZOBACTAM 4.5 GM in NS (IVPB) 100 ML IV NR (16:00)
--- NOTE | 2021-06-24 16:28 | Diagnostic Imaging Report ---
INDICATION: Catheter placement. ____ event catheter projects over left upper chest with evacuation of the previous left pneumothorax. There is improved expansion of the left lower lung. Patchy multifocal nodular opacities redemonstrated. IMPRESSION: Successful evacuation of left pneumothorax post chest tube placement with improved left lower lung expansion and no adverse development. Dictated by: Dictated on workstation # [id number]
--- NOTE | 2021-06-24 19:06 | Progress Note-Post Operative ---
Post-Operative Progess Note Surgeon (s)/Automotive Upholsterer (s) Surgeon ALMA MANZO DO Automotive Upholsterer: none Pre-Operative Diagnosis Spontaneous PTX, Pleural effusion Post-Operative Diagnosis same Procedure & Operative Findings Date of Procedure 06/24/21 Procedure Performed/Findings Insertion of chest tube, Thoravent Anesthesia Type local lidocaine Estimated Blood Loss Estimated blood loss (mL): scant Specimens/Packing Specimens Removed appx 350ml or pleural fluid, serosanguinous Packing: dict #[id number] ALMA MANZO DO Jun 24, 2021 19:06
[2021-06-24] MEDS: PIPERACILLIN SODIUM/TAZOBACTAM 4.5 GM in NS (IVPB) 100 ML IV SCH (22:35)
[2021-06-25] VITALS (24 sets, daily range): BP systolic 84–118; BP diastolic 53–94
--- NOTE | 2021-06-25 00:30 | OPERATIVE REPORT ---
DATE OF SERVICE: 06/24/2021 PREOPERATIVE DIAGNOSES: Spontaneous pneumothorax and pleural effusion. POSTOPERATIVE DIAGNOSES: Spontaneous pneumothorax and pleural effusion. PROCEDURE: Insertion of chest tube Thora-Vent. SURGEON: Julio Romo DO TELEVISION CAMERA OPERATOR: None. ANESTHESIA: Local lidocaine. BLOOD LOSS: Scant. SPECIMENS: Approximately 350 mL of pleural fluid serosanguineous. POSTOPERATIVE CONDITION: Stable. INDICATION FOR PROCEDURE: The patient is a 66-year-old female who had a PEG tube placed today. She started having trouble breathing, became hypoxic, transferred to ICU and a chest x-ray performed, which showed a 20% pneumothorax with pleural effusion. Consent obtained from the DPOA. FINDINGS: The patient had a Thora-Vent placed left anterior chest wall and approximately 350 mL of serosanguineous fluid was removed. PROCEDURE NOTE: After informed consent was obtained, the patient was in her bed in the ICU. She was sterilely prepped and draped in normal fashion. Local lidocaine was used to infiltrate the skin. Left anterior chest wall midclavicular line at about just over the 3rd rib infiltrated with local, then made a stab incision with 11 blade and then advanced the Thora-Vent trocar gently down to the rib and then just over the top of the rib and gently entered the pleural cavity, felt to go in gently and then easily advanced the catheter over this and placed a Thora-Vent on the chest, immediately got a rose of fluid into the Thora-Vent chamber, hooked up the suction where the one-way valve, was going to use this to suction out the pneumothorax, but started getting out serosanguineous fluid, looked like pink Kook-Aid, light pink Liu-Aid, suctioned out approximately just over 300 mL of this fluid, also getting out some air, then met resistance. At this point, elected to remove the one-way valve and hooked up suction and hooked this up through the suction through the Thora-Vent to a Pleur-evac container. There was no leak, when it was hooked up to container, got out about 20 more mL of fluid. Postoperative chest x-ray showed expansion of the lung. No more pneumothorax and decrease in the pleural effusion in the lung. It was secured in place. The patient tolerated the procedure. Sponge and needle count were correct at the end of the case. Job ID: [id number] DocumentID: [id number] Dictated Date: 06/24/2021 19:06:33 Polymer Chemist Date: 06/25/2021 00:29:44 Dictated By: JULIO ROMO DO
[2021-06-25] MEDS: ceFAZolin 2 GM IV Premixed 50 ML IV SCH (02:24)
[2021-06-25 04:21] LABS: BASOPHILS # (AUTO) 0.1 10^3/uL (0.0-0.1); BASOPHILS % (AUTO) 1 % (0-10); EOSINOPHILS # (AUTO) 0.1 10^3/uL (0.0-0.3); EOSINOPHILS % (AUTO) 1 % (0-10); HEMATOCRIT 28 % (35-52); HEMOGLOBIN 9.3 g/dL (11.5-16.0); LYMPHOCYTES # (AUTO) 1.3 10^3/uL (1.0-4.0); LYMPHOCYTES % (AUTO) 8 % (12-44); MEAN CORPUSCULAR HEMOGLOBIN 32 pg (25-34); MEAN CORPUSCULAR HGB CONC 33 g/dL (32-36); MEAN CORPUSCULAR VOLUME 96 fL (80-99); MEAN PLATELET VOLUME 10.3 fL (9.0-12.2); MONOCYTES # (AUTO) 0.5 10^3/uL (0.0-1.0); MONOCYTES % (AUTO) 3 % (0-12); NEUTROPHILS # (AUTO) 14.5 10^3/uL (1.8-7.8); NEUTROPHILS % (AUTO) 86 % (42-75); PLATELET COUNT 504 10^3/uL (130-400); WHITE BLOOD COUNT 16.9 10^3/uL (4.3-11.0)
[2021-06-25 04:35] LABS: ALBUMIN 2.4 GM/DL (3.2-4.5); POTASSIUM 3.9 MMOL/L (3.6-5.0)
[2021-06-25 04:36] LABS: CALCIUM 8.3 MG/DL (8.5-10.1)
[2021-06-25 04:38] LABS: TOTAL PROTEIN 5.3 GM/DL (6.4-8.2)
[2021-06-25 04:39] LABS: BILIRUBIN,TOTAL 0.5 MG/DL (0.1-1.0)
[2021-06-25 04:41] LABS: CREATININE SERUM 0.91 MG/DL (0.60-1.30)
[2021-06-25 05:56] LABS: PHOSPHORUS 2.5 MG/DL (2.3-4.7)
[2021-06-25 05:58] LABS: MAGNESIUM 1.5 MG/DL (1.6-2.4)
[2021-06-25] MEDS: KCL 20 MEQ TAB (K-DUR) PO SCH (07:06)
[2021-06-25] MEDS: PIPERACILLIN SODIUM/TAZOBACTAM 4.5 GM in NS (IVPB) 100 ML IV SCH ×3 (07:06→23:32)
[2021-06-25] MEDS: MAGNESIUM 1 GM/100 ML IVPB 100 ML IV SCH ×3 (07:06→19:59)
[2021-06-25] MEDS: POTASSIUM CL 10MEQ/50ML IVPB 50 ML IV SCH (07:06)
--- NOTE | 2021-06-25 07:27 | Physical Therapy Progress Note ---
Therapy Progress Note Patient was moved to ICU, will need new orders to continue PT when appropriate. CORINNA FERRER PT Jun 25, 2021 07:27
--- NOTE | 2021-06-25 08:13 | Progress Note - Surgery ---
DAHLIA PAYTON 06/25/21 0813: Subjective Date Seen by a Provider: Jun 25, 2021 Time Seen by a Provider: 08:00 Subjective/Events-last exam Pt has a mental disability and unable to respond at baseline. Review of Systems unable to obtain due to patient unable to respond Focused Exam Lactate Level 06/24/21 15:30: Lactic Acid Level 0.75 Objective Exam Vital Signs Date Time Temp Pulse Resp B/P (MAP) Pulse Ox O2 Delivery O2 Flow Rate FiO2 06/25/21 07:39 36.9 06/25/21 07:00 65 30 96/64 (75) 97 Nasal Cannula 2.00 06/25/21 07:00 73 06/25/21 06:00 66 19 104/65 (78) 99 Nasal Cannula 2.00 06/25/21 05:00 58 25 103/59 (74) 98 Nasal Cannula 2.00 06/25/21 04:00 36.4 06/25/21 04:00 Nasal Cannula 2.00 06/25/21 04:00 62 20 108/69 (82) 99 Nasal Cannula 2.00 06/25/21 03:00 73 28 90/59 (69) 99 Nasal Cannula 2.00 06/25/21 02:00 80 22 101/59 (73) 99 Nasal Cannula 2.00 06/25/21 01:00 67 26 100/74 (83) 98 Nasal Cannula 2.00 06/25/21 01:00 67 06/25/21 00:00 Nasal Cannula 2.00 06/25/21 00:00 36.4 06/25/21 00:00 68 24 99/71 (80) 97 Nasal Cannula 2.00 06/24/21 23:00 68 22 104/55 (71) 96 Nasal Cannula 2.00 06/24/21 22:00 72 20 103/68 (80) 94 Nasal Cannula 2.00 06/24/21 21:27 95 Nasal Cannula 2.00 06/24/21 21:00 86 28 103/54 (70) 97 Nasal Cannula 2.00 06/24/21 20:00 35.9 06/24/21 20:00 Nasal Cannula 2.00 06/24/21 20:00 69 28 103/77 (86) 94 Nasal Cannula 2.00 06/24/21 19:00 73 06/24/21 19:00 73 20 105/84 (91) 100 Nasal Cannula 2.00 06/24/21 18:42 Nasal Cannula 2.00 06/24/21 18:00 64 24 95/50 (65) 97 NIV Bilevel 70.00 06/24/21 17:00 73 19 125/97 (106) 100 NIV Bilevel 70.00 06/24/21 16:29 36.1 06/24/21 16:00 NIV Bilevel 50 06/24/21 16:00 74 15 110/69 (83) 97 NIV Bilevel 70.00 06/24/21 15:49 89 20 98 50.00 06/24/21 15:00 91 24 124/69 (87) 100 NIV Bilevel 70.00 06/24/21 14:30 36.4 06/24/21 14:06 83 06/24/21 14:00 91 35 116/76 (89) 99 NIV Bilevel 70.00 06/24/21 13:53 75 26 98 70.00 06/24/21 13:45 76 24 86/71 (76) 98 Nasal Cannula 2.00 06/24/21 13:40 NIV Bilevel 70 06/24/21 13:05 83 26 95 90.00 06/24/21 12:15 101 22 93 OxyMask 5 06/24/21 12:10 100 22 94 OxyMask 10 06/24/21 12:05 94 22 94 OxyMask 10 I & O 06/25/21 06:59 Intake Total 200 ml Output Total 366 ml Balance -166 ml Capillary Refill : Less Than 3 Seconds General Appearance: Chronically ill, Thin HEENT: PERRL/EOMI, Pharynx Normal Neck: Full Range of Motion, Non Tender, Supple Respiratory: No Respiratory Distress, Decreased Breath Sounds, Other (chest tube placement on left side ) Cardiovascular: Regular Rate, Rhythm, No Edema, No Murmur Gastrointestinal: non tender, soft; No distended; other (pet tube with mild erythema ) Extremity: Normal Inspection, No Pedal Edema Neurologic/Psychiatric: Aphasia, Disoriented Skin: Warm/Dry, Pallor Results Lab Laboratory Tests 06/24/21 11:30: Influenza Type A (RT-PCR) Not Detected, Influenza Type B (RT-PCR) Not Detected, SARS-CoV-2 RNA (RT-PCR) Not Detected 06/24/21 13:30: Blood Gas Puncture Site RIGHT RADIAL, Blood Gas Patient Temperature 36.3, Arterial Blood pH 7.36L, Arterial Blood Partial Pressure CO2 36, Arterial Blood Partial Pressure O2 153H, Arterial Blood HCO3 20L, Arterial Blood Total CO2 21.1, Arterial Blood Oxygen Saturation 99, Arterial Blood Base Excess -4.7L, Fab Test POSITIVE, Blood Gas Ventilator Setting NO, Blood Gas Inspired Oxygen 90% 06/24/21 15:30: White Blood Count 14.7H, Red Blood Count 3.35L, Hemoglobin 10.5L, Hematocrit 32L , Mean Corpuscular Volume 96, Mean Corpuscular Hemoglobin 31, Mean Corpuscular Hemoglobin Concent 33, Red Cell Distribution Width 17.0H, Platelet Count 530H, Mean Platelet Volume 9.8, Immature Granulocyte % (Auto) 2, Neutrophils (%) (Auto) 86H, Lymphocytes (%) (Auto) 8L, Monocytes (%) (Auto) 2, Eosinophils (%) (Auto) 1, Basophils (%) (Auto) 1, Neutrophils # (Auto) 12.6H, Lymphocytes # (Auto) 1.2, Monocytes # (Auto) 0.3, Eosinophils # (Auto) 0.1, Basophils # (Auto) 0.1, Immature Granulocyte # (Auto) 0.3H, Neutrophils % (Manual) 82, Lymphocytes % (Manual) 7, Monocytes % (Manual) 4, Eosinophils % (Manual) 2, Band Neutrophils 5, Anisocytosis SLIGHT, Lactic Acid Level 0.75, Procalcitonin 1.08H 06/25/21 03:23: White Blood Count 16.9H, Red Blood Count 2.95L, Hemoglobin 9.3L, Hematocrit 28L, Mean Corpuscular Volume 96, Mean Corpuscular Hemoglobin 32, Mean Corpuscular Hemoglobin Concent 33, Red Cell Distribution Width 17.0H, Platelet Count 504H, Mean Platelet Volume 10.3, Immature Granulocyte % (Auto) 3, Neutrophils (%) (Auto) 86H, Lymphocytes (%) (Auto) 8L, Monocytes (%) (Auto) 3, Eosinophils (%) (Auto) 1, Basophils (%) (Auto) 1, Neutrophils # (Auto) 14.5H, Lymphocytes # (Auto) 1.3, Monocytes # (Auto) 0.5, Eosinophils # (Auto) 0.1, Basophils # (Auto) 0.1, Immature Granulocyte # (Auto) 0.4H, Sodium Level 137, Potassium Level 3.9, Chloride Level 107, Carbon Dioxide Level 17L, Anion Gap 13, Blood Urea Nitrogen 13, Creatinine 0.91, Estimat Glomerular Filtration Rate 70, BUN/Creatinine Ratio 14, Glucose Level 62L, Calcium Level 8.3L, Corrected Calcium 9.6, Phosphorus Level 2.5, Magnesium Level 1.5L, Total Bilirubin 0.5, Aspartate Amino Transf (AST/SGOT) 27, Alanine Aminotransferase (ALT/SGPT) 8, Alkaline Phosphatase 137H, Total Protein 5.3L, Albumin 2.4L Microbiology 06/16/21 MRSA Screen - Final, Complete MRSA not isolated 06/16/21 Urine Culture - Final, Complete NO GROWTH 06/16/21 Blood Culture - Final, Complete Staphylococcus capitis Assessment/Plan Assessment/Plan Assessment/Plan Cachexia Peg tube placement 06/24 Hip fracture Ortho s/p surgical repair 06/17 Anemia Transfused 1 unit on 06/20, current level at 9.3 down from 10.5 yesterday, repeat CBC Pneumothorax Chest tube placement has resolved left side pneumothorax with serous fluid drainage, monitor with repeat CXR Guardian in place, Cristina [place] [phone] Clinical Quality Measures DVT/VTE Risk/Contraindication: Contraindications-Pharm: Other *list below* Other: OR ALMA MANZO DO 06/25/21 0943: Subjective Time Seen by a Provider: 09:01 Subjective/Events-last exam Pt seen and examined, no significant changes. Nurse states they got another appx 80ml of fluid from chest tube since it was put in. Review of Systems unable to obtain Objective Exam General Appearance: Chronically ill, Thin HEENT: PERRL/EOMI, Other (mucous membranes dry) Respiratory: Decreased Breath Sounds (left), Other (chest tube placement on left side, no leak ) Cardiovascular: Regular Rate, Rhythm Gastrointestinal: non tender, soft, other (PEG tube in place ) Neurologic/Psychiatric: Aphasia Skin: Pallor Assessment/Plan Assessment/Plan Assessment/Plan Cachexia Peg tube placement 06/24 Pneumothorax Chest tube placement has resolved left side pneumothorax with serous fluid drainage, monitor with repeat CXR in am 06/26 and leave to suction Hip fracture Ortho s/p surgical repair 06/17 Anemia Transfused 1 unit on 06/20, current level at 9.3 down from 10.5 yesterday, repeat CBC Guardian in place, Cristina [place] [phone] Supervisory-Addendum Brief Verification & Attestation Participated in pt care: history, MDM, physical Personally performed: exam, history, MDM, supervision of care Care discussed with: Medical Student Procedures: n/a Verification and Attestation of Medical Student E/M Service A medical student performed and documented this service. I then reviewed and verified all information documented by the medical student and made modifications to such information, when appropriate. I personally performed a physical exam, medical decision making and then discussed any differences between the notes and made revisions as necessary to create one note. Alma Manzo , 06/25/21 , 09:48 DAHLIA PAYTON Jun 25, 2021 08:13 ALMA MANZO DO Jun 25, 2021 09:43
--- NOTE | 2021-06-25 08:40 | Anesthesia-General Post-Op ---
MAC Patient Condition Mental Status/LOC: Same as Preop Cardiovascular: Satisfactory Nausea/Vomiting: Absent Respiratory: Satisfactory Pain: Controlled Complications: Absent Post Op Complications Complications None Follow Up Care/Instructions Patient Instructions None needed. Anesthesiology Discharge Order Discharge Order Patient is doing well, no complaints, stable vital signs, no apparent adverse anesthesia problems. No complications reported per nursing. EVA GARCIA CRNA Jun 25, 2021 08:40
[2021-06-25] MEDS: SENNOSIDES 8.6 MG (SENOKOT) TAB PO SCH ×2 (09:36→21:37)
[2021-06-25] MEDS: DOCUSATE SODIUM 100 MG (COLACE) CAP PO SCH ×2 (09:36→21:37)
[2021-06-25] MEDS: ENOXAPARIN 30 MG/0.3 ML (LOVENOX) SYR SC SCH (09:36)
[2021-06-25] MEDS: RT-ALBUTEROL SULF 2.5 MG/3 ML PRE-MIX VIAL INH SCH ×2 (10:30→22:43)
--- NOTE | 2021-06-25 10:49 | Tele-ICU Progress Note ---
Subjective Date Seen by a Provider: Jun 25, 2021 Time Seen by a Provider: 10:49 Sepsis Event Evaluation Height, Weight, BMI Height: 5'0" Weight: 96lbs. oz. 43.240175jd; 15.00 BMI Method:Stated Focused Exam Lactate Level 06/24/21 15:30: Lactic Acid Level 0.75 Exam Exam Patient acknowledged, consented, and participated in this virtual visit which was conducted using real time audio/video Vital Signs Date Time Temp Pulse Resp B/P (MAP) Pulse Ox O2 Delivery O2 Flow Rate FiO2 06/25/21 10:30 100 Room Air 06/25/21 10:00 69 22 93/57 (69) 100 Room Air 06/25/21 09:00 63 18 97/64 (75) 98 Room Air 06/25/21 08:30 Room Air 06/25/21 08:00 66 18 110/86 (94) 100 Nasal Cannula 2.00 06/25/21 07:39 36.9 06/25/21 07:00 65 30 96/64 (75) 97 Nasal Cannula 2.00 06/25/21 07:00 73 06/25/21 06:00 66 19 104/65 (78) 99 Nasal Cannula 2.00 06/25/21 05:00 58 25 103/59 (74) 98 Nasal Cannula 2.00 06/25/21 04:00 36.4 06/25/21 04:00 Nasal Cannula 2.00 06/25/21 04:00 62 20 108/69 (82) 99 Nasal Cannula 2.00 06/25/21 03:00 73 28 90/59 (69) 99 Nasal Cannula 2.00 06/25/21 02:00 80 22 101/59 (73) 99 Nasal Cannula 2.00 06/25/21 01:00 67 26 100/74 (83) 98 Nasal Cannula 2.00 06/25/21 01:00 67 06/25/21 00:00 Nasal Cannula 2.00 06/25/21 00:00 36.4 06/25/21 00:00 68 24 99/71 (80) 97 Nasal Cannula 2.00 06/24/21 23:00 68 22 104/55 (71) 96 Nasal Cannula 2.00 06/24/21 22:00 72 20 103/68 (80) 94 Nasal Cannula 2.00 06/24/21 21:27 95 Nasal Cannula 2.00 06/24/21 21:00 86 28 103/54 (70) 97 Nasal Cannula 2.00 06/24/21 20:00 35.9 06/24/21 20:00 Nasal Cannula 2.00 06/24/21 20:00 69 28 103/77 (86) 94 Nasal Cannula 2.00 06/24/21 19:00 73 06/24/21 19:00 73 20 105/84 (91) 100 Nasal Cannula 2.00 06/24/21 18:42 Nasal Cannula 2.00 06/24/21 18:00 64 24 95/50 (65) 97 NIV Bilevel 70.00 06/24/21 17:00 73 19 125/97 (106) 100 NIV Bilevel 70.00 06/24/21 16:29 36.1 06/24/21 16:00 NIV Bilevel 50 06/24/21 16:00 74 15 110/69 (83) 97 NIV Bilevel 70.00 06/24/21 15:49 89 20 98 50.00 06/24/21 15:00 91 24 124/69 (87) 100 NIV Bilevel 70.00 06/24/21 14:30 36.4 06/24/21 14:06 83 06/24/21 14:00 91 35 116/76 (89) 99 NIV Bilevel 70.00 06/24/21 13:53 75 26 98 70.00 06/24/21 13:45 76 24 86/71 (76) 98 Nasal Cannula 2.00 06/24/21 13:40 NIV Bilevel 70 06/24/21 13:05 83 26 95 90.00 06/24/21 12:15 101 22 93 OxyMask 5 06/24/21 12:10 100 22 94 OxyMask 10 06/24/21 12:05 94 22 94 OxyMask 10 I & O 06/25/21 07:00 Intake Total 200 ml Output Total 366 ml Balance -166 ml Height & Weight Height: 5'0" Weight: 96lbs. oz. 43.905882py; 15.00 BMI Method:Stated General Appearance: Chronically ill, Thin HEENT: PERRL/EOMI, Other (mucous membranes dry) Neck: Full Range of Motion, Non Tender, Supple Respiratory: Decreased Breath Sounds (left), Other (chest tube placement on left side, no leak ) Cardiovascular: Regular Rate, Rhythm Capillary Refill: Less Than 3 Seconds Gastrointestinal: non tender, soft, other (PEG tube in place ) Extremity: Normal Inspection, No Pedal Edema Neurologic/Psychiatric: Aphasia Skin: Pallor Results Lab Laboratory Tests 06/24/21 05:00 06/24/21 15:30 06/25/21 03:23 Assessment/Plan Assessment/Plan Tele-ICU Physician , Progress Note ) Available chart/ vitals / labs / Images reviewed Video assessment done using teleICU camera, rest of exam as per RN Discussed with RN , EXAM PER RN Events overnight : off bipap am Afebrile FiO2 - ra I/O = Drips: Pressors: , hemodynamically stable Consultants: sx Hospital course: (06/16) 66f admitted for Intramedullary Nailing of Right Intertrochanteric Femur Fracture (06/24) s/p PEG placement. 06/24 To ICU post ART CRITIC for L pneumo - s/p theravent placement A/P Acute resp failure post PEG tube placement 06/24 - due to PTX on left and RUL PNA - off NIPPB - on RA - still has significant secretions - need frequent succtionning L pneumo post PEG 06/24 - s/p theravent placement 06/24 - PTC resolved , still on suction due to draining bloody eddusion - as per Sx RUL PNA , suspewcted aspiration - Zosyn 06/24 --> Hip fracture on presentation -s/p surgical repair 06/17 Postoperative anemia due to acute blood loss -s/p 1 unit PRBC - stable Dysphagia - s/p PEG tube placement 07/04 Cognitive impairment -Chronic, at baseline 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 Discussed with RN to reach out if any questions or concerns A total of 33 minutes of critical care time was devoted to this patient today, required to treat and/or prevent further deterioration of critical care condition ( as above SOMMER PEREZ MD Jun 25, 2021 10:49
[2021-06-25] MEDS ORDERED: DEXTROSE 50% 50 ML (IMS) SYR IV NR (11:30)
--- NOTE | 2021-06-25 12:17 | OPERATIVE REPORT ---
DATE OF SERVICE: 06/24/2021 PREOPERATIVE DIAGNOSIS: Malnutrition, inability to swallow. POSTOPERATIVE DIAGNOSIS: Malnutrition, inability to swallow. PROCEDURE PERFORMED: EGD. SURGEON: Shelbie Harvey DO. ANESTHESIA: IV sedation per [employer]. ESTIMATED BLOOD LOSS: None. COMPLICATIONS: None. INDICATIONS FOR PROCEDURE: The patient is a 66-year-old female needing a gastrostomy tube placement. I have been asked to place the EGD tube can be placed. Please see separate dictator for gastrostomy tube by Dr. Romo. DESCRIPTION OF PROCEDURE: A timeout was performed. Scope was inserted in mouth, down the esophagus, stomach and into the duodenum without difficulty. There were no polyps, masses or ulcerations. Scope was slowly retracted back to stomach, where it was further insufflated. chronic gastritis was present. Stomach was insufflated and the Angiocath needle and catheter were visualized as they were entered into the stomach. This was then snared and the guidewire was inserted and the wire was then snared and brought out through the mouth. The gastrostomy tube was secured to it and the gastrostomy tube was followed back into the stomach. Once in place, the internal bolster had a good location and no evidence of any other trauma. Scope was then slowly retracted back until completely removed noting no other pathology. The patient tolerated the procedure well without any complications and taken to the recovery room in stable condition. Job ID: [id number] DocumentID: [id number] Dictated Date: 06/25/2021 11:35:59 Tooth Cutter [employer] Date: 06/25/2021 12:16:06 Dictated By: SHELBIE HARVEY DO
--- NOTE | 2021-06-25 22:27 | Progress Note - Hospitalist ---
Subjective HPI/CC On Admission Date Seen by Provider: Jun 25, 2021 Time Seen by Provider: 10:15 CC: right hip fracture HPI: 66 yr old WF intellectually delayed individual who lives in a halfway. She presented with a right hip fracture. She hadn't been eating or drinking for a few days. Labs revealed dehydration. She was assessed in the ER and found to have a right hip fracture due to favoring that leg and wouldn't walk like she usually does. She had an uneventful hip fracture repair by Dr. Batista. IV fluids maintained with good resolution of hypernatremia. Subjective/Events-last exam She is awake and alert on room air. She is getting cleaned up after having a bowel movement. Focused Exam Lactate Level 06/24/21 15:30: Lactic Acid Level 0.75 Objective Exam Vital Signs Vital Signs Date Time Temp Pulse Resp B/P (MAP) Pulse Ox O2 Delivery O2 Flow Rate FiO2 06/25/21 20:00 100 Room Air 06/25/21 19:48 35.9 06/25/21 19:00 71 06/25/21 18:00 25 110/94 (99) 06/25/21 08:00 2.00 06/24/21 16:00 50 Capillary Refill : Less Than 3 Seconds General Appearance: No Apparent Distress, Chronically ill, Thin Respiratory: No Respiratory Distress, Other (coarse breath sounds bilaterally, saturating 100% on room air) Cardiovascular: Regular Rate, Rhythm, No Murmur, Other (left chest tube in plac e) Gastrointestinal: Normal Bowel Sounds, Soft Extremity: Normal Inspection, No Pedal Edema Skin: Warm/Dry, Pallor Results/Procedures Lab Laboratory Tests 06/25/21 03:23 Patient resulted labs reviewed. Imaging: Reviewed Imaging Report Assessment/Plan Assessment and Plan Assess & Plan/Chief Complaint Acute respiratory failue with hypoxia Pneumothorax Pneumonia Zosyn Chest tube placed Now on room air Surgery following Dysphagia Goals of care discussion Modified barium swallow consistent with aspiration NPO PEG placed 06/24 Beginning tube feeds Hip fracture Ortho following s/p surgical repair 06/17 Pain regimen Bowel regimen PT/OT Postoperative anemia due to acute blood loss s/p 1 unit PRBC Hgb stable Monitor Cognitive impairment Social work consulted Guardian in place, Cristina Felix [phone] DVT prophylaxis: Lovenox Diagnosis/Problems Diagnosis/Problems (1) Acute respiratory failure with hypoxia Status: Acute (2) Pneumothorax Status: Acute (3) Pneumonia Status: Acute (4) Closed right hip fracture Status: Acute (5) Anemia Status: Acute (6) Dysphagia Status: Acute (7) Mental disability Status: Chronic Clinical Quality Measures DVT/VTE Risk/Contraindication: Contraindications-Pharm: Other *list below* Other: OR HEBER ÁLVAREZ MD Jun 25, 2021 22:27
[2021-06-26] VITALS (22 sets, daily range): BP systolic 86–115; BP diastolic 52–73
[2021-06-26 04:47] LABS: BASOPHILS # (AUTO) 0.1 10^3/uL (0.0-0.1); BASOPHILS % (AUTO) 1 % (0-10); EOSINOPHILS # (AUTO) 0.6 10^3/uL (0.0-0.3); EOSINOPHILS % (AUTO) 5 % (0-10); HEMATOCRIT 30 % (35-52); HEMOGLOBIN 9.8 g/dL (11.5-16.0); LYMPHOCYTES % (AUTO) 17 % (12-44); MEAN CORPUSCULAR HEMOGLOBIN 31 pg (25-34); MEAN CORPUSCULAR HGB CONC 33 g/dL (32-36); MEAN CORPUSCULAR VOLUME 95 fL (80-99); MEAN PLATELET VOLUME 9.9 fL (9.0-12.2); MONOCYTES # (AUTO) 0.5 10^3/uL (0.0-1.0); MONOCYTES % (AUTO) 4 % (0-12); NEUTROPHILS % (AUTO) 69 % (42-75); PLATELET COUNT 625 10^3/uL (130-400); WHITE BLOOD COUNT 11.7 10^3/uL (4.3-11.0)
[2021-06-26 05:05] LABS: ALBUMIN 2.4 GM/DL (3.2-4.5); POTASSIUM 3.7 MMOL/L (3.6-5.0)
[2021-06-26 05:06] LABS: CALCIUM 8.4 MG/DL (8.5-10.1)
[2021-06-26 05:08] LABS: TOTAL PROTEIN 5.4 GM/DL (6.4-8.2)
[2021-06-26 05:09] LABS: BILIRUBIN,TOTAL 0.5 MG/DL (0.1-1.0)
[2021-06-26 05:11] LABS: CREATININE SERUM 0.91 MG/DL (0.60-1.30); PHOSPHORUS 2.1 MG/DL (2.3-4.7)
[2021-06-26 05:14] LABS: MAGNESIUM 2.1 MG/DL (1.6-2.4)
[2021-06-26] MEDS: PIPERACILLIN SODIUM/TAZOBACTAM 4.5 GM in NS (IVPB) 100 ML IV SCH ×3 (05:42→22:01)
[2021-06-26] MEDS: POTASSIUM CL 10MEQ/50ML IVPB 50 ML IV SCH (05:48)
[2021-06-26] MEDS: KCL 20 MEQ TAB (K-DUR) PO SCH (05:49)
[2021-06-26] MEDS: MAGNESIUM 1 GM/100 ML IVPB 100 ML IV SCH (05:49)
--- NOTE | 2021-06-26 07:24 | Diagnostic Imaging Report ---
INDICATION: History of pneumonia and pneumothorax. It is compared with the study 06/24/2021 FINDINGS: Pleural catheter on the left remains. No detectable pneumothorax. Bilateral infiltrates greatest in the medial left lower lobe and in the apical right upper lobe persist as well as multifocal nodular densities unchanged. No effusion. IMPRESSION: Redemonstration of bilateral nodules and infiltrates. No detectable pneumothorax or significant pleural fluid. Dictated by: Dictated on workstation # [id number]
[2021-06-26] MEDS: RT-ALBUTEROL SULF 2.5 MG/3 ML PRE-MIX VIAL INH SCH ×3 (07:41→20:58)
--- NOTE | 2021-06-26 08:40 | Tele-ICU Progress Note ---
Progress Note video rounds completed 66 y/o female with development delay who lives in a [place] [facility] Presented to ED with dehydration and hip fx Underwent surgical repair for hip fracture Post op developed HAP and evaulated for aspiration so PEG placed. PLAN: on zosyn for PNA Focused Exam Lactate Level 06/24/21 15:30: Lactic Acid Level 0.75 Height, Weight, BMI Height: 5'0" Weight: 96lbs. oz. [phone]; 15.00 BMI Method:Stated Laboratory Tests 06/26/21 04:16 Results/Procedures Lab Laboratory Tests 06/24/21 15:30 06/25/21 03:23 06/26/21 04:16 DEANA CARBONE MD Jun 26, 2021 08:40
[2021-06-26] MEDS: IRON SUCROSE 200 MG/10 ML (VENOFER) VIAL IV SCH (09:17)
[2021-06-26] MEDS: SENNOSIDES 8.6 MG (SENOKOT) TAB PO SCH ×2 (09:17→22:02)
[2021-06-26] MEDS: DOCUSATE SODIUM 100 MG (COLACE) CAP PO SCH ×2 (09:17→22:01)
--- NOTE | 2021-06-26 10:52 | Progress Note ---
Subjective Date Seen by a Provider: Jun 26, 2021 Time Seen by a Provider: 10:00 Subjective/Events-last exam no ptx on cxr. minimal CT drainage and no air leak. tolerating TF's. Focused Exam Lactate Level 06/24/21 15:30: Lactic Acid Level 0.75 Objective Exam Vital Signs Date Time Temp Pulse Resp B/P (MAP) Pulse Ox O2 Delivery O2 Flow Rate FiO2 06/26/21 10:00 60 16 89/59 (69) 99 Room Air 06/26/21 09:00 77 22 115/56 (75) 100 Room Air 06/26/21 08:00 100 Room Air 06/26/21 08:00 70 101/62 (75) 100 Room Air 06/26/21 07:45 36.1 06/26/21 07:41 100 Room Air 06/26/21 07:00 57 22 92/63 (73) 98 Room Air 06/26/21 07:00 72 06/26/21 06:00 61 17 99/55 (70) 100 Room Air 06/26/21 05:00 71 25 101/57 (72) 99 Room Air 06/26/21 04:00 64 25 105/56 (72) 98 Room Air 06/26/21 04:00 100 Room Air 06/26/21 03:00 74 26 106/62 (77) 99 Room Air 06/26/21 02:00 61 19 103/59 (74) 99 Room Air 06/26/21 01:00 73 24 102/56 (71) 99 Room Air 06/26/21 01:00 74 06/26/21 00:00 36.1 06/26/21 00:00 70 25 95/63 (74) 98 Room Air 06/26/21 00:00 100 Room Air 06/25/21 23:38 36.0 06/25/21 23:00 86 28 101/88 (92) 100 Room Air 06/25/21 22:43 100 Room Air 06/25/21 22:00 71 25 118/53 (74) 97 Room Air 06/25/21 21:00 86 17 105/62 (76) 100 Room Air 06/25/21 20:00 100 Room Air 06/25/21 20:00 72 18 93/62 (72) 99 Room Air 06/25/21 19:48 35.9 06/25/21 19:00 70 23 99/60 (73) 100 Room Air 06/25/21 19:00 71 06/25/21 18:00 76 25 110/94 (99) 99 Room Air 06/25/21 17:00 72 28 102/65 (77) 100 Room Air 06/25/21 16:00 68 21 98/65 (76) 100 Room Air 06/25/21 16:00 100 Room Air 06/25/21 16:00 36.3 06/25/21 15:00 66 23 94/71 (79) 100 Room Air 06/25/21 14:00 73 22 95/60 (72) 100 Room Air 06/25/21 13:00 74 18 105/61 (76) 100 Room Air 06/25/21 12:36 74 06/25/21 12:00 91 23 108/65 (79) 100 Room Air 06/25/21 12:00 100 Room Air 06/25/21 12:00 36.2 06/25/21 11:00 75 25 84/56 (65) 98 Room Air I & O 06/26/21 07:00 Intake Total 955 ml Output Total 115 ml Balance 840 ml Capillary Refill : Less Than 3 Seconds General Appearance: No Apparent Distress HEENT: PERRL/EOMI Neck: Full Range of Motion Respiratory: Chest Non Tender, Lungs Clear Cardiovascular: Regular Rate, Rhythm Gastrointestinal: normal bowel sounds, soft Extremity: Normal Capillary Refill Neurologic/Psychiatric: Disoriented Skin: Normal Color Lymphatic: No Adenopathy Results Lab Laboratory Tests 06/25/21 11:14: Glucometer 54*L 06/25/21 12:58: Glucometer 98 06/26/21 04:16: White Blood Count 11.7H, Red Blood Count 3.18L, Hemoglobin 9.8L, Hematocrit 30L, Mean Corpuscular Volume 95, Mean Corpuscular Hemoglobin 31, Mean Corpuscular Hemoglobin Concent 33, Red Cell Distribution Width 17.5H, Platelet Count 625H, Mean Platelet Volume 9.9, Immature Granulocyte % (Auto) 5, Neutrophils (%) (Auto) 69, Lymphocytes (%) (Auto) 17, Monocytes (%) (Auto) 4, Eosinophils (%) (Auto) 5, Basophils (%) (Auto) 1, Neutrophils # (Auto) 8.0H, Lymphocytes # (Auto ) 2.0, Monocytes # (Auto) 0.5, Eosinophils # (Auto) 0.6H, Basophils # (Auto) 0.1, Immature Granulocyte # (Auto) 0.5H, Sodium Level 137, Potassium Level 3.7, Chloride Level 107, Carbon Dioxide Level 18L, Anion Gap 12, Blood Urea Nitrogen 14, Creatinine 0.91, Estimat Glomerular Filtration Rate 70, BUN/Creatinine Ratio 15, Glucose Level 89, Calcium Level 8.4L, Corrected Calcium 9.7, Phosphorus Level 2.1L, Magnesium Level 2.1, Total Bilirubin 0.5, Aspartate Amino Transf (AST/SGOT) 27, Alanine Aminotransferase (ALT/SGPT) 6, Alkaline Phosphatase 131, Total Protein 5.4L, Albumin 2.4L Microbiology 06/16/21 MRSA Screen - Final, Complete MRSA not isolated 06/16/21 Urine Culture - Final, Complete NO GROWTH 06/16/21 Blood Culture - Final, Complete Staphylococcus capitis Assessment/Plan Assessment/Plan Assess & Plan/Chief Complaint ptx s/p thorovent placement. placed to seal. will follow serial cxr's Clinical Quality Measures DVT/VTE Risk/Contraindication: Contraindications-Pharm: Other *list below* Other: OR MANUELA VALENCIA MD Jun 26, 2021 10:52
--- NOTE | 2021-06-26 13:42 | Progress Note - Ortho ---
Progress Note Subjective Date of Exam 06/26/21 Chief Complaint POD #9 IM Nailing of R IT Femur Fx HPI/Events since last exam events noted, currently in ICU Review of Systems - Allergies: Coded Allergies: No Known Drug Allergies (Unverified , 10/26/16) Home Meds Reported Medications Nystatin (Nystatin) 1 Each Powder.ea., 1 EACH MC BID PRN for RASH, UNIT 06/17/21 Diclofenac Sodium/Misoprostol (Diclofenac-Misoprost 50-0.2 Tb) 1 Each Tab.ir.dr, 1 EACH PO BID PRN for PAIN/INFLAMMATION 06/17/21 Fexofenadine HCl (Fexofenadine HCl) 180 Mg Tablet, 180 MG PO HS, TAB 06/17/21 Acetaminophen (Tylenol) 325 Mg Tablet, 650 MG PO Q4H PRN for PAIN-MILD (1-4), TAB 06/17/21 Melatonin (Melatonin) 3 Mg Tablet, 3 MG PO HS, TAB 06/17/21 Calcium Carbonate/Vitamin D3 (Oyster Shell Calcium-Vit D Tab) 1 Each Tablet, 1 EA PO BID, TAB 06/17/21 Divalproex Sodium (Divalproex Sodium) 125 Mg Cap.sprink, 250 MG PO 0800,1700, CAP 06/17/21 Vitamin B Complex (Vitamin B Complex) 1 Each Tablet, 1 EACH PO DAILY, TAB 06/17/21 Divalproex Sodium (Divalproex Sodium) 125 Mg Cap.sprink, 125 MG PO HS, CAP TAKES WITH FOOD 06/17/21 Cetirizine HCl (Cetirizine HCl) 10 Mg Tablet, 10 MG PO 1700, TAB 10/26/16 Objective Exam Right Leg: Incisions C/D/I, maxine in place, ecchymosis over thigh, spontaneously DF ankle, pulses 2+ Vital Signs Vital Signs Date Time Temp Pulse Resp B/P (MAP) Pulse Ox O2 Delivery O2 Flow Rate FiO2 06/26/21 13:00 60 20 94/65 (75) 100 Room Air 06/26/21 12:37 68 06/26/21 12:00 70 17 102/59 (73) 100 Room Air 06/26/21 11:30 36.4 06/26/21 11:00 68 16 110/73 (85) 98 Room Air 06/26/21 10:00 60 16 89/59 (69) 99 Room Air 06/26/21 09:00 77 22 115/56 (75) 100 Room Air 06/26/21 08:00 100 Room Air 06/26/21 08:00 70 101/62 (75) 100 Room Air 06/26/21 07:45 36.1 06/26/21 07:41 100 Room Air 06/26/21 07:00 57 22 92/63 (73) 98 Room Air 06/26/21 07:00 72 06/26/21 06:00 61 17 99/55 (70) 100 Room Air 06/26/21 05:00 71 25 101/57 (72) 99 Room Air 06/26/21 04:00 64 25 105/56 (72) 98 Room Air 06/26/21 04:00 100 Room Air 06/26/21 03:00 74 26 106/62 (77) 99 Room Air 06/26/21 02:00 61 19 103/59 (74) 99 Room Air 06/26/21 01:00 73 24 102/56 (71) 99 Room Air 06/26/21 01:00 74 06/26/21 00:00 36.1 06/26/21 00:00 70 25 95/63 (74) 98 Room Air 06/26/21 00:00 100 Room Air 06/25/21 23:38 36.0 06/25/21 23:00 86 28 101/88 (92) 100 Room Air 06/25/21 22:43 100 Room Air 06/25/21 22:00 71 25 118/53 (74) 97 Room Air 06/25/21 21:00 86 17 105/62 (76) 100 Room Air 06/25/21 20:00 100 Room Air 06/25/21 20:00 72 18 93/62 (72) 99 Room Air 06/25/21 19:48 35.9 06/25/21 19:00 70 23 99/60 (73) 100 Room Air 06/25/21 19:00 71 06/25/21 18:00 76 25 110/94 (99) 99 Room Air 06/25/21 17:00 72 28 102/65 (77) 100 Room Air 06/25/21 16:00 68 21 98/65 (76) 100 Room Air 06/25/21 16:00 100 Room Air 06/25/21 16:00 36.3 06/25/21 15:00 66 23 94/71 (79) 100 Room Air 06/25/21 14:00 73 22 95/60 (72) 100 Room Air I & O 06/26/21 06:59 Intake Total 955 ml Output Total 115 ml Balance 840 ml Lab Results Laboratory Tests 06/26/21 04:16: White Blood Count 11.7H, Red Blood Count 3.18L, Hemoglobin 9.8L, Hematocrit 30L, Mean Corpuscular Volume 95, Mean Corpuscular Hemoglobin 31, Mean Corpuscular Hemoglobin Concent 33, Red Cell Distribution Width 17.5H, Platelet Count 625H, Mean Platelet Volume 9.9, Immature Granulocyte % (Auto) 5, Neutrophils (%) (Auto) 69, Lymphocytes (%) (Auto) 17, Monocytes (%) (Auto) 4, Eosinophils (%) (Auto) 5, Basophils (%) (Auto) 1, Neutrophils # (Auto) 8.0H, Lymphocytes # (Auto) 2.0, Monocytes # (Auto) 0.5, Eosinophils # (Auto) 0.6H, Basophils # (Auto) 0.1, Immature Granulocyte # (Auto) 0.5H, Sodium Level 137, Potassium Level 3.7, Chloride Level 107, Carbon Dioxide Level 18L, Anion Gap 12, Blood Urea Nitrogen 14, Creatinine 0.91, Estimat Glomerular Filtration Rate 70, BUN/Creatinine Ratio 15, Glucose Level 89, Calcium Level 8.4L, Corrected Calcium 9.7, Phosphorus Level 2.1L, Magnesium Level 2.1, Total Bilirubin 0.5, Aspartate Amino Transf (AST/SGOT) 27, Alanine Aminotransferase (ALT/SGPT) 6, Alkaline Phosphatase 131, Total Protein 5.4L, Albumin 2.4L Microbiology 06/16/21 MRSA Screen - Final, Complete MRSA not isolated 06/16/21 Urine Culture - Final, Complete NO GROWTH 06/16/21 Blood Culture - Final, Complete Staphylococcus capitis Assessment and Plan Assessment Right Intertrochanteric Femur Fracture s/p Intramedullary Nailing Problem List Right Intertrochanteric Femur Fracture s/p Intramedullary Nailing Plan Ambulation as and when able Dressing changes; maxine out on POD #12 DVT Prophylaxis Final Diagonsis Right Intertrochanteric Femur Fracture s/p Intramedullary Nailing Level of the visit: Level 3 (postop global) Focused Exam Lactate Level 06/24/21 15:30: Lactic Acid Level 0.75 Clinical Quality Measures DVT/VTE Risk/Contraindication: Contraindications-Pharm: Other *list below* Other: OR KASSIDY STARR MD Jun 26, 2021 13:42
--- NOTE | 2021-06-26 18:55 | Progress Note - Hospitalist ---
Subjective HPI/CC On Admission Date Seen by Provider: Jun 26, 2021 Time Seen by Provider: 09:50 CC: right hip fracture HPI: 66 yr old WF intellectually delayed individual who [facility] in a correction. She presented with a right hip fracture. She hadn't been eating or drinking for a few days. Labs revealed dehydration. She was assessed in the ER and found to have a right hip fracture due to favoring that leg and wouldn't walk like she usually does. She had an uneventful hip fracture repair by Dr. Batista. IV fluids maintained with good resolution of hypernatremia. Subjective/Events-last exam She is restless. She appears uncomfortable. Focused Exam Lactate Level 06/24/21 15:30: Lactic Acid Level 0.75 Objective Exam Vital Signs Vital Signs Date Time Temp Pulse Resp B/P (MAP) Pulse Ox O2 Delivery O2 Flow Rate FiO2 06/26/21 18:00 72 19 89/52 (64) 95 Room Air 06/26/21 16:00 36.2 06/25/21 08:00 2.00 06/24/21 16:00 50 Capillary Refill : Less Than 3 Seconds General Appearance: Chronically ill, Mild Distress (uncomfortable), Thin Respiratory: No Respiratory Distress, Rhonci Cardiovascular: Regular Rate, Rhythm, No Murmur Gastrointestinal: Normal Bowel Sounds, Soft Extremity: Normal Inspection, No Pedal Edema Neurologic/Psychiatric: Alert, Aphasia, Disoriented, Other (uncooperative, does not follow commands) Skin: Warm/Dry, Pallor Results/Procedures Lab Laboratory Tests 06/26/21 04:16 Patient resulted labs reviewed. Imaging: Reviewed Imaging Report Assessment/Plan Assessment and Plan Assess & Plan/Chief Complaint Pneumothorax Pneumonia Zosyn Repeat CXR with no pneumothorax or effusion Chest tube placed to seal this morning Now on room air Surgery following Dysphagia Goals of care discussion Modified barium swallow consistent with aspiration NPO PEG placed 06/24 Continue tube feeds Hip fracture Ortho following s/p surgical repair 06/17 Pain regimen Bowel regimen PT/OT Postoperative anemia due to acute blood loss s/p 1 unit PRBC Hgb stable Cognitive impairment Social work consulted Guardian in place, Cristina Felix [phone] DVT prophylaxis: Lovenox Acute respiratory failue with hypoxia, resolved Diagnosis/Problems Diagnosis/Problems (1) Acute respiratory failure with hypoxia Status: Acute (2) Pneumothorax Status: Acute (3) Pneumonia Status: Acute (4) Closed right hip fracture Status: Acute (5) Anemia Status: Acute (6) Dysphagia Status: Acute (7) Mental disability Status: Chronic Clinical Quality Measures DVT/VTE Risk/Contraindication: Contraindications-Pharm: Other *list below* Other: OR HEBER ÁLVAREZ MD Jun 26, 2021 18:55
[2021-06-27] VITALS (23 sets, daily range): BP systolic 87–116; BP diastolic 52–79
[2021-06-27] MEDS: PIPERACILLIN SODIUM/TAZOBACTAM 4.5 GM in NS (IVPB) 100 ML IV SCH ×3 (05:39→22:27)
[2021-06-27 05:51] LABS: BASOPHILS # (AUTO) 0.1 10^3/uL (0.0-0.1); BASOPHILS % (AUTO) 1 % (0-10); EOSINOPHILS # (AUTO) 0.4 10^3/uL (0.0-0.3); EOSINOPHILS % (AUTO) 4 % (0-10); HEMATOCRIT 30 % (35-52); HEMOGLOBIN 9.8 g/dL (11.5-16.0); LYMPHOCYTES # (AUTO) 1.7 10^3/uL (1.0-4.0); LYMPHOCYTES % (AUTO) 16 % (12-44); MEAN CORPUSCULAR HEMOGLOBIN 31 pg (25-34); MEAN CORPUSCULAR HGB CONC 33 g/dL (32-36); MEAN CORPUSCULAR VOLUME 96 fL (80-99); MONOCYTES # (AUTO) 0.4 10^3/uL (0.0-1.0); MONOCYTES % (AUTO) 4 % (0-12); NEUTROPHILS # (AUTO) 7.3 10^3/uL (1.8-7.8); NEUTROPHILS % (AUTO) 70 % (42-75); PLATELET COUNT 655 10^3/uL (130-400); WHITE BLOOD COUNT 10.4 10^3/uL (4.3-11.0)
[2021-06-27] MEDS: KCL 20 MEQ TAB (K-DUR) PO SCH (06:02)
[2021-06-27] MEDS: POTASSIUM CL 10MEQ/50ML IVPB 50 ML IV SCH (06:02)
[2021-06-27] MEDS: MAGNESIUM 1 GM/100 ML IVPB 100 ML IV SCH (06:02)
[2021-06-27 06:05] LABS: ALBUMIN 2.3 GM/DL (3.2-4.5); POTASSIUM 3.7 MMOL/L (3.6-5.0)
[2021-06-27 06:07] LABS: CALCIUM 8.1 MG/DL (8.5-10.1)
[2021-06-27 06:08] LABS: TOTAL PROTEIN 5.2 GM/DL (6.4-8.2)
[2021-06-27 06:10] LABS: BILIRUBIN,TOTAL 0.4 MG/DL (0.1-1.0)
[2021-06-27 06:11] LABS: PHOSPHORUS 1.6 MG/DL (2.3-4.7)
[2021-06-27 06:12] LABS: CREATININE SERUM 0.82 MG/DL (0.60-1.30)
[2021-06-27 06:14] LABS: MAGNESIUM 1.7 MG/DL (1.6-2.4)
[2021-06-27] MEDS: SENNOSIDES 8.6 MG (SENOKOT) TAB PO SCH ×2 (07:33→22:27)
[2021-06-27] MEDS: DOCUSATE SODIUM 100 MG (COLACE) CAP PO SCH ×2 (07:33→22:27)
--- NOTE | 2021-06-27 08:50 | Diagnostic Imaging Report ---
EXAMINATION: Abdominal series and chest radiograph HISTORY: Postoperative PICC tube placement COMPARISON: 06/26/2021 FINDINGS: Percutaneous gastrostomy tube is present. Patient's right hand that obscures the right apex. There is a left-sided chest tube. No pneumothorax is seen. No edema or pneumonia. Bilateral nodular opacities. Represent nipple shadows. No pleural effusion or pneumothorax. There are mildly dilated loops of large and small bowel. Large stool ball is present in the rectum. No free air. IMPRESSION: 1. No pneumothorax. 2. Mildly dilated loops of large and small bowel suggestive of ileus. Dictated by: Dictated on workstation # [id number]
[2021-06-27] MEDS: RT-ALBUTEROL SULF 2.5 MG/3 ML PRE-MIX VIAL INH SCH ×3 (09:02→19:57)
--- NOTE | 2021-06-27 10:02 | Progress Note ---
Subjective Date Seen by a Provider: Jun 27, 2021 Time Seen by a Provider: 09:00 Subjective/Events-last exam doing ok. no new issues. does not appear to be any leak in thoravent. tolerating TF's, Focused Exam Lactate Level 06/24/21 15:30: Lactic Acid Level 0.75 Objective Exam Vital Signs Date Time Temp Pulse Resp B/P (MAP) Pulse Ox O2 Delivery O2 Flow Rate FiO2 06/27/21 09:00 67 20 93/66 (75) 100 Room Air 06/27/21 08:00 36.3 06/27/21 08:00 100 Room Air 06/27/21 08:00 67 21 104/60 (75) 98 Room Air 06/27/21 07:00 60 06/27/21 07:00 58 21 91/53 (66) 99 Room Air 06/27/21 06:00 73 18 116/64 (81) 99 Room Air 06/27/21 05:40 37.0 06/27/21 05:00 68 29 101/79 (86) 96 Room Air 06/27/21 04:00 100 Room Air 06/27/21 04:00 75 21 100/62 (75) 98 Room Air 06/27/21 03:00 63 25 91/52 (65) 100 Room Air 06/27/21 02:00 82 24 91/64 (73) 97 Room Air 06/27/21 01:00 70 06/27/21 01:00 69 25 88/61 (70) 98 Room Air 06/27/21 00:56 36.6 06/27/21 00:00 71 27 95/65 (75) 98 Room Air 06/27/21 00:00 100 Room Air 06/26/21 23:00 79 17 95/60 (72) 100 Room Air 06/26/21 22:00 66 17 101/59 (73) 100 Room Air 06/26/21 21:00 77 22 101/64 (76) 100 Room Air 06/26/21 20:58 96 Room Air 06/26/21 20:00 67 25 86/68 (74) 98 Room Air 06/26/21 20:00 100 Room Air 06/26/21 20:00 37.0 06/26/21 19:00 80 06/26/21 19:00 74 22 96/60 (72) 100 Room Air 06/26/21 18:00 72 19 89/52 (64) 95 Room Air 06/26/21 17:00 73 23 98/56 (70) 100 Room Air 06/26/21 16:00 100 Room Air 06/26/21 16:00 70 22 98 Room Air 06/26/21 16:00 36.2 Room Air 06/26/21 15:00 65 23 99 Room Air 06/26/21 14:54 97 Room Air 06/26/21 14:00 67 21 109/63 (78) 100 Room Air 06/26/21 13:00 60 20 94/65 (75) 100 Room Air 06/26/21 12:37 68 06/26/21 12:00 70 17 102/59 (73) 100 Room Air 06/26/21 12:00 100 Room Air 06/26/21 11:30 36.4 06/26/21 11:00 68 16 110/73 (85) 98 Room Air I & O 06/27/21 07:00 Intake Total 1280 ml Output Total 11 ml Balance 1269 ml Capillary Refill : Less Than 3 Seconds General Appearance: No Apparent Distress HEENT: PERRL/EOMI Neck: Full Range of Motion Respiratory: Chest Non Tender, Lungs Clear Cardiovascular: Regular Rate, Rhythm Gastrointestinal: normal bowel sounds, soft Extremity: Normal Capillary Refill Neurologic/Psychiatric: Alert, Oriented x3 Skin: Normal Color Lymphatic: No Adenopathy Results Lab Laboratory Tests 06/27/21 04:47: White Blood Count 10.4, Red Blood Count 3.13L, Hemoglobin 9.8L, Hematocrit 30L, Mean Corpuscular Volume 96, Mean Corpuscular Hemoglobin 31, Mean Corpuscular Hemoglobin Concent 33, Red Cell Distribution Width 17.9H, Platelet Count 655H, Mean Platelet Volume 10.0, Immature Granulocyte % (Auto) 6, Neutrophils (%) (Auto) 70, Lymphocytes (%) (Auto) 16, Monocytes (%) (Auto) 4, Eosinophils (%) (Auto) 4, Basophils (%) (Auto) 1, Neutrophils # (Auto) 7.3, Lymphocytes # (Auto) 1.7, Monocytes # (Auto) 0.4, Eosinophils # (Auto) 0.4H, Basophils # (Auto) 0.1, Immature Granulocyte # (Auto) 0.6H, Sodium Level 136, Potassium Level 3.7, Chloride Level 105, Carbon Dioxide Level 23, Anion Gap 8, Blood Urea Nitrogen 12, Creatinine 0.82, Estimat Glomerular Filtration Rate 80, BUN/Creatinine Ratio 15, Glucose Level 123H, Calcium Level 8.1L, Corrected Calcium 9.5, Phosphorus Level 1.6L, Magnesium Level 1.7, Total Bilirubin 0.4, Aspartate Amino Transf (AST/SGOT) 22, Alanine Aminotransferase (ALT/SGPT) 6, Alkaline Phosphatase 126, Total Protein 5.2L, Albumin 2.3L Microbiology 06/16/21 MRSA Screen - Final, Complete MRSA not isolated 06/16/21 Urine Culture - Final, Complete NO GROWTH 06/16/21 Blood Culture - Final, Complete Staphylococcus capitis Assessment/Plan Assessment/Plan Assess & Plan/Chief Complaint ptx s/p thorovent placement. placed to seal. will follow serial cxr's Clinical Quality Measures DVT/VTE Risk/Contraindication: Contraindications-Pharm: Other *list below* Other: OR MANUELA VALENCIA MD Jun 27, 2021 10:02
--- NOTE | 2021-06-27 10:31 | Progress Note - Hospitalist ---
Subjective HPI/CC On Admission Date Seen by Provider: Jun 27, 2021 Time Seen by Provider: 10:10 CC: right hip fracture HPI: 66 yr old WF intellectually delayed individual who lives in a longterm. She presented with a right hip fracture. She hadn't been eating or drinking for a few days. Labs revealed dehydration. She was assessed in the ER and found to have a right hip fracture due to favoring that leg and wouldn't walk like she usually does. She had an uneventful hip fracture repair by Dr. Batista. IV fluids maintained with good resolution of hypernatremia. Subjective/Events-last exam She is awake and alert. She is nonverbal. She appears comfortable at this time. Focused Exam Lactate Level 06/24/21 15:30: Lactic Acid Level 0.75 Objective Exam Vital Signs Vital Signs Date Time Temp Pulse Resp B/P (MAP) Pulse Ox O2 Delivery O2 Flow Rate FiO2 06/27/21 09:00 67 20 93/66 (75) 100 Room Air 06/27/21 08:00 36.3 06/25/21 08:00 2.00 06/24/21 16:00 50 Capillary Refill : Less Than 3 Seconds General Appearance: No Apparent Distress, Chronically ill, Thin Respiratory: No Respiratory Distress, Rhonci, Other (coarse breath sounds bilaterally) Cardiovascular: Regular Rate, Rhythm, No Murmur Gastrointestinal: Normal Bowel Sounds, Soft Extremity: Normal Inspection, Pedal Edema Neurologic/Psychiatric: Alert, Aphasia, Other (moving all extremities spontaneously) Skin: Warm/Dry, Pallor Results/Procedures Lab Laboratory Tests 06/27/21 04:47 Patient resulted labs reviewed. Imaging: Reviewed Imaging Report Assessment/Plan Assessment and Plan Assess & Plan/Chief Complaint Pneumothorax Pneumonia Zosyn Chest tube removed Repeat chest xray pending Not requiring supplemental oxygen Surgery following Dysphagia Goals of care discussion Modified barium swallow consistent with aspiration NPO PEG placed 06/24 Tube feeding Hip fracture Ortho following s/p surgical repair 06/17 Pain regimen Bowel regimen PT/OT Postoperative anemia due to acute blood loss s/p 1 unit PRBC Hgb stable Cognitive impairment Social work consulted Guardian in place, Cristina Felix [phone] DVT prophylaxis: Lovenox Acute respiratory failue with hypoxia, resolved Diagnosis/Problems Diagnosis/Problems (1) Pneumothorax Status: Acute (2) Pneumonia Status: Acute (3) Closed right hip fracture Status: Acute (4) Anemia Status: Acute (5) Dysphagia Status: Acute (6) Mental disability Status: Chronic (7) Acute respiratory failure with hypoxia Status: Resolved Resolution Date/Time: 06/27/21 @ 10:30 Clinical Quality Measures DVT/VTE Risk/Contraindication: Contraindications-Pharm: Other *list below* Other: OR HEBER ÁLVAREZ MD Jun 27, 2021 10:31
--- NOTE | 2021-06-27 10:43 | Diagnostic Imaging Report ---
EXAMINATION: Chest 1 view HISTORY: Pneumothorax COMPARISON: 06/26/2021 FINDINGS: Left-sided chest tube is present. There is airspace opacity in the right upper zone. No pleural effusion. No pneumothorax is seen. Heart size is normal. IMPRESSION: 1. No pneumothorax. 2. Unchanged right upper zone airspace opacity. Dictated by: Dictated on workstation # [id number]
--- NOTE | 2021-06-27 10:53 | Tele-ICU Progress Note ---
Subjective Date Seen by a Provider: Jun 27, 2021 Time Seen by a Provider: 09:30 Sepsis Event Evaluation Height, Weight, BMI Height: 5'0" Weight: 96lbs. oz. 43.992822nv; 15.00 BMI Method:Stated Focused Exam Lactate Level 06/24/21 15:30: Lactic Acid Level 0.75 Exam Exam Patient acknowledged, consented, and participated in this virtual visit which was conducted using real time audio/video Vital Signs Date Time Temp Pulse Resp B/P (MAP) Pulse Ox O2 Delivery O2 Flow Rate FiO2 06/27/21 10:00 78 24 106/78 (87) 95 Room Air 06/27/21 09:00 67 20 93/66 (75) 100 Room Air 06/27/21 08:00 36.3 06/27/21 08:00 100 Room Air 06/27/21 08:00 67 21 104/60 (75) 98 Room Air 06/27/21 07:00 60 06/27/21 07:00 58 21 91/53 (66) 99 Room Air 06/27/21 06:00 73 18 116/64 (81) 99 Room Air 06/27/21 05:40 37.0 06/27/21 05:00 68 29 101/79 (86) 96 Room Air 06/27/21 04:00 100 Room Air 06/27/21 04:00 75 21 100/62 (75) 98 Room Air 06/27/21 03:00 63 25 91/52 (65) 100 Room Air 06/27/21 02:00 82 24 91/64 (73) 97 Room Air 06/27/21 01:00 70 06/27/21 01:00 69 25 88/61 (70) 98 Room Air 06/27/21 00:56 36.6 06/27/21 00:00 71 27 95/65 (75) 98 Room Air 06/27/21 00:00 100 Room Air 06/26/21 23:00 79 17 95/60 (72) 100 Room Air 06/26/21 22:00 66 17 101/59 (73) 100 Room Air 06/26/21 21:00 77 22 101/64 (76) 100 Room Air 06/26/21 20:58 96 Room Air 06/26/21 20:00 67 25 86/68 (74) 98 Room Air 06/26/21 20:00 100 Room Air 06/26/21 20:00 37.0 06/26/21 19:00 80 06/26/21 19:00 74 22 96/60 (72) 100 Room Air 06/26/21 18:00 72 19 89/52 (64) 95 Room Air 06/26/21 17:00 73 23 98/56 (70) 100 Room Air 06/26/21 16:00 100 Room Air 06/26/21 16:00 70 22 98 Room Air 06/26/21 16:00 36.2 Room Air 06/26/21 15:00 65 23 99 Room Air 06/26/21 14:54 97 Room Air 06/26/21 14:00 67 21 109/63 (78) 100 Room Air 06/26/21 13:00 60 20 94/65 (75) 100 Room Air 06/26/21 12:37 68 06/26/21 12:00 70 17 102/59 (73) 100 Room Air 06/26/21 12:00 100 Room Air 06/26/21 11:30 36.4 06/26/21 11:00 68 16 110/73 (85) 98 Room Air I & O 06/27/21 06:59 Intake Total 1280 ml Output Total 11 ml Balance 1269 ml Height & Weight Height: 5'0" Weight: 96lbs. oz. 43.963909qz; 15.00 BMI Method:Stated General Appearance: No Apparent Distress, Chronically ill, Thin HEENT: PERRL/EOMI Neck: Full Range of Motion Respiratory: No Respiratory Distress, Rhonci, Other (coarse breath sounds bilaterally) Cardiovascular: Regular Rate, Rhythm, No Murmur Capillary Refill: Less Than 3 Seconds Gastrointestinal: normal bowel sounds, soft Extremity: Normal Inspection, Pedal Edema Neurologic/Psychiatric: Alert, Aphasia, Other (moving all extremities spontaneously) Skin: Warm/Dry, Pallor Lymphatic: No Adenopathy Results Lab Laboratory Tests 06/26/21 04:16 06/27/21 04:47 Assessment/Plan Assessment/Plan Tele-ICU Physician , Progress Note ) Available chart/ vitals / labs / Images reviewed Video assessment done using teleICU camera, rest of exam as per RN Discussed with RN , EXAM PER RN Events overnight : off bipap am Afebrile FiO2 - ra I/O = Drips: Pressors: , hemodynamically stable Consultants: sx Hospital course: (06/16) 66f admitted for Intramedullary Nailing of Right Intertrochanteric Femur Fracture (06/24) s/p PEG placement. 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 Discussed with RN to reach out if any questions or concerns A total of 33 minutes of critical care time was devoted to this patient today, required to treat and/or prevent further deterioration of critical care condition ( as above SOMMER PEREZ MD Jun 27, 2021 10:53
[2021-06-27] MEDS ORDERED: PIPERACILLIN/TAZO 4.5 GM VIAL (ZOSYN) IV ONE (14:18)
[2021-06-28] VITALS (18 sets, daily range): BP systolic 84–107; BP diastolic 50–88
[2021-06-28 05:02] LABS: BASOPHILS # (AUTO) 0.1 10^3/uL (0.0-0.1); BASOPHILS % (AUTO) 1 % (0-10); EOSINOPHILS # (AUTO) 0.5 10^3/uL (0.0-0.3); EOSINOPHILS % (AUTO) 6 % (0-10); HEMATOCRIT 30 % (35-52); HEMOGLOBIN 9.7 g/dL (11.5-16.0); LYMPHOCYTES # (AUTO) 2.3 10^3/uL (1.0-4.0); LYMPHOCYTES % (AUTO) 24 % (12-44); MEAN CORPUSCULAR HEMOGLOBIN 32 pg (25-34); MEAN CORPUSCULAR HGB CONC 33 g/dL (32-36); MEAN CORPUSCULAR VOLUME 96 fL (80-99); MEAN PLATELET VOLUME 9.8 fL (9.0-12.2); MONOCYTES # (AUTO) 0.5 10^3/uL (0.0-1.0); MONOCYTES % (AUTO) 5 % (0-12); NEUTROPHILS # (AUTO) 5.8 10^3/uL (1.8-7.8); NEUTROPHILS % (AUTO) 60 % (42-75); PLATELET COUNT 633 10^3/uL (130-400); WHITE BLOOD COUNT 9.6 10^3/uL (4.3-11.0)
[2021-06-28 05:23] LABS: ALBUMIN 2.2 GM/DL (3.2-4.5)
[2021-06-28 05:24] LABS: CALCIUM 8.1 MG/DL (8.5-10.1)
[2021-06-28 05:25] LABS: TOTAL PROTEIN 5.1 GM/DL (6.4-8.2)
[2021-06-28 05:27] LABS: BILIRUBIN,TOTAL 0.4 MG/DL (0.1-1.0)
[2021-06-28 05:29] LABS: CREATININE SERUM 0.79 MG/DL (0.60-1.30); PHOSPHORUS 2.4 MG/DL (2.3-4.7)
[2021-06-28 05:31] LABS: MAGNESIUM 1.6 MG/DL (1.6-2.4)
[2021-06-28] MEDS: MAGNESIUM 1 GM/100 ML IVPB 100 ML IV SCH (06:01)
[2021-06-28] MEDS: POTASSIUM CL 10MEQ/50ML IVPB 50 ML IV SCH (06:01)
[2021-06-28] MEDS: KCL 20 MEQ TAB (K-DUR) PO SCH (06:02)
[2021-06-28] MEDS: RT-ALBUTEROL SULF 2.5 MG/3 ML PRE-MIX VIAL INH SCH ×3 (06:37→21:05)
[2021-06-28] MEDS: PIPERACILLIN SODIUM/TAZOBACTAM 4.5 GM in NS (IVPB) 100 ML IV SCH ×3 (07:03→21:33)
--- NOTE | 2021-06-28 07:20 | Physical Therapy Progress Note ---
Therapy Progress Note Patient was moved to ICU, will need new orders to continue PT when appropriate. CORINNA FERRER PT Jun 28, 2021 07:20
--- NOTE | 2021-06-28 07:26 | Progress Note - Surgery ---
DAHLIA PAYTON 06/28/21 0726: Subjective Date Seen by a Provider: Jun 28, 2021 Time Seen by a Provider: 07:00 Subjective/Events-last exam Pt is doing well, according to nurses feeding tube is working well and pneumothorax is not present. Review of Systems unable to obtain due to patient unable to respond Objective Exam Vital Signs Date Time Temp Pulse Resp B/P (MAP) Pulse Ox O2 Delivery O2 Flow Rate FiO2 06/28/21 06:37 98 Room Air 06/28/21 06:00 75 22 94/57 (65) 97 Room Air 06/28/21 05:17 81 17 105/68 (79) 98 Room Air 06/28/21 04:18 36.0 06/28/21 04:00 97 Room Air 06/28/21 04:00 76 10 87/54 (63) 96 Room Air 06/28/21 03:00 64 27 93/59 (70) 94 Room Air 06/28/21 02:00 71 27 103/55 (75) 93 Room Air 06/28/21 01:00 73 06/28/21 01:00 73 14 100/57 (72) 91 Room Air 06/28/21 00:00 78 24 90/50 (63) 95 Room Air 06/28/21 00:00 94 Room Air 06/28/21 00:00 36.3 06/27/21 23:00 58 23 106/65 (79) 95 Room Air 06/27/21 22:17 Room Air 06/27/21 22:00 61 20 95/63 (74) Room Air 06/27/21 21:00 75 28 100/57 (83) 93 Room Air 06/27/21 20:00 74 8 87/59 (77) 91 Room Air 06/27/21 19:49 36.5 06/27/21 19:24 94 Room Air 06/27/21 19:00 74 06/27/21 19:00 74 17 88/64 (77) Room Air 06/27/21 18:00 72 18 94/56 (69) 93 Room Air 06/27/21 17:00 66 13 95/64 (74) 92 Room Air 06/27/21 16:00 100 Room Air 06/27/21 16:00 78 15 95/79 (84) 93 Room Air 06/27/21 15:58 36.8 2/20/22 15:00 73 27 96/69 (78) 90 Room Air 06/27/21 14:00 62 13 104/65 (78) 92 Room Air 06/27/21 13:00 64 10 95/66 (76) 91 Room Air 06/27/21 12:33 67 06/27/21 12:00 66 20 87/58 (68) 94 Room Air 06/27/21 12:00 100 Room Air 06/27/21 11:00 74 17 96 Room Air 06/27/21 11:00 36.6 06/27/21 10:00 78 24 106/78 (87) 95 Room Air 06/27/21 09:00 67 20 93/66 (75) 100 Room Air 06/27/21 08:00 36.3 06/27/21 08:00 100 Room Air 06/27/21 08:00 67 21 104/60 (75) 98 Room Air I & O 06/28/21 07:00 Intake Total 1420 ml Output Total 2 ml Balance 1418 ml Capillary Refill : Less Than 3 Seconds General Appearance: No Apparent Distress, Chronically ill, Thin HEENT: PERRL/EOMI Neck: Full Range of Motion Respiratory: Chest Non Tender, No Respiratory Distress, Rhonci Cardiovascular: Regular Rate, Rhythm, No Murmur Gastrointestinal: non tender, no organomegaly Extremity: Normal Range of Motion; No Non Tender Neurologic/Psychiatric: Alert, Aphasia, Other (moving all extremities spontaneously) Skin: Warm/Dry, Pallor Lymphatic: No Adenopathy Results Lab Laboratory Tests 06/28/21 04:31: White Blood Count 9.6, Red Blood Count 3.06L, Hemoglobin 9.7L, Hematocrit 30L, Mean Corpuscular Volume 96, Mean Corpuscular Hemoglobin 32, Mean Corpuscular Hemoglobin Concent 33, Red Cell Distribution Width 18.0H, Platelet Count 633H, Mean Platelet Volume 9.8, Immature Granulocyte % (Auto) 5, Neutrophils (%) (Auto) 60, Lymphocytes (%) (Auto) 24, Monocytes (%) (Auto) 5, Eosinophils (%) (Auto) 6, Basophils (%) (Auto) 1, Neutrophils # (Auto) 5.8, Lymphocytes # (Auto) 2.3, Monocytes # (Auto) 0.5, Eosinophils # (Auto) 0.5H, Basophils # (Auto) 0.1, Immature Granulocyte # (Auto) 0.5H, Sodium Level 136, Potassium Level 4.0, Chloride Level 103, Carbon Dioxide Level 24, Anion Gap 9, Blood Urea Nitrogen 11, Creatinine 0.79, Estimat Glomerular Filtration Rate 83, BUN/Creatinine Ratio 14, Glucose Level 95, Calcium Level 8.1L, Corrected Calcium 9.5, Phosphorus Level 2.4, Magnesium Level 1.6, Total Bilirubin 0.4, Aspartate Amino Transf (AST/SGOT) 23, Alanine Aminotransferase (ALT/SGPT) 6, Alkaline Phosphatase 111, Total Protein 5.1L, Albumin 2.2L Microbiology 06/16/21 MRSA Screen - Final, Complete MRSA not isolated 06/16/21 Urine Culture - Final, Complete NO GROWTH 06/16/21 Blood Culture - Final, Complete Staphylococcus capitis Assessment/Plan Assessment/Plan Assessment/Plan Pneumothorax Resolved Cachexia Peg tube working well reported by nurses, monitor and repeat labs Cognitive impairment Social work consulted Guardian in place, Cristina Washington [phone] Clinical Quality Measures DVT/VTE Risk/Contraindication: Contraindications-Pharm: Other *list below* Other: OR JULIO MANZO DO 06/28/21 1342: Subjective Time Seen by a Provider: 13:21 Review of Systems pt non-communicative Objective Exam General Appearance: No Apparent Distress, Chronically ill, Thin HEENT: Other (edentulous) Respiratory: No Accessory Muscle Use, No Respiratory Distress, Decreased Breath Sounds (left), Rhonci, Other (thoravent in place, no leak) Cardiovascular: Regular Rate, Rhythm, No Murmur Gastrointestinal: non tender, soft, no organomegaly Assessment/Plan Assessment/Plan Assessment/Plan Pneumothorax Resolved - will repeat CXR tomorrow and probably pull thoravent Cachexia Peg tube working well reported by nurses, monitor and repeat labs Cognitive impairment Guardian in place, Cristina [place] [phone] Supervisory-Addendum Brief Verification & Attestation Participated in pt care: history, MDM, physical Personally performed: exam, history, MDM, supervision of care Care discussed with: Medical Student Procedures: n/a Verification and Attestation of Medical Student E/M Service A medical student performed and documented this service. I then reviewed and verified all information documented by the medical student and made modifications to such information, when appropriate. I personally performed a physical exam, medical decision making and then discussed any differences between the notes and made revisions as necessary to create one note. Julio Manzo , 06/28/21 , 13:42 DAHLIA PAYTON Jun 28, 2021 07:26 JULIO MANZO DO Jun 28, 2021 13:42
[2021-06-28] MEDS ORDERED: NORMAL SALINE 250 ML ONE (07:59)
[2021-06-28] MEDS: IRON SUCROSE 200 MG/10 ML (VENOFER) VIAL IV SCH (08:21)
[2021-06-28] MEDS: SENNOSIDES 8.6 MG (SENOKOT) TAB PO SCH ×2 (08:22→21:29)
[2021-06-28] MEDS: DOCUSATE SODIUM 100 MG (COLACE) CAP PO SCH ×2 (08:22→21:29)
--- NOTE | 2021-06-28 11:01 | Tele-ICU Progress Note ---
Subjective Date Seen by a Provider: Jun 28, 2021 Time Seen by a Provider: 11:00 Sepsis Event Evaluation Height, Weight, BMI Height: 5'0" Weight: 96lbs. oz. 43.096565gi; 15.00 BMI Method:Stated Exam Exam Patient acknowledged, consented, and participated in this virtual visit which was conducted using real time audio/video Vital Signs Date Time Temp Pulse Resp B/P (MAP) Pulse Ox O2 Delivery O2 Flow Rate FiO2 06/28/21 10:00 64 12 87/68 (74) 95 Room Air 06/28/21 09:00 68 100/68 (79) 97 Room Air 06/28/21 08:00 97 Room Air 06/28/21 08:00 61 24 98/65 (76) 99 Room Air 06/28/21 08:00 36.5 Room Air 06/28/21 07:21 71 06/28/21 06:37 98 Room Air 06/28/21 06:00 75 22 94/57 (65) 97 Room Air 06/28/21 05:17 81 17 105/68 (79) 98 Room Air 06/28/21 04:18 36.0 06/28/21 04:00 97 Room Air 06/28/21 04:00 76 10 87/54 (63) 96 Room Air 06/28/21 03:00 64 27 93/59 (70) 94 Room Air 06/28/21 02:00 71 27 103/55 (75) 93 Room Air 06/28/21 01:00 73 06/28/21 01:00 73 14 100/57 (72) 91 Room Air 06/28/21 00:00 78 24 90/50 (63) 95 Room Air 06/28/21 00:00 94 Room Air 06/28/21 00:00 36.3 06/27/21 23:00 58 23 106/65 (79) 95 Room Air 06/27/21 22:17 Room Air 06/27/21 22:00 61 20 95/63 (74) Room Air 06/27/21 21:00 75 28 100/57 (83) 93 Room Air 06/27/21 20:00 74 8 87/59 (77) 91 Room Air 06/27/21 19:49 36.5 06/27/21 19:24 94 Room Air 06/27/21 19:00 74 06/27/21 19:00 74 17 88/64 (77) Room Air 06/27/21 18:00 72 18 94/56 (69) 93 Room Air 06/27/21 17:00 66 13 95/64 (74) 92 Room Air 06/27/21 16:00 100 Room Air 06/27/21 16:00 78 15 95/79 (84) 93 Room Air 06/27/21 15:58 36.8 06/27/21 15:00 73 27 96/69 (78) 90 Room Air 06/27/21 14:00 62 13 104/65 (78) 92 Room Air 06/27/21 13:00 64 10 95/66 (76) 91 Room Air 06/27/21 12:33 67 06/27/21 12:00 66 20 87/58 (68) 94 Room Air 06/27/21 12:00 100 Room Air I & O 06/28/21 07:00 Intake Total 1620 ml Output Total 2 ml Balance 1618 ml Height & Weight Height: 5'0" Weight: 96lbs. oz. 43.137058ug; 15.00 BMI Method:Stated General Appearance: No Apparent Distress, Chronically ill, Thin HEENT: PERRL/EOMI Neck: Full Range of Motion Respiratory: Chest Non Tender, No Respiratory Distress, Rhonci Cardiovascular: Regular Rate, Rhythm, No Murmur Capillary Refill: Less Than 3 Seconds Gastrointestinal: non tender, no organomegaly Extremity: Normal Range of Motion; No Non Tender Neurologic/Psychiatric: Alert, Aphasia, Other (moving all extremities spontaneously) Skin: Warm/Dry, Pallor Lymphatic: No Adenopathy Results Lab Laboratory Tests 06/27/21 04:47 06/28/21 04:31 Assessment/Plan Assessment/Plan Tele-ICU Physician , Progress Note ) Available chart/ vitals / labs / Images reviewed Video assessment done using teleICU camera, rest of exam as per RN Discussed with RN , EXAM PER RN Events overnight : off bipap am Afebrile FiO2 - ra I/O = not reported UO Drips: Pressors: , hemodynamically stable Consultants: sx Hospital course: (06/16) 66f admitted for Intramedullary Nailing of Right Intertrochanteric Femur Fracture (06/24) s/p PEG placement. 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 Discussed with RN to reach out if any questions or concerns A total of 33 minutes of critical care time was devoted to this patient today, required to treat and/or prevent further deterioration of critical care condition ( as above SOMMER PEREZ MD Jun 28, 2021 11:01
--- NOTE | 2021-06-28 17:33 | Progress Note - Hospitalist ---
Subjective HPI/CC On Admission Date Seen by Provider: Jun 28, 2021 Time Seen by Provider: 09:20 CC: right hip fracture HPI: 66 yr old WF intellectually delayed individual who lives in a long term. She presented with a right hip fracture. She hadn't been eating or drinking for a few days. Labs revealed dehydration. She was assessed in the ER and found to have a right hip fracture due to favoring that leg and wouldn't walk like she usually does. She had an uneventful hip fracture repair by Dr. Batista. IV fluids maintained with good resolution of hypernatremia. Subjective/Events-last exam She is nonverbal. She is noncommunicative. She appears comfortable. Objective Exam Vital Signs Vital Signs Date Time Temp Pulse Resp B/P (MAP) Pulse Ox O2 Delivery O2 Flow Rate FiO2 06/28/21 17:00 72 22 Room Air 06/28/21 16:00 97 06/28/21 15:54 36.5 06/25/21 08:00 2.00 06/24/21 16:00 50 Capillary Refill : Less Than 3 Seconds General Appearance: No Apparent Distress, Chronically ill, Thin Respiratory: No Respiratory Distress, Rhonci Cardiovascular: Regular Rate, Rhythm, No Murmur Gastrointestinal: Normal Bowel Sounds, Soft Extremity: Normal Inspection, No Pedal Edema Neurologic/Psychiatric: Alert, Aphasia Skin: Warm/Dry, Pallor Results/Procedures Lab Laboratory Tests 06/28/21 04:31 Patient resulted labs reviewed. Imaging: Reviewed Imaging Report Assessment/Plan Assessment and Plan Assess & Plan/Chief Complaint Pneumothorax Pneumonia Zosyn ThoraVent remains in place Repeat chest xray without pneumothorax Not requiring supplemental oxygen Surgery following Dysphagia Goals of care discussion Modified barium swallow consistent with aspiration NPO PEG placed 06/24 Tube feeding Hip fracture Ortho following s/p surgical repair 06/17 Pain regimen Bowel regimen PT/OT Postoperative anemia due to acute blood loss s/p 1 unit PRBC Hgb stable Cognitive impairment Social work consulted Guardian in place, Cristina [place] [phone] DVT prophylaxis: Lovenox Acute respiratory failue with hypoxia, resolved Diagnosis/Problems Diagnosis/Problems (1) Pneumothorax Status: Acute (2) Pneumonia Status: Acute (3) Closed right hip fracture Status: Acute (4) Anemia Status: Acute (5) Dysphagia Status: Acute (6) Mental disability Status: Chronic (7) Acute respiratory failure with hypoxia Status: Resolved Resolution Date/Time: 06/27/21 @ 10:30 Clinical Quality Measures DVT/VTE Risk/Contraindication: Contraindications-Pharm: Other *list below* Other: OR HEBER ÁLVAREZ MD Jun 28, 2021 17:33
[2021-06-29 04:59] VITALS: BP 90/56
[2021-06-29] MEDS ORDERED: NS (IVPB) 100 ML ONE (05:19)
[2021-06-29] MEDS ORDERED: PIPERACILLIN/TAZO 4.5 GM VIAL (ZOSYN) IV ONE (05:19)
[2021-06-29 06:23] LABS: BASOPHILS # (AUTO) 0.1 10^3/uL (0.0-0.1); BASOPHILS % (AUTO) 1 % (0-10); EOSINOPHILS # (AUTO) 0.6 10^3/uL (0.0-0.3); EOSINOPHILS % (AUTO) 5 % (0-10); HEMATOCRIT 30 % (35-52); HEMOGLOBIN 9.9 g/dL (11.5-16.0); LYMPHOCYTES # (AUTO) 2.1 10^3/uL (1.0-4.0); LYMPHOCYTES % (AUTO) 20 % (12-44); MEAN CORPUSCULAR HEMOGLOBIN 32 pg (25-34); MEAN CORPUSCULAR HGB CONC 33 g/dL (32-36); MEAN CORPUSCULAR VOLUME 97 fL (80-99); MEAN PLATELET VOLUME 9.6 fL (9.0-12.2); MONOCYTES # (AUTO) 0.5 10^3/uL (0.0-1.0); MONOCYTES % (AUTO) 5 % (0-12); NEUTROPHILS # (AUTO) 6.8 10^3/uL (1.8-7.8); NEUTROPHILS % (AUTO) 64 % (42-75); PLATELET COUNT 649 10^3/uL (130-400); WHITE BLOOD COUNT 10.5 10^3/uL (4.3-11.0)
[2021-06-29 06:34] LABS: ALBUMIN 2.4 GM/DL (3.2-4.5); POTASSIUM 4.5 MMOL/L (3.6-5.0)
[2021-06-29 06:35] LABS: CALCIUM 8.6 MG/DL (8.5-10.1)
[2021-06-29 06:37] LABS: TOTAL PROTEIN 5.6 GM/DL (6.4-8.2)
[2021-06-29 06:38] LABS: BILIRUBIN,TOTAL 0.4 MG/DL (0.1-1.0)
[2021-06-29 06:40] LABS: CREATININE SERUM 0.83 MG/DL (0.60-1.30); PHOSPHORUS 3.1 MG/DL (2.3-4.7)
[2021-06-29 06:43] LABS: MAGNESIUM 1.7 MG/DL (1.6-2.4)
[2021-06-29] MEDS: POTASSIUM CL 10MEQ/50ML IVPB 50 ML IV SCH (06:46)
[2021-06-29] MEDS: PIPERACILLIN SODIUM/TAZOBACTAM 4.5 GM in NS (IVPB) 100 ML IV SCH (06:47)
[2021-06-29] MEDS: MAGNESIUM 1 GM/100 ML IVPB 100 ML IV SCH ×3 (06:47→10:57)
[2021-06-29] MEDS: KCL 20 MEQ TAB (K-DUR) PO SCH (06:47)
--- NOTE | 2021-06-29 07:25 | Physical Therapy Progress Note ---
Therapy Progress Note Per social services assistant report patient is d/c to home health. PT never received additional orders and patient will be removed from PT services. CORINNA FERRER PT Jun 29, 2021 07:25
--- NOTE | 2021-06-29 07:44 | Diagnostic Imaging Report ---
EXAM: CHEST 1 VIEW, AP/PA ONLY INDICATION: Pneumothorax. Pleural effusion. COMPARISON: 06/27/2021. FINDINGS: Stable left chest tube. No pneumothorax is identified. No pleural effusion. Normal heart size and central pulmonary vascularity. Suggestion of a pulmonary nodule in the right lower lobe measuring up to 1.7 cm. Persistent interstitial opacities in the upper lobes and perihilar regions. PEG tube. IMPRESSION: 1. Stable left chest tube. No pleural effusion or pneumothorax. 2. Density overlying the right lower lobe suggestive of a pulmonary nodule is new, possibly artifactual. This could be better evaluated with chest CT. 3. Stable interstitial opacities in both lungs. Dictated by: Dictated on workstation # [id number]
[2021-06-29] MEDS: RT-ALBUTEROL SULF 2.5 MG/3 ML PRE-MIX VIAL INH SCH ×2 (07:50→14:31)
[2021-06-29 07:58] VITALS: BP 103/52
--- NOTE | 2021-06-29 08:07 | Progress Note - Surgery ---
DAHLIA PAYTON 06/29/21 0807: Subjective Date Seen by a Provider: Jun 29, 2021 Time Seen by a Provider: 07:55 Subjective/Events-last exam Pt unable to communicate with terminal makeup operator mental disability. Review of Systems unable to obtain due to patient unable to respond Objective Exam Vital Signs Date Time Temp Pulse Resp B/P (MAP) Pulse Ox O2 Delivery O2 Flow Rate FiO2 06/29/21 07:58 36.4 72 16 103/52 (69) 91 Room Air 06/29/21 07:51 94 Room Air 06/29/21 04:59 36.2 77 22 90/56 (67) 94 Room Air 06/29/21 00:07 97 Room Air 06/28/21 23:17 78 22 93/50 (64) 95 Room Air 06/28/21 21:05 92 Room Air 06/28/21 20:00 97 Room Air 06/28/21 19:50 37.1 77 24 84/53 (63) 91 Room Air 06/28/21 17:00 72 22 Room Air 06/28/21 16:00 97 Room Air 06/28/21 16:00 69 16 93/55 (68) 97 Room Air 06/28/21 15:54 36.5 06/28/21 15:00 84 31 103/52 (69) 98 Room Air 06/28/21 14:32 93 Room Air 06/28/21 14:00 70 18 106/60 (75) 98 Room Air 06/28/21 13:00 74 10 100/59 (73) 92 Room Air 06/28/21 12:37 75 06/28/21 12:00 97 Room Air 06/28/21 12:00 71 26 107/88 (94) 91 Room Air 06/28/21 12:00 36.3 06/28/21 11:00 75 24 98/61 (73) 94 Room Air 06/28/21 10:00 64 12 87/68 (74) 95 Room Air 06/28/21 09:00 68 100/68 (79) 97 Room Air I & O 06/29/21 07:00 Intake Total 1425 ml Balance 1425 ml Capillary Refill : Less Than 3 Seconds General Appearance: No Apparent Distress, Chronically ill, Thin Neck: Full Range of Motion Respiratory: No Accessory Muscle Use, No Respiratory Distress, Rhonci, Other (chest tube in place left side) Cardiovascular: Regular Rate, Rhythm, No Murmur Gastrointestinal: non tender, soft, no organomegaly Extremity: Normal Inspection, No Pedal Edema Neurologic/Psychiatric: Alert, Aphasia Skin: Warm/Dry, Pallor Lymphatic: No Adenopathy Results Lab Laboratory Tests 06/29/21 06:15: White Blood Count 10.5, Red Blood Count 3.12L, Hemoglobin 9.9L, Hematocrit 30L, Mean Corpuscular Volume 97, Mean Corpuscular Hemoglobin 32, Mean Corpuscular Hemoglobin Concent 33, Red Cell Distribution Width 18.6H, Platelet Count 649H, Mean Platelet Volume 9.6, Immature Granulocyte % (Auto) 4, Neutrophils (%) (Auto) 64, Lymphocytes (%) (Auto) 20, Monocytes (%) (Auto) 5, Eosinophils (%) (Auto) 5, Basophils (%) (Auto) 1, Neutrophils # (Auto) 6.8, Lymphocytes # (Auto) 2.1, Monocytes # (Auto) 0.5, Eosinophils # (Auto) 0.6H, Basophils # (Auto) 0.1, Immature Granulocyte # (Auto) 0.5H, Sodium Level 135, Potassium Level 4.5, Chloride Level 103, Carbon Dioxide Level 26, Anion Gap 6, Blood Urea Nitrogen 13, Creatinine 0.83, Estimat Glomerular Filtration Rate 79, BUN/Creatinine Ratio 16, Glucose Level 98, Calcium Level 8.6, Corrected Calcium 9.9, Phosphorus Level 3.1, Magnesium Level 1.7, Total Bilirubin 0.4, Aspartate Amino Transf (AST/SGOT) 23, Alanine Aminotransferase (ALT/SGPT) 6, Alkaline Phosphatase 109, Total Protein 5.6L, Albumin 2.4L Microbiology 06/16/21 MRSA Screen - Final, Complete MRSA not isolated 06/16/21 Urine Culture - Final, Complete NO GROWTH 06/16/21 Blood Culture - Final, Complete Staphylococcus capitis Assessment/Plan Assessment/Plan Assessment/Plan Pneumothorax Resolved - CXR on 06/29 shows no pneumothorax will remove thoravent today Cachexia Peg tube working well reported by nurses, monitor and repeat labs Cognitive impairment Guardian in place, Cristina Washington [phone] Clinical Quality Measures DVT/VTE Risk/Contraindication: Contraindications-Pharm: Other *list below* Other: OR JULIO MANZO DO 06/29/21 1350: Subjective Time Seen by a Provider: 11:26 Subjective/Events-last exam Pt seen and examined, no changes according to nurse and she is set to be discharged back to care facility. Objective Exam General Appearance: No Apparent Distress, Chronically ill, Thin Respiratory: No Accessory Muscle Use, No Respiratory Distress, Rhonci, Other (chest tube in place left side) Cardiovascular: Regular Rate, Rhythm Gastrointestinal: non tender, soft, no organomegaly Assessment/Plan Assessment/Plan Assessment/Plan Pneumothorax Resolved - CXR on 06/29 shows no pneumothorax will remove thoravent today, ok to go home per surgery standpoint. Thoravent removed without difficulty and occlusive dressing placed. Cachexia Peg tube working well reported by nurses, monitor and repeat labs Cognitive impairment Supervisory-Addendum Brief Verification & Attestation Participated in pt care: history, MDM, physical Personally performed: exam, history, MDM, supervision of care Care discussed with: Medical Student Procedures: n/a Verification and Attestation of Medical Student E/M Service A medical student performed and documented this service. I then reviewed and verified all information documented by the medical student and made modifications to such information, when appropriate. I personally performed a ph ysical exam, medical decision making and then discussed any differences between the notes and made revisions as necessary to create one note. Julio Manzo , 06/29/21 , 13:50 DAHLIA PAYTON Jun 29, 2021 08:07 JULIO MANZO DO Jun 29, 2021 13:50
[2021-06-29] MEDS: SENNOSIDES 8.6 MG (SENOKOT) TAB PO SCH ×2 (09:49→09:56)
[2021-06-29] MEDS: DOCUSATE SODIUM 100 MG (COLACE) CAP PO SCH ×2 (09:49→09:56)
[2021-06-29 12:25] VITALS: BP 130/58
--- NOTE | 2021-06-29 12:36 | Discharge Summary ---
Discharge Summary Reconcile Patient Problems Problems Reviewed?: Yes Instructions for Patient Via [facility], Assessment/Instructions Take medications as prescribed. Begin tube feedings as recommended. Must remain NPO. Beginning speech therapy. Physical and occupation therapy ordered. Follow up with your primary care physician, Dr. Arellano, in a week or two. Return with worsening shortness of breath, pain, or if you feel like you are getting worse. Physician to follow Patient: Eileen Discharge Diet for Home: Tube Feeding Hospital Course Date of Admission: Jun 16, 2021 at 16:23 Admission Diagnosis: Hip fracture Family Physician/Provider: Julian Arellano DO Date of Discharge: 06/29/21 Discharge Diagnosis: Hip fracture, dysphagia, severe protein calorie malnutrition, pneumonia, pneumothorax Hospital Course: Kandace Che is a 66 year old female with cognitive impairment who was admitted with a hip fracture. She underwent surgical repair. She had some post-operative anemia and required one transfusion and remained stable after that. She also had issues with dysphagia and required PEG placement. She was started on tube feeding. She also developed a pneumonia and was given a course of antibiotics. She had a pneumothorax which required chest tube. She improved and was discharged home with home with home health for ongoing therapy needs. She already had caregivers set up in the home. She should follow up with Dr. Arellano in about a week. Labs and Pending Lab Test: Laboratory Tests 06/29/21 06:15: White Blood Count 10.5, Red Blood Count 3.12L, Hemoglobin 9.9L, Hematocrit 30L, Mean Corpuscular Volume 97, Mean Corpuscular Hemoglobin 32, Mean Corpuscular Hemoglobin Concent 33, Red Cell Distribution Width 18.6H, Platelet Count 649H, Mean Platelet Volume 9.6, Immature Granulocyte % (Auto) 4, Neutrophils (%) (Auto) 64, Lymphocytes (%) (Auto) 20, Monocytes (%) (Auto) 5, Eosinophils (%) (Auto) 5, Basophils (%) (Auto) 1, Neutrophils # (Auto) 6.8, Lymphocytes # (Auto) 2.1, Monocytes # (Auto) 0.5, Eosinophils # (Auto) 0.6H, Basophils # (Auto) 0.1, Immature Granulocyte # (Auto) 0.5H, Sodium Level 135, Potassium Level 4.5, Chloride Level 103, Carbon Dioxide Level 26, Anion Gap 6, Blood Urea Nitrogen 13, Creatinine 0.83, Estimat Glomerular Filtration Rate 79, BUN/Creatinine Ratio 16, Glucose Level 98, Calcium Level 8.6, Corrected Calcium 9.9, Phosphorus Level 3.1, Magnesium Level 1.7, Total Bilirubin 0.4, Aspartate Amino Transf (AST/SGOT) 23, Alanine Aminotransferase (ALT/SGPT) 6, Alkaline Phosphatase 109, Total Protein 5.6L, Albumin 2.4L Microbiology 06/16/21 MRSA Screen - Final, Complete MRSA not isolated 06/16/21 Urine Culture - Final, Complete NO GROWTH 06/16/21 Blood Culture - Final, Complete Staphylococcus capitis Home Meds Active Reported Nystatin 1 Each Powder.ea. 1 Each MC BID PRN Diclofenac-Misoprost 50-0.2 Tb (Diclofenac Sodium/Misoprostol) 1 Each Tab.ir.dr 1 Each PO BID PRN Fexofenadine HCl 180 Mg Tablet 180 Mg PO HS Tylenol (Acetaminophen) 325 Mg Tablet 650 Mg PO Q4H PRN Melatonin 3 Mg Tablet 3 Mg PO HS Oyster Shell Calcium-Vit D Tab (Calcium Carbonate/Vitamin D3) 1 Each Tablet 1 Ea PO BID Divalproex Sodium 125 Mg Cap.sprink 250 Mg PO 0800,1700 Vitamin B Complex 1 Each Tablet 1 Each PO DAILY Divalproex Sodium 125 Mg Cap.sprink 125 Mg PO HS TAKES WITH FOOD Cetirizine HCl 10 Mg Tablet 10 Mg PO 1700 Consulations Surgery, TeleICU Patient Allergies: Coded Allergies: No Known Drug Allergies (Unverified , 10/26/16) Height (Feet): 5 Height (Inches): 0 Weight (Pounds): 96 Home Health Need/Face to Face Date of Face to Face: Jun 29, 2021 Clinical Findings: Generalized weakness and fatigue, Muscle weakness I have seen Pt [id number]: Yes Discharged To: Home Diagnosis/Conditions: Hip fracture Dysphagia Malnutrition Problems/Diagnosis/Condition: (1) Dysphagia (2) Severe protein-calorie malnutrition (3) Closed right hip fracture (4) Mental disability Patient is Homebound due to: CognItive deficits, Patrica fall risk due to instabilty, Muscle weakness Homebound Status Due to the above stated illness, injury or surgical procedure (medical condition or diagnosis) and associated clinical findings, the patient is homebound because of his/her inability to leave home except with aid of a supportive device and/or person AND leaving the home requires a considerable and taxing effort or is medically contraindicated. Pt req the following assistanc: Aid of another person Home Health Nursing Orders Home Health Services Order: Nursing Services, Spiritual Minister-Evaluate & Treat, Physical Therapy-Evaluate & Treat, Speech Language-Evaluate & Treat Home Health Infusion Therapy Line Start Date: Jun 16, 2021 Therapy Orders Therapy Orders: OT (must have SN or PT order), Physical Therapy Therapy Specific Orders: Eval assistive deivces, Teach strategies/cognitive deficits, Teach enviro modifications/safety, Eval & treat dysphagia, Gait training, Increase strength/endurance Certify Stmt I certify that this patient is under my care and that I, a nurse practitioner or a physician; a optical assistant working with me, had a face to face encounter that - meets the physician face to face encounter requirements with this patient as dated. Discharge Physical Exam General: Alert, No Acute Distress HEENT: Atraumatic, EOMI Lungs: Clear to Auscultation, Normal Air Movement Heart: Regular Rate, No Murmurs Abdomen: Soft, Other (PEG tube) Extremities: No Edema Psych/Mental Status: Other (awake, alert, uncooperative, aphasia) HEBER ÁLVAREZ MD Jun 29, 2021 12:26
[2021-06-29 14:47] VITALS: BP 130/58
== END 2021-06-29 15:10 | disposition home health service (06) | DRG 480 ==
LOC: EDUNIT# 13:54 → ER 13:57 → 4TH 16:23 → ICU 06-24 13:37 → 4TH 06-28 16:33
PROVIDERS: ADMIT Internal Medicine; ATTEND Internal Medicine
PROC: 0QS636Z Reposition Right Upper Femur with Intramedullary Internal Fixation Device, Percutaneous Approach (ICD-10-PCS; principal; 2021-06-17 07:16)
PROC: 0W9B30Z Drainage of Left Pleural Cavity with Drainage Device, Percutaneous Approach (ICD-10-PCS; 2021-06-24)
PROC: 0DH68UZ Insertion of Feeding Device into Stomach, Via Natural or Artificial Opening Endoscopic (ICD-10-PCS; 2021-06-24)
PROC: 8E0ZXY6 Isolation (ICD-10-PCS; 2021-06-24)
DX: S72.141A Displaced intertrochanteric fracture of right femur, initial encounter for closed fracture (principal); J96.01 Acute respiratory failure with hypoxia; J69.0 Pneumonitis due to inhalation of food and vomit; E43 Unspecified severe protein-calorie malnutrition; D62 Acute posthemorrhagic anemia; J93.83 Other pneumothorax; E87.0 Hyperosmolality and hypernatremia; R78.81 Bacteremia; Z68.1 Body mass index [BMI] 19.9 or less, adult; R64 Cachexia; X58.XXXA Exposure to other specified factors, initial encounter; R33.9 Retention of urine, unspecified; R13.12 Dysphagia, oropharyngeal phase; B95.7 Other staphylococcus as the cause of diseases classified elsewhere; K29.50 Unspecified chronic gastritis without bleeding; F79 Unspecified intellectual disabilities; I95.9 Hypotension, unspecified; Q56 Indeterminate sex and pseudohermaphroditism; Z20.822 Contact with and (suspected) exposure to COVID-19
CPT/HCPCS: 36415; 36600; 70450; 71045; 72125; 74022; 74230; 76000; 80053; 80202; 81000; 82805; 82947; 83540; 83605; 83735; 83880; 84100; 84145; 85007; 85025; 85027; 85610; 85730; 86850; 86900; 86901; 86920; 87040; 87077; 87081; 87088; 87186; 87635; 87636; 87804; 93005; 94640; 94660; 94760; 96374

== ENCOUNTER → 2021-07-15 | Outpatient (CLI) | payer MEDICARE, MEDICAID ==
[~2021-07-15] MED LIST changes: +ACET325T38 PO; +CALC-140 PO; +CALC1TAB99 PO; +DICL1TAB PO; +DIVA125C10 PO; +FEXO-46 PO; +MELA3TAB39 PO; +NYST1POW22 MC; +VITA1TAB17 PO
--- NOTE | 2021-07-15 11:27 | Diagnostic Imaging Report ---
INDICATION: Right femur fracture. Postop followup. COMPARISON: 06/16/2021 FINDINGS: Multiple radiographic views of the right femur were obtained and show postsurgical changes of interval ORIF. Short intramedullary amy is seen within the proximal right femur. This intersects a screw which traverses the right femoral head and neck. As a result, there is improved alignment of the fracture fragments. No unexpected radiopaque foreign bodies are seen. Right femoral acetabular joint space appears appropriate. Right knee joint also appears intact. IMPRESSION: 1. Expected postsurgical changes of interval right femoral ORIF. Dictated by: Dictated on workstation # [id number]
== END ==
LOC: ORTHO 10:44
PROVIDERS: ATTEND Orthopaedic Surgery
DX: Z09 Encounter for follow-up examination after completed treatment for conditions other than malignant neoplasm (principal); Z98.890 Other specified postprocedural states
CPT/HCPCS: 73552

== ENCOUNTER → 2021-08-10 | Outpatient (CLI) | payer MEDICARE, MEDICAID ==
[~2021-08-10] MED LIST changes: +FEXO-249 PO; -FEXO-46 PO
== END ==
LOC: WOUNDCARE 14:02
PROVIDERS: ATTEND Family Medicine
DX: L89.153 Pressure ulcer of sacral region, stage 3 (principal); R15.9 Full incontinence of feces; R32 Unspecified urinary incontinence; L22 Diaper dermatitis; R63.4 Abnormal weight loss; F72 Severe intellectual disabilities; M62.81 Muscle weakness (generalized)
CPT/HCPCS: 99212

== ENCOUNTER → 2021-08-11 | Outpatient (CLI) | payer MEDICARE, MEDICAID | LOC: LAB 09:15 | PROVIDERS: ATTEND Family Medicine | DX: L89.153 Pressure ulcer of sacral region, stage 3 (principal); L22 Diaper dermatitis; F72 Severe intellectual disabilities; M62.81 Muscle weakness (generalized); R15.9 Full incontinence of feces; R32 Unspecified urinary incontinence; R64 Cachexia; R63.4 Abnormal weight loss | CPT/HCPCS: 36415; 85652; 86141 ==

== ENCOUNTER → 2021-08-17 | Outpatient (CLI) | payer MEDICARE, MEDICAID ==
--- NOTE | 2021-08-17 13:08 | Diagnostic Imaging Report ---
INDICATION: Right hip surgery. TIME OF EXAM: 10:17 AM. FINDINGS: Postop changes of the right hip are noted. There is an intramedullary amy and compression screw transfixing the proximal femur fracture. The femoroacetabular alignment is normal. The hardware appears to be intact. IMPRESSION: Satisfactory postop appearance to the right hip. Dictated by: Dictated on workstation # [id number]
== END ==
LOC: ORTHO 10:09
PROVIDERS: ATTEND Orthopaedic Surgery
DX: Z47.89 Encounter for other orthopedic aftercare (principal); Z98.890 Other specified postprocedural states
CPT/HCPCS: 73502

== ENCOUNTER → 2021-08-17 | Outpatient (CLI) | payer MEDICARE, MEDICAID | LOC: WOUNDCARE 11:29 | PROVIDERS: ATTEND Family Medicine | DX: L89.153 Pressure ulcer of sacral region, stage 3 (principal); L22 Diaper dermatitis; F72 Severe intellectual disabilities; I96 Gangrene, not elsewhere classified; M62.81 Muscle weakness (generalized); R15.9 Full incontinence of feces; R32 Unspecified urinary incontinence; R63.4 Abnormal weight loss | CPT/HCPCS: 11042; G0463 ==

== ENCOUNTER → 2021-08-20 | Outpatient (CLI) | payer MEDICARE, MEDICAID ==
[~2021-08-20] MED LIST changes: +CATHETER FLUSH 10 ML SYR IV PRN; +HOLD METFORMIN - RECEIVED CONTRAST 20 ML VIAL IV SCH; +IOHEXOL 350 MG/ML 100 ML (OMNIPAQUE 350) VIAL IV ONE; +NS 100 ML (IVPB) BAG IV ONE
[2021-08-20 11:29] LABS: CALCIUM 8.9 MG/DL (8.5-10.1); CREATININE SERUM 0.81 MG/DL (0.60-1.30); POTASSIUM 4.4 MMOL/L (3.6-5.0)
--- NOTE | 2021-08-20 12:57 | Diagnostic Imaging Report ---
EXAMINATION: CT chest, abdomen and pelvis with intravenous contrast. TECHNIQUE: Multiple contiguous axial images were obtained through the chest, abdomen and pelvis after the uneventful administration of intravenous contrast. All CT scans use one or more of the following dose optimizing techniques: automated exposure control, MA and/or KvP adjustment based on patient size and exam type or iterative reconstruction. HISTORY: ABN WEIGHT LOSS COMPARISON: None available. FINDINGS: Thyroid: 1.4 cm left thyroid nodule. Mediastinum: Heart size is normal without significant pericardial effusion. The aorta is normal in caliber. No suspicious lymphadenopathy. Lungs and airways: There is a moderate left pleural effusion. Minimal left basilar atelectasis. No pneumothorax. There is a 0.7 cm right lower lobe pulmonary nodule (series 3 image 86). The airways are normal. Solid organs: The liver is normal without focal lesion. The gallbladder is normal. There is no biliary ductal dilation. Pancreas is normal. Spleen is normal. There is a 4.5 cm mass which may originate from the left adrenal gland with central calcification and fat. There is a distinct fat plane between it and the kidney. The kidneys are normal without hydronephrosis. Bowel: A percutaneous gastrostomy tube is present. There is no bowel obstruction. There is a large amount of stool seen within the rectal vault. Peritoneum: There is no intraperitoneal free fluid or free air. No suspicious lymphadenopathy. Vasculature: Normal without aneurysm. Musculoskeletal: Degenerative changes of the spine without suspicious osseous lesion or compression fracture. Surgical changes from left hip arthroplasty. Surgical changes of the right femur. Chronic appearing left rib fracture. Pelvis: The uterus is nonvisualized. There is a cystic tubular structure within the right adnexa which measures up to 3.7 x 2.2 cm. The urinary bladder is normal. IMPRESSION: 1. A 4.5 cm heterogeneous enhancing mass within the left adrenal gland. Findings concerning for adrenal neoplasm such as adrenal cortical carcinoma. 2. A 0.7 cm right lower lobe pulmonary nodule. This can be followed up with dedicated CT chest in 6-12 months. 3. Cystic tubular structure within the right adnexa. This could represent adnexal cystic lesion versus dilated fallopian tube. Consider pelvic ultrasound for better characterization. 4. Moderate left pleural effusion. 5. A 1.4 cm left thyroid nodule. This could be further evaluated with dedicated thyroid ultrasound. Dictated by: Dictated on workstation # [id number]
== END ==
LOC: RAD 12:15
PROVIDERS: ATTEND Family Medicine
DX: E27.8 Other specified disorders of adrenal gland (principal); J90 Pleural effusion, not elsewhere classified; L89.153 Pressure ulcer of sacral region, stage 3; E04.1 Nontoxic single thyroid nodule; L22 Diaper dermatitis; M62.81 Muscle weakness (generalized); F72 Severe intellectual disabilities; R63.4 Abnormal weight loss; R15.9 Full incontinence of feces; R32 Unspecified urinary incontinence; R64 Cachexia; R91.1 Solitary pulmonary nodule
CPT/HCPCS: 36415; 71260; 74177; 80048; 84134

== ENCOUNTER → 2021-08-24 | Outpatient (CLI) | payer MEDICARE, MEDICAID ==
[~2021-08-24] MED LIST changes: -CATHETER FLUSH 10 ML SYR IV PRN; -HOLD METFORMIN - RECEIVED CONTRAST 20 ML VIAL IV SCH; -IOHEXOL 350 MG/ML 100 ML (OMNIPAQUE 350) VIAL IV ONE; -NS 100 ML (IVPB) BAG IV ONE
== END ==
LOC: ORTHO 14:02
PROVIDERS: ATTEND Family Medicine
DX: I96 Gangrene, not elsewhere classified (principal); L89.153 Pressure ulcer of sacral region, stage 3; D44.10 Neoplasm of uncertain behavior of unspecified adrenal gland; L22 Diaper dermatitis; F72 Severe intellectual disabilities; R15.9 Full incontinence of feces; R32 Unspecified urinary incontinence; R64 Cachexia; M62.81 Muscle weakness (generalized); Z68.1 Body mass index [BMI] 19.9 or less, adult
CPT/HCPCS: 99212

== ENCOUNTER → 2021-08-31 | Outpatient (CLI) | payer MEDICARE, MEDICAID | LOC: WOUNDCARE 14:04 | PROVIDERS: ATTEND Family Medicine | DX: L89.153 Pressure ulcer of sacral region, stage 3 (principal); L22 Diaper dermatitis; F72 Severe intellectual disabilities; D44.10 Neoplasm of uncertain behavior of unspecified adrenal gland; M62.81 Muscle weakness (generalized); I96 Gangrene, not elsewhere classified; R15.9 Full incontinence of feces; R32 Unspecified urinary incontinence; R64 Cachexia; R63.4 Abnormal weight loss | CPT/HCPCS: 11042; G0463 ==

== ENCOUNTER → 2021-09-21 | Outpatient (CLI) | payer MEDICARE, MEDICAID ==
[~2021-09-21] MED LIST changes: -FEXO-249 PO; +NF-ALLE180 PO
== END ==
LOC: WOUNDCARE 14:10
PROVIDERS: ATTEND Family Medicine
DX: I96 Gangrene, not elsewhere classified (principal); L89.153 Pressure ulcer of sacral region, stage 3; D44.10 Neoplasm of uncertain behavior of unspecified adrenal gland; F72 Severe intellectual disabilities; L22 Diaper dermatitis; M62.81 Muscle weakness (generalized); R15.9 Full incontinence of feces; R32 Unspecified urinary incontinence; R64 Cachexia; Z68.1 Body mass index [BMI] 19.9 or less, adult
CPT/HCPCS: A6212; G0463; 99212

== ENCOUNTER 2021-10-12 15:00 | Emergency (ER) | payer MEDICARE, MEDICAID ==
[~2021-10-12] VITALS: Ht 152 cm; Wt 34.0 kg
[2021-10-12] MEDS ORDERED: SODIUM BICARB 8.4% 50 MEQ/50 ML (ABBOTT) SYR INJ ONE (15:02)
[2021-10-12] MEDS ORDERED: EPINEPHrine 0.1 MG/ML 10 ML (HOSPIRA) SYR IJ ONE (15:02)
--- NOTE | 2021-10-12 15:33 | ED CPR ---
HPI-CPR General Chief Complaint: Code Blue Stated Complaint: CPR Source of Information: Patient, EMS Exam Limitations: Physical Impairments History of Present Illness Date Seen by Provider: Oct 12, 2021 Time Seen by Provider: 15:00 Initial Comments Patient to the ER by [facility] with witnessed arrest by staff in her own home. She has a GI cancer and her guardian, Cristina Washington said they were working on getting her on a palliative medicine. She was trying to get a DNR started however she had not gotten the doctors to sign off on it yet. Dr. Tolentino is her primary care doctor. EMS states she was in asystole when they arrived. They started working her did 3 rounds of epinephrine and got her into PEA on the second round of epinephrine and on the third round they had her return of spontaneous circulation. By time they arrived in the ER the patient had an LMA in place but had no pulse. Patient has significant baseline learning disabilities and does not speak at baseline. Allergies and Home Medications Allergies Coded Allergies: No Known Drug Allergies (Unverified , 10/26/16) Patient Home Medication List Home Medication List Reviewed: Yes Acetaminophen (Tylenol) 325 Mg Tablet, 650 MG PO Q4H PRN for PAIN-MILD (1-4), (Reported) Entered as Reported by: CASI SALCIDO on 06/17/21 1349 Calcium Carbonate/Vitamin D3 (Oyster Shell Calcium-Vit D Tab) 1 Each Tablet, 1 EA PO BID, (Reported) Entered as Reported by: CASI SALCIDO on 06/17/21 1349 Cetirizine HCl (Cetirizine HCl) 10 Mg Tablet, 10 MG PO 1700, (Reported) Entered as Reported by: MARCUS GONZALEZ on 10/26/16 1231 Diclofenac Sodium/Misoprostol (Diclofenac-Misoprost 50-0.2 Tb) 1 Each Tab.ir.dr, 1 EACH PO BID PRN for PAIN/INFLAMMATION, (Reported) Entered as Reported by: CASI SALCIDO on 06/17/21 1406 Divalproex Sodium (Divalproex Sodium) 125 Mg Cap.sprink, 125 MG PO HS, (Reported) Entered as Reported by: CASI SALCIDO on 06/17/21 1349 Divalproex Sodium (Divalproex Sodium) 125 Mg Cap.sprink, 250 MG PO 0800,1700, (Reported) Entered as Reported by: CASI SALCIDO on 06/17/21 1349 Fexofenadine HCl (Fexofenadine HCl) 180 Mg Tablet, 180 MG PO HS, (Reported) Entered as Reported by: CASI SALCIDO on 06/17/21 1349 Melatonin (Melatonin) 3 Mg Tablet, 3 MG PO HS, (Reported) Entered as Reported by: CASI SALCIDO on 06/17/21 1349 Nystatin (Nystatin) 1 Each Powder.ea., 1 EACH MC BID PRN for RASH, (Reported) Entered as Reported by: CASI SALCIDO on 06/17/21 1406 Vitamin B Complex (Vitamin B Complex) 1 Each Tablet, 1 EACH PO DAILY, (Reported) Entered as Reported by: CASI SALCIDO on 06/17/21 1349 Review of Systems Review of Systems Constitutional: No chills, No diaphoresis EENTM: No Blurred Vision, No Double Vision Respiratory: Denies Cough, Denies Shortness of Air Cardiovascular: Denies Chest Pain, Denies Lightheadedness Gastrointestinal: Denies Constipated, Denies Diarrhea Genitourinary: Denies Burning, Denies Discharge Musculoskeletal: No back pain, No joint pain All Other Systems Reviewed Negative Unless Noted: Yes Past Uyzgyrc-Psxjaf-Tihctn Hx Patient Social History Tobacco Use?: No Use of E-Cig and/or Vaping dev: No Substance use?: No Immunizations Up To Date Tetanus Booster (TDap): Unknown Seasonal Allergies Seasonal Allergies: Yes Past Medical History Surgeries: Yes Orthopedic Respiratory: No Currently Using CPAP: No Currently Using BIPAP: No Cardiac: No Neurological: Yes Developmental Disorder Genitourinary: No Gastrointestinal: No Musculoskeletal: Yes Fractures Endocrine: No HEENT: No Cancer: No Psychosocial: No Integumentary: No Blood Disorders: No Family Medical History No Pertinent Family Hx Physical Exam Vital Signs Capillary Refill : Height, Weight, BMI Height: 5'0" Weight: 96lbs. oz. [phone]; 15.00 BMI Method:Stated General Appearance: Cachetic, Severe Distress, Thin HEENT: Moist Mucous Membranes, Other (Eyes bilateral cataract) Neck: Full Range of Motion, Normal Inspection Respiratory: Lungs Clear, Normal Breath Sounds, No Accessory Muscle Use, No Respiratory Distress Cardiovascular: Regular Rate, Rhythm, No Edema, Normal Peripheral Pulses Gastrointestinal: Normal Bowel Sounds, Non Tender, Soft Extremity: Normal Capillary Refill, Normal Inspection, No Pedal Edema Neurologic/Psychiatric: Alert, Oriented x3 Skin: Normal Color, Warm/Dry Procedures/Interventions Patient Education: Explained Benefits Breath Sounds per Auscultation: Clear Heart Sounds per Auscultation: Regular Airway Exam: Mouth opens >2 fingers Sedation Adminstration Time: 1257 Re-examination Time: 1326 Reason for Intubation: CPR Date of ETT Placement: Oct 12, 2021 Time of ETT Placement: 15:10 Intubation Method: orotracheal Tube Size: 7 Positive End Tide CO2: Yes Breath Sounds after Intubation: bilateral-equal Intubation Complications: no complications Post Intubation Xray: No Felipe vision video laryngoscope used. Oxygen saturations went from 100% down to 94% during intubation. Some thin, yellow sweet smelling secretions were noted at the larynx on intubation. Progress/Results/Core Measures Progress Progress Note : Time: 15:32 Progress Note Cessation of resuscitative efforts at 1518. Discussed the case with Cristina the guardian and Galina the caregiver. The patient had a systole on original presentation and while they were able to get a pulse back we never had a pulse and only PEA. We did establish a good airway, suction out her got and were doing a high caliber CPR that even produced a blood pressure on the monitor but not seeing any gains. We did give her an amp of bicarb. Critical Care Note Critical Care Start Time: 15:00 Stop Time: 15:18 Total Time (minutes) 18 Date of : Oct 12, 2021 Time of : 15:18 Progress See nursing notes for times. 3 rounds of epinephrine were given by EMS and 3 more rounds were given here. Amp of bicarb. A liter of fluids was infused. High Caliber CPR as well as good oxygen and end-tidal originally 56 that dropped down to 30s after intubation was noted. Departure Impression Primary Impression: Cardiac arrest Disposition: 20 Condition: Departure-Patient Inst. Decision time for Depature: 15:18 Referrals: JORI TOLENTINO DO (PCP/Family) Primary Care Physician Patient Instructions: Sudden Cardiac Arrest Add. Discharge Instructions: All discharge instructions reviewed with patient and/or family. Voiced understanding. TERA CHACON Oct 12, 2021 15:33
== END 2021-10-12 15:18 | disposition expired ==
LOC: EDUNIT# 15:00 → ER 15:01
DX: I46.9 Cardiac arrest, cause unspecified (principal)